=== PATIENT | female | born 1960 | race Caucasian/White ===

== ENCOUNTER 2019-03-15 01:52 | Emergency (ER) | payer MEDICAID, SELFPAY ==
[2019-03-15 01:53] VITALS: BP 179/105; PULSE 88; RESP 18; TEMP 36.6; O2SAT 98; BMI 31.9
--- NOTE | 2019-03-15 01:56 | RAD_ITS ---
HISTORY: CPChest PainRAD - Chest EXAM: XR Chest 1 View: COMPARISON: None FINDINGS: # of images incl. paperwork: 1 Lungs are clear. Heart is not enlarged. Bones are normal. Pulmonary vascularity is distinct. No effusions. RAD/Chest 1 View (Portable) IMPRESSION: Normal. at 0224 Reported and signed by: Dmitriy Alonso MD Electronically Signed: Dmitriy Alonso MD at 2:23 EDT Tel , Service support ,
--- NOTE | 2019-03-15 01:56 | EKG12_ITS ---
Test Reason : CP Blood Pressure : / mmHG Vent. Rate : 081 BPM Atrial Rate : 081 BPM P-R Int : 124 ms QRS Dur : 086 ms QT Int : 376 ms P-R-T Axes : 039 008 014 degrees QTc Int : 436 ms Normal sinus rhythm Normal ECG Confirmed by RANJAN CRUZ ([id number]), acquisition editor CHUCHO FRAZIER ([id number] on 03/17/2019 6:09:45 AM Referred By: SUNSHINE Confirmed By:RANJAN CRUZ
--- NOTE | 2019-03-15 01:58 | ED.DCSUM_ITS ---
- ER Visit Summary Date of Service: 03/15/19 Chief Complaint: Chest pain [] History of Present Illness: The patient is a 58 F presents to the emergency department with chest pain. The patient states that her symptoms began rather acutely tonight. She states she ate normally at about 10 PM. She states that about midnight, she is still hungry. States that she made some rice. She states that she took one bite, and had a midsternal burning. States that he felt short of breath and lightheaded. It lasted about 4 or 5 minutes. She does have a history of GERD, but states this felt different. She has no known history of coronary vascular disease. She does have a strong family history of multiple risk factors. States currently, she is feeling improved, was concerned because again his pain did seem different. She denies any shortness of breath. She denies any exertional symptoms. She states otherwise, she has been in her normal state of health. Physical Examination: Vital signs reviewed General: Well-nourished, well-developed Head: Normocephalic, atraumatic Eyes: Pupils equal and reactive, extraocular muscles intact Neck, supple, no lymphadenopathy Heart: Regular rate and rhythm Respiratory: No distress, clear bilaterally Abdomen: Soft, nontender, nondistended, no peritoneal signs Back: Nontender Extremities: Nontender, no edema, no cords Skin: Normal color no rash Neuro: Alert and oriented, no focal or lateralizing deficits Test Results: [] Emergency Department Course and Treatment: The patient's presentation does seem atypical for acute coronary syndrome. EKG was obtained on patient arrival. Sinus rhythm without acute ischemic change. It was unchanged from prior. Screening labs are obtained. Patient's cardiac enzymes are normal. She did have improvement after GI cocktail. Again, my suspicion for cardiac is very low, however the patient does have risk factors. I did have a long discussion with her. She does have a heart score of 3, receiving points for her age and medical comorbidities. My suspicion is that this is likely an esophageal spasm, but given her risks she did agree to repeat cardiac enzyme testing at the 3- hour lia. This is still negative. The patient also states that sometimes, she wakes up and feels short of breath. She also has difficulty sleeping. I did review if she has had a sleep study, she states she has not had one for years. I do feel that appropriate outpatient follow-up with both surgery and pulmonology would be appropriate for this patient to determine endoscopy and further outpatient work-up for her dyspnea. She is comfortable this plan of care. She will be discharged home. Treatment Plan: [] Disposition: Discharge Impression: 1. Chest pain 2. Esophageal spasm This note was generated with [employer] dictation software. It may contain incorrect words, spelling, and punctuation that were not noted in review of the chart prior to signing ED Disposition - Plan for ED Patient: Instructions: ED Chest Pain NonCardiac Referrals: Isaiah Gardner MD [STAFF PHYSICIAN] - Pavan Perez DO [STAFF PHYSICIAN] -
[2019-03-15 02:02] VITALS: O2SAT 99
[2019-03-15 02:07] LABS: Absolute Lymphocyte Count 4.27 X10^3/ul (0.83-4.51); Absolute Neutrophil Count 3.8 X10^3/uL (2.0-7.7); Basophil# 0.05 X10^3/uL; Basophil% 0.5 % (0-1); Eosinophil# 0.14 X10^3/uL; Eosinophils% 1.5 % (0-5); Hematocrit 40.6 % (37-47); Hemoglobin 13.3 g/dl (12.0-15.0); Lymphocyte # 4.27 X10^3/ul (4.0); Lymphocyte % 45.7 % (19-41); Mean Corp Hgb Conc 32.8 g/gl (32-36); Mean Corpuscular Hgb 29.8 pg (27.0-32.0); Mean Corpuscular Volume 90.8 fL (81-99); Mean Platelet Vol. 9.8 fl (6.2-12.0); Monocyte# 1.13 X10^3/uL; Monocyte% 12.1 % (0-10); Neutrophil # 3.75 X10^3/uL (2.7-7.7); Neutrophil % 40.1 % (47-70); POSITIVE COUNT NO; POSITIVE DIFFERENTIAL NO; POSITIVE MORPHOLOGY NO; Platelet Count 314 K/mm3 (150-450); RBC Distribution Width CV 13.2 % (11.6-14.6); RBC Distribution Width SD 43.3 fl (35.1-43.9); Red Blood Count 4.47 M/mm3 (4.2-5.4); White Blood Count 9.4 K/mm3 (4.4-11.0)
[2019-03-15] MEDS: 0.9% Normal Saline 1,000 ML 150 ML IV (02:07)
[2019-03-15] MEDS: Ondansetron 4 MG/2 ML Vial IV (02:09)
[2019-03-15] MEDS: Mag Hydrox/Al Hydrox/Simeth 30 ML UDC PO (02:10)
[2019-03-15] MEDS: Aspirin 81 MG TAB.CHEW 324 MG PO (02:11)
[2019-03-15 02:24] LABS: Anion Gap 7 (5-15); BUN 14 mg/dL (7-18); BUN/Creat Ratio 19.1 RATIO (10-20); Calcium,Total 9.1 mg/dL (8.5-10.1); Chloride 103 mmol/L (98-107); Creatinine, Serum 0.73 mg/dL (0.55-1.02); EST Glomerular Filtration Rate 87 mL/min (>60); Est Glom Filt Rate - Afr Amer 106 mL/min (>60); Estimated Creatinine Clearance 74.31 ml/min; Glucose 113 mg/dL (74-106); Lipase 284 U/L (73-393); Potassium 3.7 mmol/L (3.5-5.1); Sodium Level 139 mmol/L (136-145)
--- NOTE | 2019-03-15 02:33 | EKG12_ITS ---
Test Reason : REPEAT Blood Pressure : / mmHG Vent. Rate : 069 BPM Atrial Rate : 069 BPM P-R Int : 122 ms QRS Dur : 084 ms QT Int : 412 ms P-R-T Axes : 032 -05 -03 degrees QTc Int : 441 ms Normal sinus rhythm Moderate voltage criteria for LVH, may be normal variant Cannot rule out Septal infarct , age undetermined Abnormal ECG Confirmed by RANJAN CRUZ ([id number]), proposal editor CHUCHO FRAZIER ([id number] on 03/17/2019 6:09:57 AM Referred By: SUNSHINE Confirmed By:RANJAN CRUZ
[2019-03-15 03:16] VITALS: BP 144/88; PULSE 79; RESP 16; O2SAT 97
[2019-03-15 04:25] VITALS: BP 125/68; PULSE 70; RESP 14; O2SAT 98
[2019-03-15 05:20] VITALS: BP 125/68; PULSE 75; RESP 16; O2SAT 96
== END 2019-03-15 05:30 | disposition home or self-care (01) ==
PROVIDERS: Emergency Provider Emergency Medicine; Family Provider Family Medicine Sports Medicine; PCP Family Medicine Sports Medicine
DX: K22.4 Dyskinesia of esophagus (principal); R07.89 Other chest pain; R06.00 Dyspnea, unspecified; K21.9 Gastro-esophageal reflux disease without esophagitis; E11.9 Type 2 diabetes mellitus without complications; I10 Essential (primary) hypertension; E78.00 Pure hypercholesterolemia, unspecified; Z79.84 Long term (current) use of oral hypoglycemic drugs; Z79.899 Other long term (current) drug therapy; Z87.891 Personal history of nicotine dependence
CPT/HCPCS: 71045; 80048; 83690; 84484; 85025; 93005; 96361; 96374; 99285; J7030; A4216; J2405

== ENCOUNTER 2020-04-11 08:54 | Emergency (ER) | payer MEDICAID, SELFPAY ==
[2020-04-11 08:55] VITALS: BP 170/103; PULSE 69; RESP 18; TEMP 36.4; O2SAT 97; BMI 29.9
--- NOTE | 2020-04-11 09:11 | ED.VIS.GEN ---
History of Present Illness Chief Complaint: Headache Informant: Patient Narrative: 59-year-old female presents with migraine. Patient states that she gets frequent migraines. States that she is currently living in a [facility] and is unable to get access to her medications for her migraines. States that again yesterday evening. Attributes it to the chicken and milk that she had for dinner. Denies any head trauma. States this is exactly the same as her previous migraines. Denies any fever, chills, vision change, neck pain. Does admit to nausea without vomiting. Past Medical History - Allergies and Home Meds Allergies/Adverse Reactions: Allergies cefaclor [From Ceclor] Allergy (Verified 04/11/20 08:58) Unknown Cephalosporins Allergy (Verified 04/11/20 08:58) Unknown codeine Allergy (Verified 04/11/20 08:58) Rash erythromycin base Allergy (Verified 04/11/20 08:58) Unknown fentanyl Allergy (Verified 04/11/20 08:58) Rash mold Allergy (Verified 04/11/20 08:58) Unknown nitrofurantoin [From Macrobid] Allergy (Verified 04/11/20 08:58) Other Penicillins Allergy (Verified 04/11/20 08:58) Rash Sulfa (Sulfonamide Antibiotics) Allergy (Verified 04/11/20 08:58) Rash sulfamethoxazole [From Bactrim] Allergy (Verified 04/11/20 08:58) Unknown tramadol HCl [From Ultram] Allergy (Verified 04/11/20 08:58) Unknown trimethoprim [From Bactrim] Allergy (Verified 04/11/20 08:58) Unknown OPIATES Allergy (Uncoded 04/11/20 08:58) Unknown STEROIDS Allergy (Uncoded 04/11/20 08:58) Unknown Primary Care Physician: Katerine Oliva MD [Primary Care Provider] - Past Medical History: - - Hypertension Surgical History: no surgical history Lives: - - Retirement Smoking Status: Never smoker Alcohol: None Drugs: None Review of Systems General: Denies: Chills, Fever, Sweats Eyes: Denies: Visual changes - bilaterally, Diplopia ENT: Denies: Rhinorrhea, Sore throat Cardiovascular: Denies: Chest pain, Palpitations Respiratory: Denies: Dyspnea, Cough, Dyspnea on exertion Gastrointestinal: Reports: Nausea. Denies: Abdominal pain, Vomiting, Diarrhea, Melena, Hematochezia Genitourinary: Denies: Dysuria, Hematuria, Frequency Musculoskeletal: Denies: Back pain, Extremity Pain Skin: Denies: Rash, Wounds Neurological: Reports: Headache. Denies: Weakness, Numbness Physical Exam Vital Signs/Narrative: Vital Signs Temp Pulse Resp BP Pulse Ox 04/11/20 08:55 97.6 F L 69 18 170/103 H 97 General: Well nourished, Well developed, No Acute Distress Head: Normocephalic, Atraumatic Eyes: Perrl, EOMI ENT: Moist mucous membranes, No rhinorrhea Neck: Supple, Nontender Cardiovascular: Regular rate, Regular rhythm, No murmurs Respiratory: No distress, CTA bilaterally, Chest nontender Abdomen: Soft, Nontender, Nondistended, Normal bowel sounds Back: Nontender, Normal Inspection Extremities: Nontender, No edema Skin: Normal color, No rash Neurological: Alert, Oriented x3, Cranial nerves II-XII grossly intact, Normal Strength, Normal Sensation Psychological: Normal affect, Normal Mood Diagnostic/Tx/Re-eval - Medical Decision Making Appears well and nontoxic. Vital signs within normal limits. No signs of meningismus. No focal neurologic deficit. Patient states this is exactly the same as her previous migraines. She was treated with 1 L of normal saline, Reglan, Benadryl, and Toradol. Patient feeling much improved following treatment. We will follow-up with her primary care provider and asked to return for any new or worsening symptoms. Stable at time of discharge. ED Disposition - Plan for ED Patient: Disposition: Home or Assisted Living Diagnosis: Migraine Instructions: ED, Migraine (Classical) Referrals: Katerine Oliva MD [Primary Care Provider] -
[2020-04-11] MEDS: DiphenhydrAMINE 50 MG/ML Syringe 25 MG IV (10:38)
[2020-04-11] MEDS: 0.9% Normal Saline 1,000 ML 999 ML IV (10:38)
[2020-04-11] MEDS: Metoclopramide 10 MG/2 ML Vial 5 MG IV (10:40)
[2020-04-11] MEDS: Ketorolac 15 MG/ML Vial IM (10:40)
[2020-04-11 11:47] VITALS: BP 123/77; PULSE 62; RESP 15; O2SAT 98
== END 2020-04-11 11:48 | disposition home or self-care (01) ==
PROVIDERS: Emergency Provider Emergency Medicine; PCP Family Medicine Sports Medicine
DX: G43.909 Migraine, unspecified, not intractable, without status migrainosus (principal); I10 Essential (primary) hypertension; Z59.0 Homelessness; Z88.0 Allergy status to penicillin; Z88.1 Allergy status to other antibiotic agents; Z88.2 Allergy status to sulfonamides; Z88.5 Allergy status to narcotic agent
CPT/HCPCS: 96361; 96372; 96374; 96375; 99284; J7030; A4216

== ENCOUNTER 2021-10-10 16:21 | Emergency (ER) | payer MEDICAID, SELFPAY ==
[2021-10-10 16:22] VITALS: BP 163/81; PULSE 100; RESP 18; TEMP 36.6; O2SAT 97; BMI 30.7
--- NOTE | 2021-10-10 17:35 | EX.ED.DYSGE1 ---
HPI History of Present Illness Chief Complaint: Rash Informant: patient Narrative Narrative: Patient's had a couple days of erythema and a burning sensation around her upper lip face and nose. She is wondering if this with athlete's foot from her dad's feet. She has no fevers or chills. Nothing really makes it better or worse. She denies any new mask or chemicals put on there other than triple antibiotic ointment after it started. Patient denied any medical problems or medicines to me. Then I talked to her more after looking in her chart. She has quite a few medical problems including diabetes. However she states she feels fine other than the face. Patient also has multiple allergies but has taken and tolerated doxycycline well. She cannot take any cephalosporin amoxicillin or penicillin. She cannot take sulfa. PFSH PFSH Home Medications Clobetasol Propionate/Emoll [Clobetasol Emollient 0.05% Crm] 30 g TP DAILY PRN PRN 10/20/16 [History Last Taken Unknown] alcohol swabs [Alcohol Prep Swabs] 1 ea TP DAILY 10/20/16 [History Last Taken Unknown] amlodipine [Norvasc] 5 mg PO DAILY #30 tab 10/20/16 [Rx Last Taken Unknown] budesonide [Pulmicort] 0.5 mg IH BID 10/20/16 [History Last Taken Unknown] chlorhexidine gluconate 1 applic TP DAILY 10/20/16 [History Last Taken Unknown] cyproheptadine 4 mg PO BID PRN PRN 10/20/16 [History Last Taken Unknown] epinephrine [Epipen] 0.3 mg IJ X1 PRN 10/20/16 [History Last Taken Unknown] estradiol 1 mg PO TID 10/20/16 [History Last Taken Unknown] estradiol [Estrace] 2 mg PO DAILY 10/20/16 [History Last Taken Unknown] estropipate 1.5 mg PO DAILY 10/20/16 [History Last Taken Unknown] ipratropium bromide 1 spray NASAL DAILY 10/20/16 [History Last Taken Unknown] lactulose [Constulose] 10 g PO DAILY 10/20/16 [History Last Taken Unknown] levothyroxine 112 mcg PO DAILY 10/20/16 [History Last Taken Unknown] lisinopril 10 mg PO DAILY #30 tab 10/20/16 [Rx Last Taken Unknown] loratadine 10 mg PO DAILY 10/20/16 [History Last Taken Unknown] meloxicam [Mobic] 7.5 mg PO BID PRN PRN 10/20/16 [History Last Taken Unknown] metformin 500 mg PO 4X/DAY 10/20/16 [History Last Taken Unknown] metronidazole [Metrogel] 1 applic VG DAILY PRN 10/20/16 [History Last Taken Unknown] multivitamin [Daily Multiple Vitamin] 1 ea PO DAILY 10/20/16 [History Last Taken Unknown] naproxen 500 mg PO BID 10/20/16 [History Last Taken Unknown] nystatin 1 applic TOPICAL QODAY 10/20/16 [History Last Taken Unknown] omeprazole 20 mg PO DAILY 10/20/16 [History Last Taken Unknown] pregabalin [Lyrica] 150 mg PO BID 10/20/16 [History Last Taken Unknown] promethazine 25 mg PO Q8H PRN PRN 10/20/16 [History Last Taken Unknown] rizatriptan 10 mg PO X1 10/20/16 [History Last Taken Unknown] simvastatin 20 mg PO QHS 10/20/16 [History Last Taken Unknown] spironolactone [Aldactone] 100 mg PO DAILY 10/20/16 [History Last Taken Unknown] triamcinolone acetonide [Nasacort] 1 spray NS BID 10/20/16 [History Last Taken Unknown] amlodipine 5 mg PO DAILY #30 tablet 10/27/16 [Rx Last Taken Unknown] lisinopril [Prinivil] 10 mg PO DAILY #30 tab 10/27/16 [Rx Last Taken Unknown] tizanidine 0.5 tab PO BID #30 tab 10/27/16 [Rx Last Taken Unknown] doxycycline monohydrate 100 mg PO BID #20 cap 10/10/21 [Rx Last Taken Unknown] Allergy/AdvReac Type Severity Reaction Status Date / Time cefaclor [From Ceclor] Allergy Unknown Verified 10/10/21 16:25 Cephalosporins Allergy Unknown Verified 10/10/21 16:25 codeine Allergy Rash Verified 10/10/21 16:25 erythromycin base Allergy Unknown Verified 10/10/21 16:25 fentanyl Allergy Rash Verified 10/10/21 16:25 mold Allergy Unknown Verified 10/10/21 16:25 nitrofurantoin Allergy Other Verified 10/10/21 16:25 [From Macrobid] Penicillins Allergy Rash Verified 10/10/21 16:25 Sulfa (Sulfonamide Allergy Rash Verified 10/10/21 16:25 Antibiotics) sulfamethoxazole Allergy Unknown Verified 10/10/21 16:25 [From Bactrim] tramadol HCl [From Ultram] Allergy Unknown Verified 04/11/20 08:58 trimethoprim [From Bactrim] Allergy Unknown Verified 04/11/20 08:58 OPIATES Allergy Unknown Uncoded 04/11/20 08:58 STEROIDS Allergy Unknown Uncoded 04/11/20 08:58 Social History Smoking Status: Unknown if ever smoked ROS ROS ED Constitutional Constitutional ED: Denies chills or fever(s) Eyes Eyes: Denies blurry vision ENT ENT ED: Reports other Details: See history of present illness. Cardiovascular Cardiovascular: Denies chest pain Respiratory/Chest Respiratory/Chest: Denies dyspnea Gastrointestinal Gastrointestinal: Denies nausea or vomiting Integumentary Reports rash EXAM Physical Exam Const Vital Signs: 10/10/21 16:22 Temperature 97.9 F Temperature Source Temporal Pulse Rate 100 Respiratory Rate 18 Blood Pressure 163/81 H Blood Pressure Mean 108 Pulse Ox 97 Oxygen Delivery Method Room Air Positive well nourished and well developed General Appearance ED: well developed and NAD; Negative for cyanotic or diaphoretic HEENT HEENT Narrative: Patient has erythema around the upper lip nose and the cheek right next to the nose. There is no abscess that I see. This is warm red and slightly raised. No vesicles. No weeping. Eyes PERRL and EOMs intact bilaterally Neck no JVD Resp normal respiratory effort and clear to auscultation bilaterally Cardio regular rate Neuro oriented x3 Sensorium / Orientation: alert Psych mental status grossly normal Skin Skin Narrative: Erythema of face as above. MDM MDM MDM Narrative Medical decision making narrative: This looks more like facial cellulitis than on tinea. She can use a topical antifungal cream. But I will start her on doxycycline. If it spreads, develops pain, she gets nausea vomiting fevers chills or headache she should return. Discharge Plan Triage Chief Complaint: Rash ED Provider: Ronaldo Capps Dx/Rx/DC Orders Clinical Impression: Cellulitis of face Instructions: ED Cellulitis, Facial Prescriptions: New doxycycline monohydrate 100 MG capsule 100 mg PO BID Qty: 20 RF: 0 No Action multivitamin [Daily Multiple] 1 EACH tablet 1 ea PO DAILY RF: 0 nystatin 1 APPLIC ointment 1 applic topical QODAY RF: 0 meloxicam [Mobic] 7.5 MG tablet 7.5 mg PO BID PRN PRN (Reason: inflammation) RF: 0 promethazine 25 MG tablet 25 mg PO Q8H PRN PRN (Reason: Nausea) RF: 0 omeprazole 20 MG capsule 20 mg PO DAILY RF: 0 budesonide [Pulmicort] 0.5 MG/2 ML suspension for nebulization 0.5 mg IH BID RF: 0 estradiol [Estrace] 2 MG tablet 2 mg PO DAILY RF: 0 alcohol swabs [Alcohol Prep Swabs] 1 EACH pads, medicated 1 ea TP DAILY RF: 0 epinephrine [EpiPen] 0.3 MG/0.3 ML auto-injector 0.3 mg IJ X1 PRN (Reason: allergic reaction) RF: 0 ipratropium bromide 1 SPRAY spray,non-aerosol 1 spray NASAL DAILY RF: 0 naproxen 500 MG tablet 500 mg PO BID RF: 0 levothyroxine 112 MCG tablet 112 mcg PO DAILY RF: 0 pregabalin [Lyrica] 150 MG capsule 150 mg PO BID RF: 0 chlorhexidine gluconate 15 ML towelette 1 applic TP DAILY RF: 0 metformin 500 MG tablet 500 mg PO 4X/DAY RF: 0 metronidazole [Vandazole] 1 APPLIC gel 1 applic VG DAILY PRN (Reason: vaginal itch) RF: 0 spironolactone [Aldactone] 100 MG tablet 100 mg PO DAILY RF: 0 estropipate 1.5 MG tablet 1.5 mg PO DAILY RF: 0 cyproheptadine 4 MG tablet 4 mg PO BID PRN PRN (Reason: Itching) RF: 0 estradiol 1 MG tablet 1 mg PO TID RF: 0 rizatriptan 10 MG tablet,disintegrating 10 mg PO X1 RF: 0 simvastatin 20 MG tablet 20 mg PO QHS RF: 0 triamcinolone acetonide [Nasacort] 1 SPRAY aerosol,spray 1 spray NS BID RF: 0 loratadine 10 MG tablet 10 mg PO DAILY RF: 0 lactulose [Constulose] 10 GM/15 ML solution 10 g PO DAILY RF: 0 Clobetasol Propionate/Emoll [Clobetasol Emollient 0.05% Crm] 15 GM Cream..G. 30 g TP DAILY PRN PRN (Reason: Itching) RF: 0 amlodipine [Norvasc] 5 MG tablet 5 mg PO DAILY Qty: 30 RF: 0 lisinopril 10 MG tablet 10 mg PO DAILY Qty: 30 RF: 0 tizanidine 4 MG tablet 0.5 tab PO BID Qty: 30 RF: 1 amlodipine 5 MG tablet 5 mg PO DAILY Qty: 30 RF: 1 lisinopril [Prinivil] 10 MG tablet 10 mg PO DAILY Qty: 30 RF: 1 Primary Care Provider: Mario Eckert Referrals: Mario Eckert MD [Primary Care Provider] - 3-5 Days if not improving Disposition Disposition: Home, Self Care
[2021-10-10] MEDS: Doxycycline 100 MG CAPSULE PO (17:54)
== END 2021-10-10 17:58 | disposition home or self-care (01) ==
PROVIDERS: Emergency Provider Emergency Medicine; PCP Internal Medicine
DX: L03.211 Cellulitis of face (principal)
CPT/HCPCS: 99283

== ENCOUNTER 2023-11-11 19:02 | Emergency (ER) | payer MEDICAID, SELFPAY ==
[2023-11-11 19:10] VITALS: BP 151/91; PULSE 82; RESP 18; TEMP 36.5; O2SAT 96; BMI 27.1
--- NOTE | 2023-11-11 19:40 | EX.ED.DYSGE1 ---
HPI History of Present Illness Chief Complaint: Dizziness Informant: patient Narrative Narrative: Patient presents with 2-3 episodes today where she had a brief period of spinning. She states this was not dizziness this was the world spinning around. The first time she had mild nausea but no vomiting. No dysfunction or fall. No headaches. No neurologic symptoms. She is concerned that this is due to her thyroid medicine. Evidently she has always been on 125 replacement thyroid. For the last year they tried her at 112 but that was just way too low. They moved her back up to 125 at the end of September. She just had her thyroid function checked on Wednesday and she states that she was too high. But she is not sure if this was a TSH that was too high or her medicine was too high but they did not change her dose and they are going to recheck her in 3 months. Patient also has many allergies to many medicines. She is also thinking that PTSD from her prior could be causing this. She thought a cleaning chemical in her house could have caused this but then she states that she was not cleaning and there were no chemicals. She does not have chest pain or trouble breathing. PFSH PFSH Home Medications Clobetasol Propionate/Emoll [Clobetasol Emollient 0.05% Crm] 30 g TP DAILY PRN PRN Itching 10/20/16 [History Last Taken Unknown] alcohol swabs (Alcohol Prep Swabs) 1 ea TP DAILY 10/20/16 [History Last Taken Unknown] amlodipine 5 mg tablet (Norvasc) 5 mg PO DAILY #30 tabs 10/20/16 [Rx Last Taken Unknown] budesonide 0.5 mg/2 mL suspension for nebulization (Pulmicort) 0.5 mg IH BID 10/20/16 [History Last Taken Unknown] chlorhexidine gluconate 2 % towelette 1 applic TP DAILY 10/20/16 [History Last Taken Unknown] cyproheptadine 4 mg tablet 4 mg PO BID PRN PRN Itching 10/20/16 [History Last Taken Unknown] epinephrine 0.3 mg/0.3 mL injection, auto-injector (EpiPen) 0.3 mg X1 PRN allergic reaction 10/20/16 [History Last Taken Unknown] estradiol 1 mg tablet 1 mg PO TID 10/20/16 [History Last Taken Unknown] estradiol 2 mg tablet (Estrace) 2 mg PO DAILY 10/20/16 [History Last Taken Unknown] estropipate 1.5 mg tablet 1.5 mg PO DAILY 10/20/16 [History Last Taken Unknown] ipratropium bromide 42 mcg (0.06 %) nasal spray 1 spray DAILY 10/20/16 [History Last Taken Unknown] lactulose 10 gram/15 mL oral solution (Constulose) 10 g PO DAILY 10/20/16 [History Last Taken Unknown] levothyroxine 112 mcg tablet 112 mcg PO DAILY 10/20/16 [History Last Taken Unknown] lisinopril 10 mg tablet 10 mg PO DAILY #30 tabs 10/20/16 [Rx Last Taken Unknown] loratadine 10 mg tablet 10 mg PO DAILY 10/20/16 [History Last Taken Unknown] meloxicam 7.5 mg tablet (Mobic) 7.5 mg PO BID PRN PRN inflammation 10/20/16 [History Last Taken Unknown] metformin 500 mg tablet 500 mg PO 4X/DAY 10/20/16 [History Last Taken Unknown] metronidazole 0.75 % (37.5 mg/5 gram) vaginal gel (Vandazole) 1 applic VG DAILY PRN vaginal itch 10/20/16 [History Last Taken Unknown] multivitamin (Daily Multiple tablet) 1 ea PO DAILY 10/20/16 [History Last Taken Unknown] naproxen 500 mg tablet 500 mg PO BID 10/20/16 [History Last Taken Unknown] nystatin 100,000 unit/gram topical ointment 1 applic topical QODAY 10/20/16 [History Last Taken Unknown] omeprazole 20 mg capsule,delayed release 20 mg PO DAILY 10/20/16 [History Last Taken Unknown] pregabalin 150 mg capsule (Lyrica) 150 mg PO BID 10/20/16 [History Last Taken Unknown] promethazine 25 mg tablet 25 mg PO Q8H PRN PRN Nausea 10/20/16 [History Last Taken Unknown] rizatriptan 10 mg disintegrating tablet 10 mg PO X1 10/20/16 [History Last Taken Unknown] simvastatin 20 mg tablet 20 mg PO QHS 10/20/16 [History Last Taken Unknown] spironolactone 100 mg tablet (Aldactone) 100 mg PO DAILY 10/20/16 [History Last Taken Unknown] triamcinolone acetonide 55 mcg nasal spray aerosol (Nasacort) 1 spray NS BID 10/20/16 [History Last Taken Unknown] amlodipine 5 mg tablet 5 mg PO DAILY ##30 10/27/16 [Rx Last Taken Unknown] lisinopril 10 mg tablet (Prinivil) 10 mg PO DAILY #30 tabs 10/27/16 [Rx Last Taken Unknown] tizanidine 4 mg tablet 0.5 tab PO BID #30 tabs 10/27/16 [Rx Last Taken Unknown] doxycycline monohydrate 100 mg capsule 100 mg PO BID #20 caps 10/10/21 [Rx Last Taken Unknown] meclizine 25 mg tablet 25 mg PO 4X/DAY PRN PRN Dizziness #20 tabs 11/11/23 [Rx Last Taken Unknown] Allergy/AdvReac Type Severity Reaction Status Date / Time buprenorphine Allergy PT UNSURE Verified 11/11/23 19:10 OF REACTION cefaclor [From Ceclor] Allergy Unknown Verified 11/11/23 19:10 Cephalosporins Allergy Unknown Verified 11/11/23 19:10 codeine Allergy Rash Verified 11/11/23 19:10 Corticosteroids Allergy NEEDS Verified 11/11/23 19:10 (Glucocorticoids) FOLLOW-UP [steroids] erythromycin base Allergy Unknown Verified 11/11/23 19:10 fentanyl Allergy Rash Verified 11/11/23 19:10 isopropyl alcohol Allergy Rash Verified 11/11/23 19:10 latex Allergy PT UNSURE Verified 11/11/23 19:10 OF REACTION levothyroxine Allergy Other Verified 11/11/23 19:10 mold Allergy Unknown Verified 11/11/23 19:10 nitrofurantoin Allergy Other Verified 11/11/23 19:10 [From Macrobid] oats Allergy Abd Verified 11/11/23 19:10 cramps/diarrhea Opioids - Morphine Analogues Allergy NEEDS Verified 11/11/23 19:10 FOLLOW-UP oxycodone Allergy Vomiting Verified 11/11/23 19:10 Penicillins Allergy Rash Verified 11/11/23 19:10 Sulfa (Sulfonamide Allergy Rash Verified 11/11/23 19:10 Antibiotics) sulfamethoxazole Allergy Unknown Verified 11/11/23 19:10 [From Bactrim] tramadol HCl [From Ultram] Allergy Unknown Verified 11/11/23 19:10 trimethoprim [From Bactrim] Allergy Unknown Verified 11/11/23 19:10 wheat bran Allergy Abd Verified 11/11/23 19:10 [From Senokot Wheat Bran] cramps/diarrhea whey Allergy Abd Verified 11/11/23 19:10 cramps/diarrhea Social History Smoking Status: Unknown if ever smoked ROS ROS ED ROS Narrative A complete review of systems was performed and is negative except as documented in the history of present illness. Some specific details below. Constitutional: No recent fevers or chills. She does not feel systemically ill. In between these brief episodes she feels just fine. EYE: No visual complaints or pain. She has spinning but no actual change in her vision. ENT: No difficulty swallowing. No swelling. No pain. CV: No chest pain or palpitations. Not syncopal or presyncopal. Respiratory: No dyspnea. No hemoptysis. No difficulty taking breaths. GI: Mild nausea only with the first episode. None now. She never vomited. : No frequency dysuria or hematuria. Musculoskeletal: No recent trauma. No pains. Skin: No rash. Nondiaphoretic. Neuro: No weakness or numbness. See history of present illness. Endocrine: No polyuria or polydipsia. EXAM Physical Exam Narrative Exam Narrative: CONSTITUTIONAL: Patient is nontoxic in appearance. The patient looks comfortable. HEENT: No notable trauma. Mucous membranes moist. No sinus tenderness. No indication of pain with swallowing. Tympanic membranes are both normal. EYES: No conjunctival injection. No proptosis. CARDIOVASCULAR: Regular rate. Regular rhythm. No notable murmur. No JVD. RESPIRATORY: No respiratory distress. Breathing is unlabored. No wheezes. No rhonchi. No rales. No pain with a deep breath. GASTROINTESTINAL: Not distended. Bowel sounds are normal. No tenderness. GENITOURINARY: No tenderness over the bladder. No CVA tenderness. MUSCULOSKELETAL: Atraumatic. No peripheral edema. No tenderness. NEUROLOGICAL: Patient is alert and appropriate. No focal deficit noted. Patient is oriented x 3. There is no discoordination. She can turn her left right up and down and gets no symptoms and is not having symptoms now. SKIN: No noted rashes. No diaphoresis. PSYCHIATRIC: Patient is mildly anxious. Understandable considering her concerns. Const Vital Signs: 11/11/23 19:10 11/11/23 19:31 Temperature 97.7 F L Temperature Source Temporal Pulse Rate 82 Respiratory Rate 18 Respiratory Effort Normal Non-Labored Respiratory Pattern Normal Blood Pressure 151/91 H Blood Pressure Mean 111 Pulse Ox 96 Oxygen Delivery Method Room Air MDM MDM MDM Narrative Medical decision making narrative: Patient's CBC is overall normal. Patient's electrolytes are not showing any marked abnormalities. Mild elevation of the chloride and glucose but this is not causing her symptoms. Patient's TSH is quite high at 15.6. However, this is not unexpected as she has just been restarted back on thyroid meds after being off for quite some time. She will need to stay on her thyroid meds. This is going to be checked as an outpatient per her primary doctor. She is not having vertigo now. I will write for some meclizine that she can take on a PRN basis if she has symptoms. Lab Data Attestation: I reviewed the patient's lab results. Labs: Laboratory Results - last 24 hr 11/11/23 19:50 WBC 6.9 RBC 4.06 L Hgb 12.3 Hct 37.1 MCV 91.4 MCH 30.3 MCHC 33.2 RDW Std Deviation 44.8 H RDW Coeff of Samy 13.2 Plt Count 296 MPV 9.8 Immature Gran % (Auto) 0.300 Neut % (Auto) 57.0 Lymph % (Auto) 28.4 [place] % (Auto) 13.0 H Eos % (Auto) 0.9 Baso % (Auto) 0.4 Absolute Neuts (auto) 4.0 Absolute Lymphs (auto) 1.97 Nucleated RBC % 0 Sodium 141 Potassium 3.7 Chloride 110 H Carbon Dioxide 27.0 Anion Gap 4 L BUN 13 Creatinine 0.78 Estim Creat Clear Calc 73.63 Est GFR (MDRD) Af Amer 96 Est GFR (MDRD) Non-Af 80 BUN/Creatinine Ratio 16.6 Glucose 115 H Calcium 8.9 TSH 15.60 H Discharge Plan Triage Chief Complaint: Dizziness ED Provider: Ronaldo Capps Dx/Rx/DC Orders Clinical Impression: Hypothyroidism, Vertigo Instructions: ED BPV Vertigo, ED Hypothyroidism Prescriptions: New meclizine 25 mg tablet 25 mg PO 4X/DAY PRN PRN (Reason: Dizziness) Qty: 20 0RF No Action multivitamin [Daily Multiple] 1 EACH tablet 1 ea PO DAILY nystatin 1 APPLIC ointment 1 applic topical QODAY meloxicam [Mobic] 7.5 MG tablet 7.5 mg PO BID PRN PRN (Reason: inflammation) promethazine 25 MG tablet 25 mg PO Q8H PRN PRN (Reason: Nausea) omeprazole 20 MG capsule 20 mg PO DAILY budesonide [Pulmicort] 0.5 MG/2 ML suspension for nebulization 0.5 mg IH BID estradiol [Estrace] 2 MG tablet 2 mg PO DAILY alcohol swabs [Alcohol Prep Swabs] 1 EACH pads, medicated 1 ea TP DAILY epinephrine [EpiPen] 0.3 MG/0.3 ML auto-injector 0.3 mg IJ X1 PRN (Reason: allergic reaction) ipratropium bromide 1 SPRAY spray,non-aerosol 1 spray NASAL DAILY naproxen 500 MG tablet 500 mg PO BID levothyroxine 112 MCG tablet 112 mcg PO DAILY pregabalin [Lyrica] 150 MG capsule 150 mg PO BID chlorhexidine gluconate 15 ML towelette 1 applic TP DAILY metformin 500 MG tablet 500 mg PO 4X/DAY metronidazole [Vandazole] 1 APPLIC gel 1 applic VG DAILY PRN (Reason: vaginal itch) spironolactone [Aldactone] 100 MG tablet 100 mg PO DAILY estropipate 1.5 MG tablet 1.5 mg PO DAILY cyproheptadine 4 MG tablet 4 mg PO BID PRN PRN (Reason: Itching) estradiol 1 MG tablet 1 mg PO TID rizatriptan 10 MG tablet,disintegrating 10 mg PO X1 simvastatin 20 MG tablet 20 mg PO QHS triamcinolone acetonide [Nasacort] 1 SPRAY aerosol,spray 1 spray NS BID loratadine 10 MG tablet 10 mg PO DAILY lactulose [Constulose] 10 GM/15 ML solution 10 g PO DAILY Clobetasol Propionate/Emoll [Clobetasol Emollient 0.05% Crm] 15 GM Cream..G. 30 g TP DAILY PRN PRN (Reason: Itching) amlodipine [Norvasc] 5 MG tablet 5 mg PO DAILY Qty: 30 0RF lisinopril 10 MG tablet 10 mg PO DAILY Qty: 30 0RF tizanidine 4 MG tablet 0.5 tab PO BID Qty: 30 1RF amlodipine 5 MG tablet 5 mg PO DAILY Qty: 30 1RF lisinopril [Prinivil] 10 MG tablet 10 mg PO DAILY Qty: 30 1RF doxycycline monohydrate 100 MG capsule 100 mg PO BID Qty: 20 0RF Primary Care Provider: Mario Eckert Referrals: Mario Eckert MD [Primary Care Provider] - 3-5 Days if not improving Disposition Disposition: Home, Self Care
[2023-11-11 20:00] LABS: Absolute Lymphocyte Count 1.97 X10^3/uL (0.83-4.51); Basophil# 0.03 X10^3/uL; Basophil% 0.4 % (0-1); Eosinophil# 0.06 X10^3/uL; Eosinophils% 0.9 % (0-5); Hematocrit 37.1 % (37-47); Hemoglobin 12.3 g/dL (12.0-15.0); Lymphocyte # 1.97 X10^3/ul (0.83-4.51); Lymphocyte % 28.4 % (19-41); Mean Corp Hgb Conc 33.2 g/dL (32-36); Mean Corpuscular Hgb 30.3 pg (27.0-32.0); Mean Corpuscular Volume 91.4 fL (81-99); Mean Platelet Vol. 9.8 fl (6.2-12.0); NRBC Flagged by Analyzer 0 % (0-5); Neutrophil # 3.96 X10^3/uL (2.7-7.7); Platelet Count 296 K/mm3 (150-450); RBC Distribution Width CV 13.2 % (11.6-14.6); RBC Distribution Width SD 44.8 fl (35.1-43.9); Red Blood Count 4.06 M/mm3 (4.2-5.4); White Blood Count 6.9 K/mm3 (4.4-11.0)
--- OUTSIDE RECORDS SUMMARY | 2023-11-11 20:00 | XMS RPT_ITS | CCD ---
Author Name Unknown Address [address] [place] [address] Organization [facility] Care Team Providers Care Environmental Lead Name Role Phone Tnoi Johnson DO Jennifer Unavailable [place] ORDNANCE TECHNICIAN.Nyasia MCNULTY Unavailable [phone] Shannan Raymond Unavailable Mario John MD Primary Care Provider ALVARO, MARIO A Primary Care Unavailable SHALOM GARZA Attending Unavailable ALVARO, MARIO A Primary Care Unavailable MARILIA WAGNER Attending Unavailable ALVARO, MARIO A Primary Care Unavailable ALVARO, MARIO A Referring Unavailable ALVARO, MARIO A Primary Care Unavailable RONNA FENG Attending Unavailable ALVARO, MARIO A Primary Care Unavailable TRENTON BRANCH Attending Unavailable CHULA VO Referring Unavailab le ALVARO, MARIO A Primary Care Unavailable ALVARO, MARIO A Primary Care Unavailable ALVARO, MARIO A Primary Care Unavailable ALVARO, MARIO A Primary Care Unavailable AVLARO, MARIO A Attending Unavailable ALVARO, MARIO A Primary Care Unavailable BERRY GREENFIELD Attending Unavailable ALVARO, MARIO A Primary Care Unavailable ANNE RAMIREZ Attending Unavailable ALVARO, MARIO A Primary Care Unavailable KYUNG CONROY Attending Unavailable SHALOM GARZA Referring Unavailable ALVARO, MARIO A Primary Care Unavailable REBECCA RICCI Attending Unavailable ALVARO, MARIO A Primary Care Unavailable TRENTON BRANCH Referring Unavailable ALVARO, MARIO A Primary Care Unavailable JOSE CARLOSTRENTON VALDES Attending Unavailable ALVARO, MARIO A Primary Care Unavailable ALVARO, MARIO A Referring Unavailable CHULA VO Attending Unavailab le ALVARO, MARIO A Primary Care Unavailable KAHN, EUGENIE M Referring Unavailable ALVARO, MARIO A Primary Care Unavailable KAHN, EUGENIE M Referring Unavailable KAHN, EUGENIE M Attending Unavailable ALVARO, MARIO A Primary Care Unavailable ALVARO, MARIO A Attending Unavailable ALVARO, MARIO A Primary Care Unavailable JENARO COLMENARES Attending Unavailable ALVARO, MARIO A Primary Care Unavailable IRISH RAMOS Attending Unavailable ALVARO, MARIO A Primary Care Unavailable ALVARO, MARIO A Referring Unavailable ALVARO, MARIO A Attending Unavailable ALVARO, MARIO A Primary Care Unavailable RONNA FENG Attending Unavailable ALVARO, MARIO A Primary Care Unavailable MARILIA WAGNER Attending Unavailable ALVARO, MARIO A Primary Care Unavailable MARILIA WAGNER Referring Unavailable ALVARO, MARIO A Primary Care Unavailable MARILIA WAGNER Referring Unavailable Allergies Allergy Classification Reported Allergen(s) Allergy Type Date of Onset Reaction(s) Facility (20 sources) Buprenorphine; Translations: [BUPRENORPHINE HCL] Drug Allergy 04-28-20 07 Unknown [facility] (20 sources) Cefaclor; Translations: [CEFACLOR] Drug Allergy 06-22-20 07 Unknown [facility] (17 sources) Cephalosporins (Antibiotic); Translations: [CEPHALOSPORINS] Drug Allergy 01-31-20 03 [facility] (20 sources) Codeine; Translations: [CODEINE] Drug Allergy 07-11-20 03 GI Upset [facility] (20 sources) Erythromycin; Translations: [ERYTHROMYCIN BASE] Drug Allergy 01-31-20 03 [facility] (20 sources) Ethanol; Translations: [ALCOHOL] Drug Allergy 07-11-20 03 Rash [facility] Work Phone: (20 sources) fentaNYL; Translations: [FENTANYL] Drug Allergy 07-11-20 03 GI Upset, Vomiting [facility] (17 sources) Glucocorticoid; Translations: [CORTICOSTEROIDS (GLUCOCORTICOIDS)] Drug Allergy 10-27-19 17 Anaphylaxis [facility] Work Phone: (20 sources) Latex; Translations: [LATEX] Propensity to adverse reactions to drug 04-28-20 07 Unknown [facility] (20 sources) Mold Extract; Translations: [MOLD] Drug Allergy 03-15-20 19 Other: See Comments [facility] (20 sources) NITROFURANTOIN, MACROCRYSTALS / Nitrofurantoin, Monohydrate; Translations: [NITROFURANTOIN MONOHYD/M-CRYST] Drug Allergy 01-15-20 16 [facility] Work Phone: (20 sources) Oats preparation; Translations: [OATS] Drug Allergy 05-25-20 08 GI Upset [facility] (20 sources) oxyCODONE; Translations: [OXYCODONE] Drug Allergy 07-11-20 03 GI Upset, Vomiting [facility] (17 sources) Penicillins; Translations: [PENICILLINS] Drug Allergy 01-31-20 03 Rash, [facility] (20 sources) Sulfamethoxazole / Trimethoprim; Translations: [SULFAMETHOXAZOLE-T RIMETHOPRIM] Drug Allergy 06-01-20 16 [facility] (20 sources) Sulfonamides (Antibiotic); Translations: [SULFA (SULFONAMIDE ANTIBIOTICS)] Drug Allergy 01-31-20 03 [facility] (20 sources) Wheat bran; Translations: [WHEAT BRAN] Drug Allergy 05-25-20 08 GI Upset [facility] (20 sources) Med To Dry Up Milk After Childbirth [Other] Propensity to adverse reactions 07-11-20 03 Anaphylaxis [facility] (20 sources) Molds [Other] Propensity to adverse reactions 07-11-20 03 Shortness of Breath [facility] (20 sources) Steroids [Other] Propensity to adverse reactions 07-11-20 03 Unknown [facility] (20 sources) Weydex; Translations: [WEYDEX] Propensity to adverse reactions to drug 09-20-20 12 Unknown [facility] (20 sources) Cephalosporins (Antibiotic) Drug Allergy 01-31-20 03 [facility] (20 sources) Glucocorticoid preparation Drug Allergy 10-27-19 17 Anaphylaxis [facility] Work Phone: (20 sources) Penicillins Drug Allergy 01-31-20 03 Rash, [facility] (20 sources) Trimethoprim; Translations: [TRIMETHOPRIM] Drug Allergy 04-11-20 Unknown [facility] (3 sources) levothyroxine; Translations: [LEVOTHYROXINE] Drug Allergy 09-22-20 Other: See Comments [facility] Work Phone: (1 source) OTHER; Translations: [OTHER] Propensity to adverse reactions (disorder) 07-11-20 [facility] [place] [facility] Medications Current Medications Medication Drug Class(es) Dates Sig (Normalized) Sig (Original) clindamycin 150 mg oral capsule (1 source) Lincosamide Antibacterial Start: 01-01-2023 End: 01-06-2023 take 3 capsules by mouth three times daily clindamycin (CLEOCIN) 150 mg capsule Take 3 capsules by mouth three times daily for 5 days. 45 capsule 0 01/01/2023 01/06/2023 Active Completed/Discontinued Medications Medication Drug Class(es) Dates Sig (Normalized) Sig (Original) [id number] 200 actuat albuterol 0.09 mg/actuat metered dose inhaler (20 sources) beta2-Adrenergic Agonist Start: 06-18-2023 End: 08-30-2023 take 2 puff(s) by inhalation every four hours for wheezing albuterol HFA (PROVENTIL HFA, VENTOLIN HFA) 90 mcg/actuation inhaler INHALE 2 PUFFS DIRECTED EVERY 4 HOURS IF NEEDED FOR WHEEZING SHORTNESS OF BREATH 8.5 g 1 08/30/2023 Active Problems Active Problems Problem Classification Problem Date Documented Da te Episodic/Chronic Acquired foot deformities (1 source) Hammer toe; Translations: [Other hammer toe(s) (acquired), right foot] Chronic Allergic reactions (5 sources) Eczema; Translations: [Dermatitis, unspecified] Episodic Anxiety disorders (2 sources) Acute stress disorder; Translations: [Acute stress reaction] Chronic Complications of surgical procedures or medical care (20 sources) Postoperative hypothyroidism; Translations: [Postprocedural hypothyroidism] Onset: 06-21-2019 06-21-2019 Chronic Diabetes mellitus with complications (20 sources) Neuropathy due to diabetes mellitus; Translations: [Type 2 diabetes mellitus with diabetic neuropathy, unspecified] Onset: 11-09-2016 11-09-2016 Chronic Diabetes mellitus without complication (20 sources) Type 2 diabetes mellitus; Translations: [Type 2 diabetes mellitus without complications] 11-09-2016 Chronic Diseases of white blood cells (20 sources) Leukocytosis; Translations: [Elevated white blood cell count, unspecified] Onset: 12-03-2021 12-03-2021 Chronic Disorders of lipid metabolism (20 sources) Pure hypercholesterolemia ; Translations: [Pure hypercholesterolemia , unspecified] Onset: 09-30-2016 09-30-2016 Chronic Disorders of teeth and jaw (2 sources) Toothache; Translations: [Other specified disorders of teeth and supporting structures] Episodic Endometriosis (20 sources) Endometriosis (clinical); Translations: [Endometriosis, unspecified] Onset: 12-08-2022 Chronic Essential hypertension (20 sources) Essential hypertension; Translations: [Essential (primary) hypertension] Onset: 08-01-2017 08-01-2017 Chronic Genitourinary symptoms and ill-defined conditions (3 sources) Mixed urinary incontinence; Translations: [Mixed incontinence] Onset: 04-16-2023 Chronic Headache; including migraine (20 sources) Migraine with aura; Translations: [Migraine with aura, not intractable, without status migrainosus] Onset: 05-09-2003 04-02-2018 Chronic Menopausal disorders (20 sources) Menopausal symptom; Translations: [Menopausal and female climacteric states] Onset: 12-08-2022 Chronic Nutritional deficiencies (20 sources) Vitamin D deficiency; Translations: [Vitamin D deficiency, unspecified] 11-09-2016 Chronic Osteoarthritis (6 sources) Arthritis; Translations: [Unspecified osteoarthritis, unspecified site] Onset: 01-08-2023 Chronic Other aftercare (5 sources) Patient encounter status; Translations: [Other fci (current) drug therapy] Episodic Other aftercare (1 source) Drug therapy finding; Translations: [Other fci (current) drug therapy] Episodic Other connective tissue disease (20 sources) Plantar fasciitis; Translations: [Plantar fascial fibromatosis] 11-09-2016 Episodic Other connective tissue disease (1 source) Cyst ; Translations: [Ganglion, multiple sites] Episodic Other connective tissue disease (2 sources) Pain of toe of right foot; Translations: [Pain in right toe(s)] Episodic Other connective tissue disease (2 sources) Pain of toe of left foot; Translations: [Pain in left toe(s)] Episodic Other connective tissue disease (2 sources) Muscle pain; Translations: [Myalgia, unspecified site] Episodic Other connective tissue disease (1 source) Bilateral plantar fasciitis; Translations: [Plantar fascial fibromatosis] Episodic Other diseases of bladder and urethra (3 sources) Bladder dysfunction; Translations: [Neuromuscular dysfunction of bladder, unspecified] Chronic Other diseases of bladder and urethra (1 source) Neuromuscular dysfunction of bladder, unspecified; Translations: [Bladder dysfunction] Onset: 04-16-2023 Chronic Other diseases of veins and lymphatics (2 sources) Vascular insufficiency; Translations: [Venous insufficiency (chronic) (peripheral)] Episodic Other endocrine disorders (20 sources) Polycystic ovary; Translations: [Polycystic ovarian syndrome] Onset: 11-14-2003 02-04-2004 Chronic Other gastrointestinal disorders (20 sources) Celiac disease; Translations: [Celiac disease] Onset: 11-14-2003 02-04-2004 Chronic Other gastrointestinal disorders (2 sources) Dysphagia; Translations: [Dysphagia, unspecified] Episodic Other inflammatory condition of skin (3 sources) Rosacea; Translations: [Rosacea, unspecified] Chronic Other inflammatory condition of skin (1 source) Seborrheic dermatitis; Translations: [Seborrheic dermatitis, unspecified] Episodic Other injuries and conditions due to external causes (1 source) Unspecified injury of left hip, initial encounter; Translations: [Hip injury, left, initial encounter] Onset: 11-08-2023 Episodic Other lower respiratory disease (1 source) Cough; Translations: [Other cough] Episodic Other lower respiratory disease (1 source) Dyspnea; Translations: [Shortness of breath] Episodic Other nervous system disorders (20 sources) Chronic pain syndrome; Translations: [Chronic pain syndrome] Onset: 04-27-2012 04-27-2012 Chronic Other nervous system disorders (3 sources) Impairment of balance; Translations: [Other abnormalities of gait and mobility] Episodic Other non-traumatic joint disorders (20 sources) Arthropathy of joint of hand; Translations: [Polyarthritis, unspecified] Onset: 12-18-2015 12-18-2015 Chronic Other non-traumatic joint disorders (1 source) Pain in left hip; Translations: [Left hip pain] Onset: 11-08-2023 Episodic Other nutritional; endocrine; and metabolic disorders (20 sources) Obese class I; Translations: [Obesity, unspecified] Onset: 01-20-2019 01-20-2019 Chronic Other screening for suspected conditions (not mental disorders or infectious disease) (1 source) Mammography abnormal; Translations: [Other abnormal and inconclusive findings on diagnostic imaging of breast] Episodic Other skin disorders (20 sources) Disorder of skin of vulva; Translations: [Disorder of the skin and subcutaneous tissue, unspecified] 06-13-2020 Episodic Other skin disorders (1 source) Hypertrophic scar; Translations: [Hypertrophic scar] Episodic Other skin disorders (2 sources) Ingrowing nail; Translations: [Ingrowing nail] Episodic Other skin disorders (2 sources) Excessive hair growth; Translations: [Hypertrichosis, unspecified] Episodic Other upper respiratory disease (10 sources) Seasonal allergy; Translations: [Other seasonal allergic rhinitis] Chronic Other upper respiratory disease (1 source) Pain of nose; Translations: [Other specified disorders of nose and nasal sinuses] Episodic Other upper respiratory disease (1 source) Atrophic rhinitis; Translations: [Other specified disorders of nose and nasal sinuses] Episodic Other upper respiratory disease (1 source) Crusting on nose; Translations: [Other specified disorders of nose and nasal sinuses] Episodic Other upper respiratory disease (2 sources) Change in voice; Translations: [Unspecified voice and resonance disorder] Episodic Other upper respiratory infections (1 source) Acute maxillary sinusitis; Translations: [Acute maxillary sinusitis, unspecified] Episodic Peripheral and visceral atherosclerosis (2 sources) Peripheral vascular disease; Translations: [Peripheral vascular disease, unspecified] Chronic Residual codes; unclassified (1 source) Flushing; Translations: [Flushing] Episodic Spondylosis; intervertebral disc disorders; other back problems (20 sources) Prolapsed cervical intervertebral disc without myelopathy; Translations: [Other cervical disc displacement, unspecified cervical region] Onset: 12-25-2003 02-04-2004 Chronic Unclassified (1 source) OPENED IN ERROR 06-17-2023 Viral infection (5 sources) Verruca vulgaris; Translations: [Other viral warts] Episodic Past or Other Problems Problem Classification Problem Date Documented Da te Episodic/Chronic Other aftercare (1 source) Other buttermaker helper (current) drug therapy; Translations: [Encounter for long-term (current) use of medications] Onset: 01-08-2023 Episodic Other connective tissue disease (20 sources) Fibromyalgia; Translations: [Fibromyalgia] Onset: 04-27-2012 04-27-2012 Episodic Other connective tissue disease (20 sources) Ganglion cyst; Translations: [Ganglion, unspecified site] Onset: 12-03-2021 12-03-2021 Episodic Other connective tissue disease (1 source) Fibromyalgia; Translations: [Fibromyalgia] Onset: 04-27-2012 Episodic Other gastrointestinal disorders (20 sources) Constipation; Translations: [Constipation, unspecified] Onset: 12-03-2021 12-03-2021 Episodic Other nervous system disorders (1 source) Other abnormalities of gait and mobility; Translations: [Balance disorder] Onset: 04-16-2023 Episodic Other non-traumatic joint disorders (20 sources) Multiple joint pain; Translations: [Pain in unspecified joint] Onset: 10-13-2017 10-13-2017 Episodic Other non-traumatic joint disorders (20 sources) Ankle stiff; Translations: [Stiffness of unspecified ankle, not elsewhere classified] Onset: 03-03-2018 03-03-2018 Episodic Other skin disorders (20 sources) Hirsutism; Translations: [Hirsutism] Onset: 12-08-2022 Episodic Other skin disorders (1 source) Hypertrichosis, unspecified; Translations: [Excessive hair growth] Onset: 12-22-2022 Episodic Other skin disorders (1 source) Hirsutism; Translations: [Hirsutism] Onset: 12-08-2022 Episodic Spondylosis; intervertebral disc disorders; other back problems (20 sources) Neck pain; Translations: [Cervicalgia] Onset: 12-25-2003 02-04-2004 Episodic Results Test Name Value Interpretation Reference Range Facil ity Vital Signs Date Time Vital Sign Value Performing Clinician Faci lity 08-16-2023 19:11-0500 Body height 162.6 cm Mario John MD Work Phone: [facility] 08-16-2023 19:11-0500 Body temperature 97.2 [degF] Mario John MD Work Phone: [facility] 08-16-2023 19:11-0500 Body weight 74.84 kg Mario John MD Work Phone: [facility] 08-16-2023 19:11-0500 Diastolic blood pressure 81 mm[Hg] Mairo John MD Work Phone: [facility] 08-16-2023 19:11-0500 Heart rate 74 /min Mario John MD Work Phone: [facility] 08-16-2023 19:11-0500 Respiratory rate 16 /min Mario John MD Work Phone: [facility] 08-16-2023 19:11-0500 SaO2% (BldA) [Mass fraction] 99 % Mario John MD Work Phone: [facility] 08-16-2023 19:11-0500 Systolic blood pressure 121 mm[Hg] Mario John MD Work Phone: [facility] 04-21-2023 14:17-0400 Body height 162.6 cm Trenton Branch DO Work Phone: [facility] 04-21-2023 14:17-0400 Body weight 77.56 kg Trenton Smileyry DO Work Phone: [facility] 04-21-2023 14:17-0400 Respiratory rate 12 /min Trenton Smileyry DO Work Phone: [facility] 03-24-2023 14:43-0400 Body height 162.6 cm Anne Ramirez ORDNANCE TECHNICIAN.WATER TREATMENT PLANT SUPERVISOR Work Phone: [facility] 03-24-2023 14:43-0400 Body weight 77.56 kg Anne Ramirez ORDNANCE TECHNICIAN.WATER TREATMENT PLANT SUPERVISOR Work Phone: [facility] 03-24-2023 14:43-0400 Diastolic blood pressure 82 mm[Hg] Anne Ramirez ORDNANCE TECHNICIAN.WATER TREATMENT PLANT SUPERVISOR Work Phone: [facility] 03-24-2023 14:43-0400 Heart rate 85 /min Anne Ramirez ORDNANCE TECHNICIAN.WATER TREATMENT PLANT SUPERVISOR Work Phone: [facility] 03-24-2023 14:43-0400 Systolic blood pressure 140 mm[Hg] Anne Ramirez ORDNANCE TECHNICIAN.WATER TREATMENT PLANT SUPERVISOR Work Phone: [facility] 03-12-2023 15:05-0400 Body height 162.6 cm Trenton Branch DO Work Phone: [facility] 03-12-2023 15:05-0400 Body weight 79.38 kg Trenton Branch DO Work Phone: [facility] 03-01-2023 19:19-0400 Body height 162.6 cm Mario John MD Work Phone: [facility] 03-01-2023 19:19-0400 Body temperature 98.1 [degF] Mario John MD Work Phone: [facility] 03-01-2023 19:19-0400 Body weight 79.38 kg Mario John MD Work Phone: [facility] 03-01-2023 19:19-0400 Diastolic blood pressure 87 mm[Hg] Mario John MD Work Phone: [facility] 03-01-2023 19:19-0400 Heart rate 85 /min Mario John MD Work Phone: [facility] 03-01-2023 19:19-0400 Respiratory rate 16 /min Mario John MD Work Phone: [facility] 03-01-2023 19:19-0400 SaO2% (BldA) [Mass fraction] 99 % Mario John MD Work Phone: [facility] 03-01-2023 19:19-0400 Systolic blood pressure 128 mm[Hg] Mario John MD Work Phone: [facility] 01-27-2023 15:20-0400 Body height 162.6 cm Marilia Wagner ORDNANCE TECHNICIAN.WATER TREATMENT PLANT SUPERVISOR Work Phone: [facility] 01-27-2023 15:20-0400 Body temperature 98.29 [degF] Marilia Wagner ORDNANCE TECHNICIAN.WATER TREATMENT PLANT SUPERVISOR Work Phone: [facility] 01-27-2023 15:20-0400 Body weight 76.02 kg Marilia Rygaby ORDNANCE TECHNICIAN.WATER TREATMENT PLANT SUPERVISOR Work Phone: [facility] 01-27-2023 15:20-0400 Diastolic blood pressure 77 mm[Hg] Marilia Adriennel ORDNANCE TECHNICIAN.WATER TREATMENT PLANT SUPERVISOR Work Phone: [facility] 01-27-2023 15:20-0400 Heart rate 95 /min Marilia Deleonl ORDNANCE TECHNICIAN.WATER TREATMENT PLANT SUPERVISOR Work Phone: [facility] 01-27-2023 15:20-0400 Respiratory rate 18 /min Marilia Kristy ORDNANCE TECHNICIAN.WATER TREATMENT PLANT SUPERVISOR Work Phone: [facility] 01-27-2023 15:20-0400 SaO2% (BldA) [Mass fraction] 97 % Marilia Wagner ORDNANCE TECHNICIAN.WATER TREATMENT PLANT SUPERVISOR Work Phone: [facility] 01-27-2023 15:20-0400 Systolic blood pressure 130 mm[Hg] Marilia Kristy ORDNANCE TECHNICIAN.WATER TREATMENT PLANT SUPERVISOR Work Phone: [facility] 01-01-2023 18:31-0400 Body temperature 98.8 [degF] Dipika Mccabe ORDNANCE TECHNICIAN.WATER TREATMENT PLANT SUPERVISOR Work Phone: [facility] 01-01-2023 18:31-0400 Body weight 77.29 kg Dipika Mccabe ORDNANCE TECHNICIAN.WATER TREATMENT PLANT SUPERVISOR Work Phone: [facility] 01-01-2023 18:31-0400 Diastolic blood pressure 74 mm[Hg] Dipika Mccabe ORDNANCE TECHNICIAN.WATER TREATMENT PLANT SUPERVISOR Work Phone: [facility] 01-01-2023 18:31-0400 Heart rate 92 /min Dipika Mccabe ORDNANCE TECHNICIAN.WATER TREATMENT PLANT SUPERVISOR Work Phone: [facility] 01-01-2023 18:31-0400 Respiratory rate 20 /min Dipika Mccabe ORDNANCE TECHNICIAN.WATER TREATMENT PLANT SUPERVISOR Work Phone: [facility] 01-01-2023 18:31-0400 SaO2% (BldA) [Mass fraction] 97 % Dipika Mccabe ORDNANCE TECHNICIAN.WATER TREATMENT PLANT SUPERVISOR Work Phone: [facility] 01-01-2023 18:31-0400 Systolic blood pressure 136 mm[Hg] Dipika Mccabe ORDNANCE TECHNICIAN.WATER TREATMENT PLANT SUPERVISOR Work Phone: [facility] 12-22-2022 10:52-0400 Body weight 79.02 kg Chula Vo MD Work Phone: [facility] 12-22-2022 10:52-0400 Diastolic blood pressure 64 mm[Hg] Chula Vo MD Work Phone: [facility] 12-22-2022 10:52-0400 Heart rate 92 /min Chula Vo MD Work Phone: [facility] 12-22-2022 10:52-0400 Systolic blood pressure 142 mm[Hg] Chula Vo MD Work Phone: [facility] 12-08-2022 13:22-0500 Body weight 78.02 kg Rebecca Ricci MD Work Phone: [facility] 12-08-2022 13:22-0500 Diastolic blood pressure 78 mm[Hg] Rebecca Ricci MD Work Phone: [facility] 12-08-2022 13:22-0500 Systolic blood pressure 142 mm[Hg] Rebecca Ricci MD Work Phone: [facility] 11-23-2022 12:45-0500 Body height 167.6 cm Kyung Conroy PA-C Work Phone: [facility] 11-23-2022 12:45-0500 Body weight 80.74 kg Kyung Conroy PA-C Work Phone: [facility] 11-23-2022 12:45-0500 Respiratory rate 12 /min Kyung Conroy PA-C Work Phone: [facility] 11-03-2022 13:11-0500 Diastolic blood pressure 73 mm[Hg] Shalom Garza ORDNANCE TECHNICIAN.WATER TREATMENT PLANT SUPERVISOR Work Phone: [facility] 11-03-2022 13:11-0500 Heart rate 83 /min Shalom Garza ORDNANCE TECHNICIAN.WATER TREATMENT PLANT SUPERVISOR Work Phone: [facility] 11-03-2022 13:11-0500 Systolic blood pressure 141 mm[Hg] Shalom Garza ORDNANCE TECHNICIAN.WATER TREATMENT PLANT SUPERVISOR Work Phone: [facility] 11-02-2022 18:13-0500 Body height 167.6 cm Mario John MD Work Phone: [facility] 11-02-2022 18:13-0500 Body temperature 98.2 [degF] Mario John MD Work Phone: [facility] 11-02-2022 18:13-0500 Body weight 78.02 kg Mario John MD Work Phone: [facility] 11-02-2022 18:13-0500 Diastolic blood pressure 85 mm[Hg] Mario John MD Work Phone: [facility] 11-02-2022 18:13-0500 Heart rate 92 /min Mario John MD Work Phone: [facility] 11-02-2022 18:13-0500 Respiratory rate 16 /min Mario Jhon MD Work Phone: [facility] 11-02-2022 18:13-0500 SaO2% (BldA) [Mass fraction] 97 % Mario John MD Work Phone: [facility] 11-02-2022 18:13-0500 Systolic blood pressure 121 mm[Hg] Mario John MD Work Phone: [facility] 10-21-2022 14:49-0500 Diastolic blood pressure 80 mm[Hg] Anne Ramirez ORDNANCE TECHNICIAN.WATER TREATMENT PLANT SUPERVISOR Work Phone: [facility] 10-21-2022 14:49-0500 Systolic blood pressure 140 mm[Hg] Anne Ramirez ORDNANCE TECHNICIAN.WATER TREATMENT PLANT SUPERVISOR Work Phone: [facility] 10-21-2022 14:21-0500 Body height 167.6 cm Anne Rodolfo ORDNANCE TECHNICIAN.WATER TREATMENT PLANT SUPERVISOR Work Phone: [facility] 10-21-2022 14:21-0500 Body weight 78.47 kg Anne Bradyirma ORDNANCE TECHNICIAN.WATER TREATMENT PLANT SUPERVISOR Work Phone: [facility] 10-21-2022 14:21-0500 Heart rate 86 /min Anne Rodolfo ORDNANCE TECHNICIAN.WATER TREATMENT PLANT SUPERVISOR Work Phone: [facility] 09-15-2022 14:38-0500 Body weight 80.6 kg Sanam Frankfort ORDNANCE TECHNICIAN.WATER TREATMENT PLANT SUPERVISOR Work Phone: [facility] 09-15-2022 14:38-0500 Diastolic blood pressure 69 mm[Hg] Sanam Frankfort ORDNANCE TECHNICIAN.WATER TREATMENT PLANT SUPERVISOR Work Phone: [facility] 09-15-2022 14:38-0500 Heart rate 89 /min Sanam Frankfort ORDNANCE TECHNICIAN.WATER TREATMENT PLANT SUPERVISOR Work Phone: [facility] 09-15-2022 14:38-0500 Systolic blood pressure 156 mm[Hg] Sanam Frankfort ORDNANCE TECHNICIAN.WATER TREATMENT PLANT SUPERVISOR Work Phone: [facility] 09-02-2022 13:54-0500 Body height 162.6 cm Ritika Decker MD Work Phone: [facility] 09-02-2022 13:54-0500 Heart rate 76 /min Ritika Decker MD Work Phone: [facility] 09-02-2022 13:54-0500 SaO2% (BldA) [Mass fraction] 99 % Ritika Decker MD Work Phone: [facility] 07-27-2022 18:03-0400 Body height 162.6 cm Mario John MD Work Phone: [facility] 07-27-2022 18:03-0400 Body temperature 97.81 [degF] Mario John MD Work Phone: [facility] 07-27-2022 18:03-0400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 patient preferences/comfort of risks. She wishes to continue estrogen alone for now. She may be open to the idea of patch. If the estrogen levels are quite high, may want to consider switching over to see if she does well with transdermal formulation instead. Discussed continuing to increase to highest levels of estrogen would not be appropriate to offset her concerns about hirsutism, and other treatments are available. She will follow-up on this with both endocrinology and dermatology. Office Visit on 01/07/22 ESTRADIOL BY TMS Rebecca Ricci MD Call if any discussed symptoms not better or worse. Note dictated using voice recognition software. documented in this encounter [facility] 01-07-2022 Instructions Rebecca Ricci MD - 01/07/2022 4:20 PM EDT Images from the original note were not included. Rebecca Ricci MD, [facility] Optimization Consultant of automotive service assistant & Reproductive Biology Forestry Conservation Worker & Women's Health [place] Dept of Subspecialty Women's Health Primary office numbers (at [facility], for general questions, all paperwork requests, etc): General questions ; scheduling appointments (please avoid faxing items to [place] office) Alternative contact numbers: Greg Forestry Conservation Worker: The general scheduling line for all [employer] departments (after hours times available): [phone] I see patients in the following locations: Tuesdays, [facility] Wednesdays & , [facility] Mondays and Fridays: Add-on virtual visits only Getting an appointment when you need it: Calling the office offers the most options for appointments with me which can be virtual (video visit) or in person on a Wednesday, Wednesday, or . If needing an earlier appointment from what is offered, I can add you to my schedule if you send me a [employer] message. Since MyChart messages go to our nursing teams first, it's helpful if you write something like Per our conversation, you mentioned you can add me in for a virtual visit, here are some dates/times in the next few weeks that work for me . It is important to include in your message multiple date/time windows that works for you in the upcoming several weeks, given flexibility in my schedule will vary. Using this phrasing will help prevent delays in getting the message to me. Times I can add patients into the schedule include: Mondays, (virtual only) Tuesdays 3 or 3:30 PM, (virtual or [place] office) Wednesdays 3:30 (virtual or Main [place] A10) before 11:30 or between 2:30-3:30, afternoon preferred ([facility] or [facility] A81) Fridays, (virtual only) For more routine gynecologic concerns (bleeding, vaginal infections, etc), we work with an amazing group of doctors and nurse practitioners who help each other out, not to mention the [facility] Express Care visits that are available online or at walk-in clinics throughout [facility]. This usually works out great, but just in case you don't get a timely response from me, please don't hesitate to be persistent! Occasionally we may have nurses and schedulers helping out temporarily in our office, causing some delays in getting the message to me. Hearing back about test results : I do not believe in the practice of no news is good news. You should always expect to receive results from our office no later than 2 weeks from when all of the tests have resulted. If you are having your testing done at an outside lab, please ensure that they have my correct fax number to send the results to: . Thank you for allowing me to participate in your care! - Weight loss resources 2 [employer] books: Always hungry? By Jalen Alonso M.D., PhD And Obesity code; unlocking the secrets of weight loss. By Dilan Umana MD Few [employer] podcasts: The weight loss ones are relevant to many issues such as reliance on food/alcohol/drugs, etc. since the concepts they teach are interchangeable. If you don't have a smartphone or ipod, you can listen directly on the internet. One of my favorites is called weight loss for busy physicians by Eryn Aviles. Start listening to the podcast for free starting from episode #1 for it to make sense. I also like primal potential . It goes into all aspects of nutrition and maintaining ideal weight, both physical and emotional. Start with the earlier episodes, but later episodes have a lot of sponsored products. The child life assistant school by Grace Duenas, who is the head athletic trainer/strength coach that helps train many of the child life assistant across the . Her podcast are excellent, but they go into a variety of topics including managing stress, weight loss, finances, getting where you want with your job, etc. Phit-N-Phat (also called losing 100 pounds with Mirella). No nonsense, straight shooting, plenty of curse words-great content. Different approach: Brain over binge Specialists that run weight management visits: Natalya Marin MD, ([facility], ) Viktoria Argueta MD (focused more on women with polycystic ovaries, PCOS) Bear Abdi MD- [facility], Adwoa Dunaway MD, [place], Dr. Maya Lomeli, [facility] Building, Helpful website with free joanna (not sure when will be fully available for free): [email or web address] documented in this encounter [facility] 10-14-2021 Miscellaneous Notes Spoke to pt. Relayed message. She states she is most likely going to go to an express care. I don't see any sooner appts. She could see if she can get in to see someone at a different office or go to express care. Thanks, Mario John MD Spoke with patient. Patient wants an appointment with Dr. Alvaro LOREDO for painful redness on face. Scheduled patient for 10/22/2021. Patient was wondering if she could be seen sooner? Please advise. Thank you. Charmaine Mcgowan documented in this encounter [facility] documented as of this encounter (statuses as of 01/08/2022) [facility] History of Past illness Narrative* Problem Noted Date Resolved Date Foot arch pain 03/03/2018 04/02/2018 Type 2 diabetes mellitus wit hout complication, without long-term current use of insulin 09/22/2016 04/02/2018 Chronic sinusitis 09/18/2015 04/02/2018 Contusion of unspecified part of upper limb 08/1304/02/2018 Rhinitis 12/26/2010 04/02/2018 Acute sinusitis, unspecified 11/21/2010 Atypical facial pain 12/20/2009 12/21/2012 Unspecified hypothyroidism 08/14/200304/02 Type II or unspecified type diabetes mellitus without mention of complication, not stated as uncontrolled 08/14/2003 documented as of this encounter (statuses as of 02/03/2022) [facility] History of Past illness Narrative* Problem Noted Date Resolved Date Foot arch pain 03/03/2018 04/02/2018 Type 2 diabetes mellitus wit hout complication, without long-term current use of insulin 09/22/2016 04/02/2018 Chronic sinusitis 09/18/2015 04/02/2018 Contusion of unspecified part of upper limb 08/1304/02/2018 Rhinitis 12/26/2010 04/02/2018 Acute sinusitis, unspecified 11/21/2010 Atypical facial pain 12/20/2009 12/21/2012 Unspecified hypothyroidism 08/14/200304/02 Type II or unspecified type diabetes mellitus without mention of complication, not stated as uncontrolled 08/14/2003 documented as of this encounter (statuses as of 02/05/2022) [facility] History of Past illness Narrative* Problem Noted Date Resolved Date Foot arch pain 03/03/2018 04/02/2018 Type 2 diabetes mellitus wit hout complication, without long-term current use of insulin 09/22/2016 04/02/2018 Chronic sinusitis 09/18/2015 04/02/2018 Contusion of unspecified part of upper limb 08/1304/02/2018 Rhinitis 12/26/2010 04/02/2018 Acute sinusitis, unspecified 11/21/2010 Atypical facial pain 12/20/2009 12/21/2012 Unspecified hypothyroidism 08/14/200304/02 Type II or unspecified type diabetes mellitus without mention of complication, not stated as uncontrolled 08/14/2003 documented as of this encounter (statuses as of 02/06/2022) [facility] History of Past illness Narrative* Problem Noted Date Resolved Date Foot arch pain 03/03/2018 04/02/2018 Type 2 diabetes mellitus wit hout complication, without long-term current use of insulin 09/22/2016 04/02/2018 Chronic sinusitis 09/18/2015 04/02/2018 Contusion of unspecified part of upper limb 08/1304/02/2018 Rhinitis 12/26/2010 04/02/2018 Acute sinusitis, unspecified 11/21/2010 Atypical facial pain 12/20/2009 12/21/2012 Unspecified hypothyroidism 08/14/200304/02 Type II or unspecified type diabetes mellitus without mention of complication, not stated as uncontrolled 08/14/2003 documented as of this encounter (statuses as of 02/17/2022) [facility] History of Past illness Narrative* Problem Noted Date Resolved Date Foot arch pain 03/03/2018 04/02/2018 Type 2 diabetes mellitus wit hout complication, without long-term current use of insulin 09/22/2016 04/02/2018 Chronic sinusitis 09/18/2015 04/02/2018 Contusion of unspecified part of upper limb 08/1304/02/2018 Rhinitis 12/26/2010 04/02/2018 Acute sinusitis, unspecified 11/21/2010 Atypical facial pain 12/20/2009 12/21/2012 Unspecified hypothyroidism 08/14/200304/02 Type II or unspecified type diabetes mellitus without mention of complication, not stated as uncontrolled 08/14/2003 documented as of this encounter (statuses as of 02/25/2022) [facility] History of Past illness Narrative* Problem Noted Date Resolved Date Foot arch pain 03/03/2018 04/02/2018 Type 2 diabetes mellitus wit hout complication, without long-term current use of insulin 09/22/2016 04/02/2018 Chronic sinusitis 09/18/2015 04/02/2018 Contusion of unspecified part of upper limb 08/1304/02/2018 Rhinitis 12/26/2010 04/02/2018 Acute sinusitis, unspecified 11/21/2010 Atypical facial pain 12/20/2009 12/21/2012 Unspecified hypothyroidism 08/14/200304/02 Type II or unspecified type diabetes mellitus without mention of complication, not stated as uncontrolled 08/14/2003 documented as of this encounter (statuses as of 02/25/2022) [facility] History of Past illness Narrative* Problem Noted Date Resolved Date Foot arch pain 03/03/2018 04/02/2018 Type 2 diabetes mellitus wit hout complication, without long-term current use of insulin 09/22/2016 04/02/2018 Chronic sinusitis 09/18/2015 04/02/2018 Contusion of unspecified part of upper limb 08/1304/02/2018 Rhinitis 12/26/2010 04/02/2018 Acute sinusitis, unspecified 11/21/2010 Atypical facial pain 12/20/2009 12/21/2012 Unspecified hypothyroidism 08/14/200304/02 Type II or unspecified type diabetes mellitus without mention of complication, not stated as uncontrolled 08/14/2003 documented as of this encounter (statuses as of 02/26/2022) [facility] History of Past illness Narrative* Problem Noted Date Resolved Date Foot arch pain 03/03/2018 04/02/2018 Type 2 diabetes mellitus wit hout complication, without long-term current use of insulin 09/22/2016 04/02/2018 Chronic sinusitis 09/18/2015 04/02/2018 Contusion of unspecified part of upper limb 08/1304/02/2018 Rhinitis 12/26/2010 04/02/2018 Acute sinusitis, unspecified 11/21/2010 Atypical facial pain 12/20/2009 12/21/2012 Unspecified hypothyroidism 08/14/200304/02 Type II or unspecified type diabetes mellitus without mention of complication, not stated as uncontrolled 08/14/2003 documented as of this encounter (statuses as of 03/01/2022) [facility] History of Past illness Narrative* Problem Noted Date Resolved Date Foot arch pain 03/03/2018 04/02/2018 Type 2 diabetes mellitus wit hout complication, without long-term current use of insulin 09/22/2016 04/02/2018 Chronic sinusitis 09/18/2015 04/02/2018 Contusion of unspecified part of upper limb 08/1304/02/2018 Rhinitis 12/26/2010 04/02/2018 Acute sinusitis, unspecified 11/21/2010 Atypical facial pain 12/20/2009 12/21/2012 Unspecified hypothyroidism 08/14/200304/02 Type II or unspecified type diabetes mellitus without mention of complication, not stated as uncontrolled 08/14/2003 documented as of this encounter (statuses as of 03/04/2022) [facility] History of Past illness Narrative* Problem Noted Date Resolved Date Foot arch pain 03/03/2018 04/02/2018 Type 2 diabetes mellitus wit hout complication, without long-term current use of insulin 09/22/2016 04/02/2018 Chronic sinusitis 09/18/2015 04/02/2018 Contusion of unspecified part of upper limb 08/1304/02/2018 Rhinitis 12/26/2010 04/02/2018 Acute sinusitis, unspecified 11/21/2010 Atypical facial pain 12/20/2009 12/21/2012 Unspecified hypothyroidism 08/14/200304/02 Type II or unspecified type diabetes mellitus without mention of complication, not stated as uncontrolled 08/14/2003 documented as of this encounter (statuses as of 03/04/2022) [facility] History of Past illness Narrative* Problem Noted Date Resolved Date Foot arch pain 03/03/2018 04/02/2018 Type 2 diabetes mellitus wit hout complication, without long-term current use of insulin 09/22/2016 04/02/2018 Chronic sinusitis 09/18/2015 04/02/2018 Contusion of unspecified part of upper limb 08/1304/02/2018 Rhinitis 12/26/2010 04/02/2018 Acute sinusitis, unspecified 11/21/2010 Atypical facial pain 12/20/2009 12/21/2012 Unspecified hypothyroidism 08/14/200304/02 Type II or unspecified type diabetes mellitus without mention of complication, not stated as uncontrolled 08/14/2003 documented as of this encounter (statuses as of 03/10/2022) [facility] of Past illness Narrative* Problem Noted Date Resolved Date Foot arch pain 03/03/2018 04/02/2018 Type 2 diabetes mellitus wit hout complication, without long-term current use of insulin 09/22/2016 04/02/2018 Chronic sinusitis 09/18/2015 04/02/2018 Contusion of unspecified part of upper limb 08/1304/02/2018 Rhinitis 12/26/2010 04/02/2018 Acute sinusitis, unspecified 11/21/2010 Atypical facial pain 12/20/2009 12/21/2012 Unspecified hypothyroidism 08/14/200304/02 Type II or unspecified type diabetes mellitus without mention of complication, not stated as uncontrolled 08/14/2003 documented as of this encounter (statuses as of 03/12/2022) [facility]2018 History of Past illness Narrative* Problem Noted Date Resolved Date Foot arch pain 03/03/2018 04/02/2018 Type 2 diabetes mellitus wit hout complication, without long-term current use of insulin 09/22/2016 04/02/2018 Chronic sinusitis 09/18/2015 04/02/2018 Contusion of unspecified part of upper limb 08/1304/02/2018 Rhinitis 12/26/2010 04/02/2018 Acute sinusitis, unspecified 11/21/2010 Atypical facial pain 12/20/2009 12/21/2012 Unspecified hypothyroidism 08/14/200304/02 Type II or unspecified type diabetes mellitus without mention of complication, not stated as uncontrolled 08/14/2003 documented as of this encounter (statuses as of 03/16/2022) [facility]2018 History of Past illness Narrative* Problem Noted Date Resolved Date Foot arch pain 03/03/2018 04/02/2018 Type 2 diabetes mellitus wit hout complication, without long-term current use of insulin 09/22/2016 04/02/2018 Chronic sinusitis 09/18/2015 04/02/2018 Contusion of unspecified part of upper limb 08/1304/02/2018 Rhinitis 12/26/2010 04/02/2018 Acute sinusitis, unspecified 11/21/2010 Atypical facial pain 12/20/2009 12/21/2012 Unspecified hypothyroidism 08/14/200304/02 Type II or unspecified type diabetes mellitus without mention of complication, not stated as uncontrolled 08/14/2003 documented as of this encounter (statuses as of 03/24/2022) [facility]2018 History of Past illness Narrative* Problem Noted Date Resolved Date Foot arch pain 03/03/2018 04/02/2018 Type 2 diabetes mellitus wit hout complication, without long-term current use of insulin 09/22/2016 04/02/2018 Chronic sinusitis 09/18/2015 04/02/2018 Contusion of unspecified part of upper limb 08/1304/02/2018 Rhinitis 12/26/2010 04/02/2018 Acute sinusitis, unspecified 11/21/2010 Atypical facial pain 12/20/2009 12/21/2012 Unspecified hypothyroidism 08/14/200304/02 Type II or unspecified type diabetes mellitus without mention of complication, not stated as uncontrolled 08/14/2003 documented as of this encounter (statuses as of 04/07/2022) [facility]2018 History of Past illness Narrative* Problem Noted Date Resolved Date Foot arch pain 03/03/2018 04/02/2018 Type 2 diabetes mellitus wit hout complication, without long-term current use of insulin 09/22/2016 04/02/2018 Chronic sinusitis 09/18/2015 04/02/2018 Contusion of unspecified part of upper limb 08/1304/02/2018 Rhinitis 12/26/2010 04/02/2018 Acute sinusitis, unspecified 11/21/2010 Atypical facial pain 12/20/2009 12/21/2012 Unspecified hypothyroidism 08/14/200304/02 Type II or unspecified type diabetes mellitus without mention of complication, not stated as uncontrolled 08/14/2003 documented as of this encounter (statuses as of 04/17/2022) [address]24-2018 History of Past illness Narrative* Problem Noted Date Resolved Date Foot arch pain 03/03/2018 04/02/2018 Type 2 diabetes mellitus wit hout complication, without long-term current use of insulin 09/22/2016 04/02/2018 Chronic sinusitis 09/18/2015 04/02/2018 Contusion of unspecified part of upper limb 08/1304/02/2018 Rhinitis 12/26/2010 04/02/2018 Acute sinusitis, unspecified 11/21/2010 Atypical facial pain 12/20/2009 12/21/2012 Unspecified hypothyroidism 08/14/200304/02 Type II or unspecified type diabetes mellitus without mention of complication, not stated as uncontrolled 08/14/2003 documented as of this encounter (statuses as of 04/20/2022) [facility]2018 History of Past illness Narrative* Problem Noted Date Resolved Date Foot arch pain 03/03/2018 04/02/2018 Type 2 diabetes mellitus wit hout complication, without long-term current use of insulin 09/22/2016 04/02/2018 Chronic sinusitis 09/18/2015 04/02/2018 Contusion of unspecified part of upper limb 08/1304/02/2018 Rhinitis 12/26/2010 04/02/2018 Acute sinusitis, unspecified 11/21/2010 Atypical facial pain 12/20/2009 12/21/2012 Unspecified hypothyroidism 08/14/200304/02 Type II or unspecified type diabetes mellitus without mention of complication, not stated as uncontrolled 08/14/2003 documented as of this encounter (statuses as of 04/28/2022) [facility]2018 History of Past illness Narrative* Problem Noted Date Resolved Date Foot arch pain 03/03/2018 04/02/2018 Type 2 diabetes mellitus wit hout complication, without long-term current use of insulin 09/22/2016 04/02/2018 Chronic sinusitis 09/18/2015 04/02/2018 Contusion of unspecified part of upper limb 08/1304/02/2018 Rhinitis 12/26/2010 04/02/2018 Acute sinusitis, unspecified 11/21/2010 Atypical facial pain 12/20/2009 12/21/2012 Unspecified hypothyroidism 08/14/200304/02 Type II or unspecified type diabetes mellitus without mention of complication, not stated as uncontrolled 08/14/2003 documented as of this encounter (statuses as of 04/28/2022) [facility]2018 History of Past illness Narrative* Problem Noted Date Resolved Date Foot arch pain 03/03/2018 04/02/2018 Type 2 diabetes mellitus wit hout complication, without long-term current use of insulin 09/22/2016 04/02/2018 Chronic sinusitis 09/18/2015 04/02/2018 Contusion of unspecified part of upper limb 08/1304/02/2018 Rhinitis 12/26/2010 04/02/2018 Acute sinusitis, unspecified 11/21/2010 Atypical facial pain 12/20/2009 12/21/2012 Unspecified hypothyroidism 08/14/200304/02 Type II or unspecified type diabetes mellitus without mention of complication, not stated as uncontrolled 08/14/2003 documented as of this encounter (statuses as of 05/01/2022) [address]24-2018 History of Past illness Narrative* Problem Noted Date Resolved Date Foot arch pain 03/03/2018 04/02/2018 Type 2 diabetes mellitus wit hout complication, without long-term current use of insulin 09/22/2016 04/02/2018 Chronic sinusitis 09/18/2015 04/02/2018 Contusion of unspecified part of upper limb 08/1304/02/2018 Rhinitis 12/26/2010 04/02/2018 Acute sinusitis, unspecified 11/21/2010 Atypical facial pain 12/20/2009 12/21/2012 Unspecified hypothyroidism 08/14/200304/02 Type II or unspecified type diabetes mellitus without mention of complication, not stated as uncontrolled 08/14/2003 documented as of this encounter (statuses as of 05/01/2022) [facility]2018 History of Past illness Narrative* Problem Noted Date Resolved Date Foot arch pain 03/03/2018 04/02/2018 Type 2 diabetes mellitus wit hout complication, without long-term current use of insulin 09/22/2016 04/02/2018 Chronic sinusitis 09/18/2015 04/02/2018 Contusion of unspecified part of upper limb 08/1304/02/2018 Rhinitis 12/26/2010 04/02/2018 Acute sinusitis, unspecified 11/21/2010 Atypical facial pain 12/20/2009 12/21/2012 Unspecified hypothyroidism 08/14/200304/02 Type II or unspecified type diabetes mellitus without mention of complication, not stated as uncontrolled 08/14/2003 documented as of this encounter (statuses as of 05/01/2022) [facility]2018 History of Past illness Narrative* Problem Noted Date Resolved Date Foot arch pain 03/03/2018 04/02/2018 Type 2 diabetes mellitus wit hout complication, without long-term current use of insulin 09/22/2016 04/02/2018 Chronic sinusitis 09/18/2015 04/02/2018 Contusion of unspecified part of upper limb 08/1304/02/2018 Rhinitis 12/26/2010 04/02/2018 Acute sinusitis, unspecified 11/21/2010 Atypical facial pain 12/20/2009 12/21/2012 Unspecified hypothyroidism 08/14/200304/02 Type II or unspecified type diabetes mellitus without mention of complication, not stated as uncontrolled 08/14/2003 documented as of this encounter (statuses as of 05/01/2022) [facility]2018 History of Past illness Narrative* Problem Noted Date Resolved Date Foot arch pain 03/03/2018 04/02/2018 Type 2 diabetes mellitus wit hout complication, without long-term current use of insulin 09/22/2016 04/02/2018 Chronic sinusitis 09/18/2015 04/02/2018 Contusion of unspecified part of upper limb 08/1304/02/2018 Rhinitis 12/26/2010 04/02/2018 Acute sinusitis, unspecified 11/21/2010 Atypical facial pain 12/20/2009 12/21/2012 Unspecified hypothyroidism 08/14/200304/02 Type II or unspecified type diabetes mellitus without mention of complication, not stated as uncontrolled 08/14/2003 documented as of this encounter (statuses as of 05/19/2022) [facility]2018 History of Past illness Narrative* Problem Noted Date Resolved Date Foot arch pain 03/03/2018 04/02/2018 Type 2 diabetes mellitus wit hout complication, without long-term current use of insulin 09/22/2016 04/02/2018 Chronic sinusitis 09/18/2015 04/02/2018 Contusion of unspecified part of upper limb 08/1304/02/2018 Rhinitis 12/26/2010 04/02/2018 Acute sinusitis, unspecified 11/21/2010 Atypical facial pain 12/20/2009 12/21/2012 Unspecified hypothyroidism 08/14/200304/02 Type II or unspecified type diabetes mellitus without mention of complication, not stated as uncontrolled 08/14/2003 documented as of this encounter (statuses as of 05/20/2022) [facility]2018 History of Past illness Narrative* Problem Noted Date Resolved Date Foot arch pain 03/03/2018 04/02/2018 Type 2 diabetes mellitus wit hout complication, without long-term current use of insulin 09/22/2016 04/02/2018 Chronic sinusitis 09/18/2015 04/02/2018 Contusion of unspecified part of upper limb 08/1304/02/2018 Rhinitis 12/26/2010 04/02/2018 Acute sinusitis, unspecified 11/21/2010 Atypical facial pain 12/20/2009 12/21/2012 Unspecified hypothyroidism 08/14/200304/02 Type II or unspecified type diabetes mellitus without mention of complication, not stated as uncontrolled 08/14/2003 documented as of this encounter (statuses as of 05/26/2022) [place] [id number] History of Past illness Narrative* Problem Noted Date Resolved Date Foot arch pain 03/03/2018 04/02/2018 Type 2 diabetes mellitus wit hout complication, without long-term current use of insulin 09/22/2016 04/02/2018 Chronic sinusitis 09/18/2015 04/02/2018 Contusion of unspecified part of upper limb 08/1304/02/2018 Rhinitis 12/26/2010 04/02/2018 Acute sinusitis, unspecified 11/21/2010 Atypical facial pain 12/20/2009 12/21/2012 Unspecified hypothyroidism 08/14/200304/02 Type II or unspecified type diabetes mellitus without mention of complication, not stated as uncontrolled 08/14/2003 documented as of this encounter (statuses as of 05/29/2022) [address]24-2018 History of Past illness Narrative* Problem Noted Date Resolved Date Foot arch pain 03/03/2018 04/02/2018 Type 2 diabetes mellitus wit hout complication, without long-term current use of insulin 09/22/2016 04/02/2018 Chronic sinusitis 09/18/2015 04/02/2018 Contusion of unspecified part of upper limb 08/1304/02/2018 Rhinitis 12/26/2010 04/02/2018 Acute sinusitis, unspecified 11/21/2010 Atypical facial pain 12/20/2009 12/21/2012 Unspecified hypothyroidism 08/14/200304/02 Type II or unspecified type diabetes mellitus without mention of complication, not stated as uncontrolled 08/14/2003 documented as of this encounter (statuses as of 06/11/2022) [facility]2018 History of Past illness Narrative* Problem Noted Date Resolved Date Foot arch pain 03/03/2018 04/02/2018 Type 2 diabetes mellitus wit hout complication, without long-term current use of insulin 09/22/2016 04/02/2018 Chronic sinusitis 09/18/2015 04/02/2018 Contusion of unspecified part of upper limb 08/1304/02/2018 Rhinitis 12/26/2010 04/02/2018 Acute sinusitis, unspecified 11/21/2010 Atypical facial pain 12/20/2009 12/21/2012 Unspecified hypothyroidism 08/14/200304/02 Type II or unspecified type diabetes mellitus without mention of complication, not stated as uncontrolled 08/14/2003 documented as of this encounter (statuses as of 06/23/2022) [facility]2018 History of Past illness Narrative* Problem Noted Date Resolved Date Foot arch pain 03/03/2018 04/02/2018 Type 2 diabetes mellitus wit hout complication, without long-term current use of insulin 09/22/2016 04/02/2018 Chronic sinusitis 09/18/2015 04/02/2018 Contusion of unspecified part of upper limb 08/1304/02/2018 Rhinitis 12/26/2010 04/02/2018 Acute sinusitis, unspecified 11/21/2010 Atypical facial pain 12/20/2009 12/21/2012 Unspecified hypothyroidism 08/14/200304/02 Type II or unspecified type diabetes mellitus without mention of complication, not stated as uncontrolled 08/14/2003 documented as of this encounter (statuses as of 06/23/2022) [facility]2018 History of Past illness Narrative* Problem Noted Date Resolved Date Foot arch pain 03/03/2018 04/02/2018 Type 2 diabetes mellitus wit hout complication, without long-term current use of insulin 09/22/2016 04/02/2018 Chronic sinusitis 09/18/2015 04/02/2018 Contusion of unspecified part of upper limb 08/1304/02/2018 Rhinitis 12/26/2010 04/02/2018 Acute sinusitis, unspecified 11/21/2010 Atypical facial pain 12/20/2009 12/21/2012 Unspecified hypothyroidism 08/14/200304/02 Type II or unspecified type diabetes mellitus without mention of complication, not stated as uncontrolled 08/14/2003 documented as of this encounter (statuses as of 06/30/2022) [facility]2018 History of Past illness Narrative* Problem Noted Date Resolved Date Foot arch pain 03/03/2018 04/02/2018 Type 2 diabetes mellitus wit hout complication, without long-term current use of insulin 09/22/2016 04/02/2018 Chronic sinusitis 09/18/2015 04/02/2018 Contusion of unspecified part of upper limb 08/1304/02/2018 Rhinitis 12/26/2010 04/02/2018 Acute sinusitis, unspecified 11/21/2010 Atypical facial pain 12/20/2009 12/21/2012 Unspecified hypothyroidism 08/14/200304/02 Type II or unspecified type diabetes mellitus without mention of complication, not stated as uncontrolled 08/14/2003 documented as of this encounter (statuses as of 07/21/2022) [facility]2018 History of Past illness Narrative* Problem Noted Date Resolved Date Foot arch pain 03/03/2018 04/02/2018 Type 2 diabetes mellitus wit hout complication, without long-term current use of insulin 09/22/2016 04/02/2018 Chronic sinusitis 09/18/2015 04/02/2018 Contusion of unspecified part of upper limb 08/1304/02/2018 Rhinitis 12/26/2010 04/02/2018 Acute sinusitis, unspecified 11/21/2010 Atypical facial pain 12/20/2009 12/21/2012 Unspecified hypothyroidism 08/14/200304/02 Type II or unspecified type diabetes mellitus without mention of complication, not stated as uncontrolled 08/14/2003 documented as of this encounter (statuses as of 07/30/2022) [facility]2018 History of Past illness Narrative* Problem Noted Date Resolved Date Foot arch pain 03/03/2018 04/02/2018 Type 2 diabetes mellitus wit hout complication, without long-term current use of insulin 09/22/2016 04/02/2018 Chronic sinusitis 09/18/2015 04/02/2018 Contusion of unspecified part of upper limb 08/1304/02/2018 Rhinitis 12/26/2010 04/02/2018 Acute sinusitis, unspecified 11/21/2010 Atypical facial pain 12/20/2009 12/21/2012 Unspecified hypothyroidism 08/14/200304/02 Type II or unspecified type diabetes mellitus without mention of complication, not stated as uncontrolled 08/14/2003 documented as of this encounter (statuses as of 07/28/2022) [facility]2018 History of Past illness Narrative* Problem Noted Date Resolved Date Foot arch pain 03/03/2018 04/02/2018 Type 2 diabetes mellitus wit hout complication, without long-term current use of insulin 09/22/2016 04/02/2018 Chronic sinusitis 09/18/2015 04/02/2018 Contusion of unspecified part of upper limb 08/1304/02/2018 Rhinitis 12/26/2010 04/02/2018 Acute sinusitis, unspecified 11/21/2010 Atypical facial pain 12/20/2009 12/21/2012 Unspecified hypothyroidism 08/14/200304/02 Type II or unspecified type diabetes mellitus without mention of complication, not stated as uncontrolled 08/14/2003 documented as of this encounter (statuses as of 08/07/2022) [facility]2018 History of Past illness Narrative* Problem Noted Date Resolved Date Foot arch pain 03/03/2018 04/02/2018 Type 2 diabetes mellitus wit hout complication, without long-term current use of insulin 09/22/2016 04/02/2018 Chronic sinusitis 09/18/2015 04/02/2018 Contusion of unspecified part of upper limb 08/1304/02/2018 Rhinitis 12/26/2010 04/02/2018 Acute sinusitis, unspecified 11/21/2010 Atypical facial pain 12/20/2009 12/21/2012 Unspecified hypothyroidism 08/14/200304/02 Type II or unspecified type diabetes mellitus without mention of complication, not stated as uncontrolled 08/14/2003 documented as of this encounter (statuses as of 08/26/2022) [facility]2018 History of Past illness Narrative* Problem Noted Date Resolved Date Foot arch pain 03/03/2018 04/02/2018 Type 2 diabetes mellitus wit hout complication, without long-term current use of insulin 09/22/2016 04/02/2018 Chronic sinusitis 09/18/2015 04/02/2018 Contusion of unspecified part of upper limb 08/1304/02/2018 Rhinitis 12/26/2010 04/02/2018 Acute sinusitis, unspecified 11/21/2010 Atypical facial pain 12/20/2009 12/21/2012 Unspecified hypothyroidism 08/14/200304/02 Type II or unspecified type diabetes mellitus without mention of complication, not stated as uncontrolled 08/14/2003 documented as of this encounter (statuses as of 08/28/2022) [facility] History of Past illness Narrative* Problem Noted Date Resolved Date Foot arch pain 03/03/2018 04/02/2018 Type 2 diabetes mellitus wit hout complication, without long-term current use of insulin 09/22/2016 04/02/2018 Chronic sinusitis 09/18/2015 04/02/2018 Contusion of unspecified part of upper limb 08/1304/02/2018 Rhinitis 12/26/2010 04/02/2018 Acute sinusitis, unspecified 11/21/2010 Atypical facial pain 12/20/2009 12/21/2012 Unspecified hypothyroidism 08/14/200304/02 Type II or unspecified type diabetes mellitus without mention of complication, not stated as uncontrolled 08/14/2003 documented as of this encounter (statuses as of 09/02/2022) [facility] History of Past illness Narrative* Problem Noted Date Resolved Date Foot arch pain 03/03/2018 04/02/2018 Type 2 diabetes mellitus wit hout complication, without long-term current use of insulin 09/22/2016 04/02/2018 Chronic sinusitis 09/18/2015 04/02/2018 Contusion of unspecified part of upper limb 08/1304/02/2018 Rhinitis 12/26/2010 04/02/2018 Acute sinusitis, unspecified 11/21/2010 Atypical facial pain 12/20/2009 12/21/2012 Unspecified hypothyroidism 08/14/200304/02 Type II or unspecified type diabetes mellitus without mention of complication, not stated as uncontrolled 08/14/2003 documented as of this encounter (statuses as of 09/10/2022) [facility] History of Past illness Narrative* Problem Noted Date Resolved Date Foot arch pain 03/03/2018 04/02/2018 Type 2 diabetes mellitus wit hout complication, without long-term current use of insulin 09/22/2016 04/02/2018 Chronic sinusitis 09/18/2015 04/02/2018 Contusion of unspecified part of upper limb 08/1304/02/2018 Rhinitis 12/26/2010 04/02/2018 Acute sinusitis, unspecified 11/21/2010 Atypical facial pain 12/20/2009 12/21/2012 Unspecified hypothyroidism 08/14/200304/02 Type II or unspecified type diabetes mellitus without mention of complication, not stated as uncontrolled 08/14/2003 documented as of this encounter (statuses as of 09/15/2022) [facility]2018 History of Past illness Narrative* Problem Noted Date Resolved Date Foot arch pain 03/03/2018 04/02/2018 Type 2 diabetes mellitus wit hout complication, without long-term current use of insulin 09/22/2016 04/02/2018 Chronic sinusitis 09/18/2015 04/02/2018 Contusion of unspecified part of upper limb 08/1304/02/2018 Rhinitis 12/26/2010 04/02/2018 Acute sinusitis, unspecified 11/21/2010 Atypical facial pain 12/20/2009 12/21/2012 Unspecified hypothyroidism 08/14/200304/02 Type II or unspecified type diabetes mellitus without mention of complication, not stated as uncontrolled 08/14/2003 documented as of this encounter (statuses as of 09/16/2022) [facility] History of Past illness Narrative* Problem Noted Date Resolved Date Foot arch pain 03/03/2018 04/02/2018 Type 2 diabetes mellitus wit hout complication, without long-term current use of insulin 09/22/2016 04/02/2018 Chronic sinusitis 09/18/2015 04/02/2018 Contusion of unspecified part of upper limb 08/1304/02/2018 Rhinitis 12/26/2010 04/02/2018 Acute sinusitis, unspecified 11/21/2010 Atypical facial pain 12/20/2009 12/21/2012 Unspecified hypothyroidism 08/14/200304/02 Type II or unspecified type diabetes mellitus without mention of complication, not stated as uncontrolled 08/14/2003 documented as of this encounter (statuses as of 09/16/2022) [facility]2018 History of Past illness Narrative* Problem Noted Date Resolved Date Foot arch pain 03/03/2018 04/02/2018 Type 2 diabetes mellitus wit hout complication, without long-term current use of insulin 09/22/2016 04/02/2018 Chronic sinusitis 09/18/2015 04/02/2018 Contusion of unspecified part of upper limb 08/1304/02/2018 Rhinitis 12/26/2010 04/02/2018 Acute sinusitis, unspecified 11/21/2010 Atypical facial pain 12/20/2009 12/21/2012 Unspecified hypothyroidism 08/14/200304/02 Type II or unspecified type diabetes mellitus without mention of complication, not stated as uncontrolled 08/14/2003 documented as of this encounter (statuses as of 09/18/2022) [facility]2018 History of Past illness Narrative* Problem Noted Date Resolved Date Foot arch pain 03/03/2018 04/02/2018 Type 2 diabetes mellitus wit hout complication, without long-term current use of insulin 09/22/2016 04/02/2018 Chronic sinusitis 09/18/2015 04/02/2018 Contusion of unspecified part of upper limb 08/1304/02/2018 Rhinitis 12/26/2010 04/02/2018 Acute sinusitis, unspecified 11/21/2010 Atypical facial pain 12/20/2009 12/21/2012 Unspecified hypothyroidism 08/14/200304/02 Type II or unspecified type diabetes mellitus without mention of complication, not stated as uncontrolled 08/14/2003 documented as of this encounter (statuses as of 09/28/2022) [facility]2018 History of Past illness Narrative* Problem Noted Date Resolved Date Foot arch pain 03/03/2018 04/02/2018 Type 2 diabetes mellitus wit hout complication, without long-term current use of insulin 09/22/2016 04/02/2018 Chronic sinusitis 09/18/2015 04/02/2018 Contusion of unspecified part of upper limb 08/1304/02/2018 Rhinitis 12/26/2010 04/02/2018 Acute sinusitis, unspecified 11/21/2010 Atypical facial pain 12/20/2009 12/21/2012 Unspecified hypothyroidism 08/14/200304/02 Type II or unspecified type diabetes mellitus without mention of complication, not stated as uncontrolled 08/14/2003 documented as of this encounter (statuses as of 09/29/2022) [facility]2018 History of Past illness Narrative* Problem Noted Date Resolved Date Foot arch pain 03/03/2018 04/02/2018 Type 2 diabetes mellitus wit hout complication, without long-term current use of insulin 09/22/2016 04/02/2018 Chronic sinusitis 09/18/2015 04/02/2018 Contusion of unspecified part of upper limb 08/1304/02/2018 Rhinitis 12/26/2010 04/02/2018 Acute sinusitis, unspecified 11/21/2010 Atypical facial pain 12/20/2009 12/21/2012 Unspecified hypothyroidism 08/14/200304/02 Type II or unspecified type diabetes mellitus without mention of complication, not stated as uncontrolled 08/14/2003 documented as of this encounter (statuses as of 09/29/2022) [facility]24-2018 History of Past illness Narrative* Problem Noted Date Resolved Date Foot arch pain 03/03/2018 04/02/2018 Type 2 diabetes mellitus wit hout complication, without long-term current use of insulin 09/22/2016 04/02/2018 Chronic sinusitis 09/18/2015 04/02/2018 Contusion of unspecified part of upper limb 08/1304/02/2018 Rhinitis 12/26/2010 04/02/2018 Acute sinusitis, unspecified 11/21/2010 Atypical facial pain 12/20/2009 12/21/2012 Unspecified hypothyroidism 08/14/200304/02 Type II or unspecified type diabetes mellitus without mention of complication, not stated as uncontrolled 08/14/2003 documented as of this encounter (statuses as of 09/30/2022) [facility]2018 History of Past illness Narrative* Problem Noted Date Resolved Date Foot arch pain 03/03/2018 04/02/2018 Type 2 diabetes mellitus wit hout complication, without long-term current use of insulin 09/22/2016 04/02/2018 Chronic sinusitis 09/18/2015 04/02/2018 Contusion of unspecified part of upper limb 08/1304/02/2018 Rhinitis 12/26/2010 04/02/2018 Acute sinusitis, unspecified 11/21/2010 Atypical facial pain 12/20/2009 12/21/2012 Unspecified hypothyroidism 08/14/200304/02 Type II or unspecified type diabetes mellitus without mention of complication, not stated as uncontrolled 08/14/2003 documented as of this encounter (statuses as of 10/11/2022) [facility]2018 History of Past illness Narrative* Problem Noted Date Resolved Date Foot arch pain 03/03/2018 04/02/2018 Type 2 diabetes mellitus wit hout complication, without long-term current use of insulin 09/22/2016 04/02/2018 Chronic sinusitis 09/18/2015 04/02/2018 Contusion of unspecified part of upper limb 08/1304/02/2018 Rhinitis 12/26/2010 04/02/2018 Acute sinusitis, unspecified 11/21/2010 Atypical facial pain 12/20/2009 12/21/2012 Unspecified hypothyroidism 08/14/200304/02 Type II or unspecified type diabetes mellitus without mention of complication, not stated as uncontrolled 08/14/2003 documented as of this encounter (statuses as of 10/12/2022) [facility] History of Past illness Narrative* Problem Noted Date Resolved Date Foot arch pain 03/03/2018 04/02/2018 Type 2 diabetes mellitus wit hout complication, without long-term current use of insulin 09/22/2016 04/02/2018 Chronic sinusitis 09/18/2015 04/02/2018 Contusion of unspecified part of upper limb 08/1304/02/2018 Rhinitis 12/26/2010 04/02/2018 Acute sinusitis, unspecified 11/21/2010 Atypical facial pain 12/20/2009 12/21/2012 Unspecified hypothyroidism 08/14/200304/02 Type II or unspecified type diabetes mellitus without mention of complication, not stated as uncontrolled 08/14/2003 documented as of this encounter (statuses as of 10/12/2022) [facility] History of Past illness Narrative* Problem Noted Date Resolved Date Foot arch pain 03/03/2018 04/02/2018 Type 2 diabetes mellitus wit hout complication, without long-term current use of insulin 09/22/2016 04/02/2018 Chronic sinusitis 09/18/2015 04/02/2018 Contusion of unspecified part of upper limb 08/1304/02/2018 Rhinitis 12/26/2010 04/02/2018 Acute sinusitis, unspecified 11/21/2010 Atypical facial pain 12/20/2009 12/21/2012 Unspecified hypothyroidism 08/14/200304/02 Type II or unspecified type diabetes mellitus without mention of complication, not stated as uncontrolled 08/14/2003 documented as of this encounter (statuses as of 10/13/2022) [facility] History of Past illness Narrative* Problem Noted Date Resolved Date Foot arch pain 03/03/2018 04/02/2018 Type 2 diabetes mellitus wit hout complication, without long-term current use of insulin 09/22/2016 04/02/2018 Chronic sinusitis 09/18/2015 04/02/2018 Contusion of unspecified part of upper limb 08/1304/02/2018 Rhinitis 12/26/2010 04/02/2018 Acute sinusitis, unspecified 11/21/2010 Atypical facial pain 12/20/2009 12/21/2012 Unspecified hypothyroidism 08/14/200304/02 Type II or unspecified type diabetes mellitus without mention of complication, not stated as uncontrolled 08/14/2003 documented as of this encounter (statuses as of 10/14/2022) [facility] History of Past illness Narrative* Problem Noted Date Resolved Date Foot arch pain 03/03/2018 04/02/2018 Type 2 diabetes mellitus wit hout complication, without long-term current use of insulin 09/22/2016 04/02/2018 Chronic sinusitis 09/18/2015 04/02/2018 Contusion of unspecified part of upper limb 08/1304/02/2018 Rhinitis 12/26/2010 04/02/2018 Acute sinusitis, unspecified 11/21/2010 Atypical facial pain 12/20/2009 12/21/2012 Unspecified hypothyroidism 08/14/200304/02 Type II or unspecified type diabetes mellitus without mention of complication, not stated as uncontrolled 08/14/2003 documented as of this encounter (statuses as of 10/21/2022) [facility] History of Past illness Narrative* Problem Noted Date Resolved Date Foot arch pain 03/03/2018 04/02/2018 Type 2 diabetes mellitus wit hout complication, without long-term current use of insulin 09/22/2016 04/02/2018 Chronic sinusitis 09/18/2015 04/02/2018 Contusion of unspecified part of upper limb 08/1304/02/2018 Rhinitis 12/26/2010 04/02/2018 Acute sinusitis, unspecified 11/21/2010 Atypical facial pain 12/20/2009 12/21/2012 Unspecified hypothyroidism 08/14/200304/02 Type II or unspecified type diabetes mellitus without mention of complication, not stated as uncontrolled 08/14/2003 documented as of this encounter (statuses as of 10/30/2022) [facility] History of Past illness Narrative* Problem Noted Date Resolved Date Foot arch pain 03/03/2018 04/02/2018 Type 2 diabetes mellitus wit hout complication, without long-term current use of insulin 09/22/2016 04/02/2018 Chronic sinusitis 09/18/2015 04/02/2018 Contusion of unspecified part of upper limb 08/1304/02/2018 Rhinitis 12/26/2010 04/02/2018 Acute sinusitis, unspecified 11/21/2010 Atypical facial pain 12/20/2009 12/21/2012 Unspecified hypothyroidism 08/14/200304/02 Type II or unspecified type diabetes mellitus without mention of complication, not stated as uncontrolled 08/14/2003 documented as of this encounter (statuses as of 11/03/2022) [facility] History of Past illness Narrative* Problem Noted Date Resolved Date Foot arch pain 03/03/2018 04/02/2018 Type 2 diabetes mellitus wit hout complication, without long-term current use of insulin 09/22/2016 04/02/2018 Chronic sinusitis 09/18/2015 04/02/2018 Contusion of unspecified part of upper limb 08/1304/02/2018 Rhinitis 12/26/2010 04/02/2018 Acute sinusitis, unspecified 11/21/2010 Atypical facial pain 12/20/2009 12/21/2012 Unspecified hypothyroidism 08/14/200304/02 Type II or unspecified type diabetes mellitus without mention of complication, not stated as uncontrolled 08/14/2003 documented as of this encounter (statuses as of 11/03/2022) [facility] History of Past illness Narrative* Problem Noted Date Resolved Date Foot arch pain 03/03/2018 04/02/2018 Type 2 diabetes mellitus wit hout complication, without long-term current use of insulin 09/22/2016 04/02/2018 Chronic sinusitis 09/18/2015 04/02/2018 Contusion of unspecified part of upper limb 08/1304/02/2018 Rhinitis 12/26/2010 04/02/2018 Acute sinusitis, unspecified 11/21/2010 Atypical facial pain 12/20/2009 12/21/2012 Unspecified hypothyroidism 08/14/200304/02 Type II or unspecified type diabetes mellitus without mention of complication, not stated as uncontrolled 08/14/2003 documented as of this encounter (statuses as of 11/13/2022) [facility] History of Past illness Narrative* Problem Noted Date Resolved Date Foot arch pain 03/03/2018 04/02/2018 Type 2 diabetes mellitus wit hout complication, without long-term current use of insulin 09/22/2016 04/02/2018 Chronic sinusitis 09/18/2015 04/02/2018 Contusion of unspecified part of upper limb 08/1304/02/2018 Rhinitis 12/26/2010 04/02/2018 Acute sinusitis, unspecified 11/21/2010 Atypical facial pain 12/20/2009 12/21/2012 Unspecified hypothyroidism 08/14/200304/02 Type II or unspecified type diabetes mellitus without mention of complication, not stated as uncontrolled 08/14/2003 documented as of this encounter (statuses as of 11/23/2022) [address]24-2018 History of Past illness Narrative* Problem Noted Date Resolved Date Foot arch pain 03/03/2018 04/02/2018 Type 2 diabetes mellitus wit hout complication, without long-term current use of insulin 09/22/2016 04/02/2018 Chronic sinusitis 09/18/2015 04/02/2018 Contusion of unspecified part of upper limb 08/1304/02/2018 Rhinitis 12/26/2010 04/02/2018 Acute sinusitis, unspecified 11/21/2010 Atypical facial pain 12/20/2009 12/21/2012 Unspecified hypothyroidism 08/14/200304/02 Type II or unspecified type diabetes mellitus without mention of complication, not stated as uncontrolled 08/14/2003 documented as of this encounter (statuses as of 12/07/2022) [place] [id number] History of Past illness Narrative* Problem Noted Date Resolved Date Foot arch pain 03/03/2018 04/02/2018 Type 2 diabetes mellitus wit hout complication, without long-term current use of insulin 09/22/2016 04/02/2018 Chronic sinusitis 09/18/2015 04/02/2018 Contusion of unspecified part of upper limb 08/1304/02/2018 Rhinitis 12/26/2010 04/02/2018 Acute sinusitis, unspecified 11/21/2010 Atypical facial pain 12/20/2009 12/21/2012 Unspecified hypothyroidism 08/14/200304/02 Type II or unspecified type diabetes mellitus without mention of complication, not stated as uncontrolled 08/14/2003 documented as of this encounter (statuses as of 12/09/2022) [facility] History of Past illness Narrative* Problem Noted Date Resolved Date Foot arch pain 03/03/2018 04/02/2018 Type 2 diabetes mellitus wit hout complication, without long-term current use of insulin 09/22/2016 04/02/2018 Chronic sinusitis 09/18/2015 04/02/2018 Contusion of unspecified part of upper limb 08/1304/02/2018 Rhinitis 12/26/2010 04/02/2018 Acute sinusitis, unspecified 11/21/2010 Atypical facial pain 12/20/2009 12/21/2012 Unspecified hypothyroidism 08/14/200304/02 Type II or unspecified type diabetes mellitus without mention of complication, not stated as uncontrolled 08/14/2003 documented as of this encounter (statuses as of 12/10/2022) [address]24-2018 History of Past illness Narrative* Problem Noted Date Resolved Date Foot arch pain 03/03/2018 04/02/2018 Type 2 diabetes mellitus wit hout complication, without long-term current use of insulin 09/22/2016 04/02/2018 Chronic sinusitis 09/18/2015 04/02/2018 Contusion of unspecified part of upper limb 08/1304/02/2018 Rhinitis 12/26/2010 04/02/2018 Acute sinusitis, unspecified 11/21/2010 Atypical facial pain 12/20/2009 12/21/2012 Unspecified hypothyroidism 08/14/200304/02 Type II or unspecified type diabetes mellitus without mention of complication, not stated as uncontrolled 08/14/2003 documented as of this encounter (statuses as of 12/15/2022) [place] [id number] History of Past illness Narrative* Problem Noted Date Resolved Date Foot arch pain 03/03/2018 04/02/2018 Type 2 diabetes mellitus wit hout complication, without long-term current use of insulin 09/22/2016 04/02/2018 Chronic sinusitis 09/18/2015 04/02/2018 Contusion of unspecified part of upper limb 08/1304/02/2018 Rhinitis 12/26/2010 04/02/2018 Acute sinusitis, unspecified 11/21/2010 Atypical facial pain 12/20/2009 12/21/2012 Unspecified hypothyroidism 08/14/200304/02 Type II or unspecified type diabetes mellitus without mention of complication, not stated as uncontrolled 08/14/2003 documented as of this encounter (statuses as of 12/22/2022) [address]24-2018 History of Past illness Narrative* Problem Noted Date Resolved Date Foot arch pain 03/03/2018 04/02/2018 Type 2 diabetes mellitus wit hout complication, without long-term current use of insulin 09/22/2016 04/02/2018 Chronic sinusitis 09/18/2015 04/02/2018 Contusion of unspecified part of upper limb 08/1304/02/2018 Rhinitis 12/26/2010 04/02/2018 Acute sinusitis, unspecified 11/21/2010 Atypical facial pain 12/20/2009 12/21/2012 Unspecified hypothyroidism 08/14/200304/02 Type II or unspecified type diabetes mellitus without mention of complication, not stated as uncontrolled 08/14/2003 documented as of this encounter (statuses as of 12/29/2022) [address]24-2018 History of Past illness Narrative* Problem Noted Date Resolved Date Foot arch pain 03/03/2018 04/02/2018 Type 2 diabetes mellitus wit hout complication, without long-term current use of insulin 09/22/2016 04/02/2018 Chronic sinusitis 09/18/2015 04/02/2018 Contusion of unspecified part of upper limb 08/1304/02/2018 Rhinitis 12/26/2010 04/02/2018 Acute sinusitis, unspecified 11/21/2010 Atypical facial pain 12/20/2009 12/21/2012 Unspecified hypothyroidism 08/14/200304/02 Type II or unspecified type diabetes mellitus without mention of complication, not stated as uncontrolled 08/14/2003 documented as of this encounter (statuses as of 01/02/2023) [facility]2018 History of Past illness Narrative* Problem Noted Date Resolved Date Foot arch pain 03/03/2018 04/02/2018 Type 2 diabetes mellitus wit hout complication, without long-term current use of insulin 09/22/2016 04/02/2018 Chronic sinusitis 09/18/2015 04/02/2018 Contusion of unspecified part of upper limb 08/1304/02/2018 Rhinitis 12/26/2010 04/02/2018 Acute sinusitis, unspecified 11/21/2010 Atypical facial pain 12/20/2009 12/21/2012 Unspecified hypothyroidism 08/14/200304/02 Type II or unspecified type diabetes mellitus without mention of complication, not stated as uncontrolled 08/14/2003 documented as of this encounter (statuses as of 01/12/2023) [facility]2018 History of Past illness Narrative* Problem Noted Date Resolved Date Foot arch pain 03/03/2018 04/02/2018 Type 2 diabetes mellitus wit hout complication, without long-term current use of insulin 09/22/2016 04/02/2018 Chronic sinusitis 09/18/2015 04/02/2018 Contusion of unspecified part of upper limb 08/1304/02/2018 Rhinitis 12/26/2010 04/02/2018 Acute sinusitis, unspecified 11/21/2010 Atypical facial pain 12/20/2009 12/21/2012 Unspecified hypothyroidism 08/14/200304/02 Type II or unspecified type diabetes mellitus without mention of complication, not stated as uncontrolled 08/14/2003 documented as of this encounter (statuses as of 01/15/2023) [facility] History of Past illness Narrative* Problem Noted Date Resolved Date Foot arch pain 03/03/2018 04/02/2018 Type 2 diabetes mellitus wit hout complication, without long-term current use of insulin 09/22/2016 04/02/2018 Chronic sinusitis 09/18/2015 04/02/2018 Contusion of unspecified part of upper limb 08/1304/02/2018 Rhinitis 12/26/2010 04/02/2018 Acute sinusitis, unspecified 11/21/2010 Atypical facial pain 12/20/2009 12/21/2012 Unspecified hypothyroidism 08/14/200304/02 Type II or unspecified type diabetes mellitus without mention of complication, not stated as uncontrolled 08/14/2003 documented as of this encounter (statuses as of 01/26/2023) [facility] History of Past illness Narrative* Problem Noted Date Resolved Date Foot arch pain 03/03/2018 04/02/2018 Type 2 diabetes mellitus wit hout complication, without long-term current use of insulin 09/22/2016 04/02/2018 Chronic sinusitis 09/18/2015 04/02/2018 Contusion of unspecified part of upper limb 08/1304/02/2018 Rhinitis 12/26/2010 04/02/2018 Acute sinusitis, unspecified 11/21/2010 Atypical facial pain 12/20/2009 12/21/2012 Unspecified hypothyroidism 08/14/200304/02 Type II or unspecified type diabetes mellitus without mention of complication, not stated as uncontrolled 08/14/2003 documented as of this encounter (statuses as of 01/29/2023) [facility]2018 History of Past illness Narrative* Problem Noted Date Resolved Date Foot arch pain 03/03/2018 04/02/2018 Type 2 diabetes mellitus wit hout complication, without long-term current use of insulin 09/22/2016 04/02/2018 Chronic sinusitis 09/18/2015 04/02/2018 Contusion of unspecified part of upper limb 08/1304/02/2018 Rhinitis 12/26/2010 04/02/2018 Acute sinusitis, unspecified 11/21/2010 Atypical facial pain 12/20/2009 12/21/2012 Unspecified hypothyroidism 08/14/200304/02 Type II or unspecified type diabetes mellitus without mention of complication, not stated as uncontrolled 08/14/2003 documented as of this encounter (statuses as of 02/05/2023) [facility]2018 History of Past illness Narrative* Problem Noted Date Resolved Date Foot arch pain 03/03/2018 04/02/2018 Type 2 diabetes mellitus wit hout complication, without long-term current use of insulin 09/22/2016 04/02/2018 Chronic sinusitis 09/18/2015 04/02/2018 Contusion of unspecified part of upper limb 08/1304/02/2018 Rhinitis 12/26/2010 04/02/2018 Acute sinusitis, unspecified 11/21/2010 Atypical facial pain 12/20/2009 12/21/2012 Unspecified hypothyroidism 08/14/200304/02 Type II or unspecified type diabetes mellitus without mention of complication, not stated as uncontrolled 08/14/2003 documented as of this encounter (statuses as of 02/17/2023) [address]24-2018 History of Past illness Narrative* Problem Noted Date Resolved Date Foot arch pain 03/03/2018 04/02/2018 Type 2 diabetes mellitus wit hout complication, without long-term current use of insulin 09/22/2016 04/02/2018 Chronic sinusitis 09/18/2015 04/02/2018 Contusion of unspecified part of upper limb 08/1304/02/2018 Rhinitis 12/26/2010 04/02/2018 Acute sinusitis, unspecified 11/21/2010 Atypical facial pain 12/20/2009 12/21/2012 Unspecified hypothyroidism 08/14/200304/02 Type II or unspecified type diabetes mellitus without mention of complication, not stated as uncontrolled 08/14/2003 documented as of this encounter (statuses as of 03/09/2023) [address]24-2018 History of Past illness Narrative* Problem Noted Date Resolved Date Foot arch pain 03/03/2018 04/02/2018 Type 2 diabetes mellitus wit hout complication, without long-term current use of insulin 09/22/2016 04/02/2018 Chronic sinusitis 09/18/2015 04/02/2018 Contusion of unspecified part of upper limb 08/1304/02/2018 Rhinitis 12/26/2010 04/02/2018 Acute sinusitis, unspecified 11/21/2010 Atypical facial pain 12/20/2009 12/21/2012 Unspecified hypothyroidism 08/14/200304/02 Type II or unspecified type diabetes mellitus without mention of complication, not stated as uncontrolled 08/14/2003 documented as of this encounter (statuses as of 03/13/2023) [facility]2018 History of Past illness Narrative* Problem Noted Date Resolved Date Foot arch pain 03/03/2018 04/02/2018 Type 2 diabetes mellitus wit hout complication, without long-term current use of insulin 09/22/2016 04/02/2018 Chronic sinusitis 09/18/2015 04/02/2018 Contusion of unspecified part of upper limb 08/1304/02/2018 Rhinitis 12/26/2010 04/02/2018 Acute sinusitis, unspecified 11/21/2010 Atypical facial pain 12/20/2009 12/21/2012 Unspecified hypothyroidism 08/14/200304/02 Type II or unspecified type diabetes mellitus without mention of complication, not stated as uncontrolled 08/14/2003 documented as of this encounter (statuses as of 03/18/2023) [facility]2018 History of Past illness Narrative* Problem Noted Date Resolved Date Foot arch pain 03/03/2018 04/02/2018 Type 2 diabetes mellitus wit hout complication, without long-term current use of insulin 09/22/2016 04/02/2018 Chronic sinusitis 09/18/2015 04/02/2018 Contusion of unspecified part of upper limb 08/1304/02/2018 Rhinitis 12/26/2010 04/02/2018 Acute sinusitis, unspecified 11/21/2010 Atypical facial pain 12/20/2009 12/21/2012 Unspecified hypothyroidism 08/14/200304/02 Type II or unspecified type diabetes mellitus without mention of complication, not stated as uncontrolled 08/14/2003 documented as of this encounter (statuses as of 03/25/2023) [facility]2018 History of Past illness Narrative* Problem Noted Date Resolved Date Foot arch pain 03/03/2018 04/02/2018 Type 2 diabetes mellitus wit hout complication, without long-term current use of insulin 09/22/2016 04/02/2018 Chronic sinusitis 09/18/2015 04/02/2018 Contusion of unspecified part of upper limb 08/1304/02/2018 Rhinitis 12/26/2010 04/02/2018 Acute sinusitis, unspecified 11/21/2010 Atypical facial pain 12/20/2009 12/21/2012 Unspecified hypothyroidism 08/14/200304/02 Type II or unspecified type diabetes mellitus without mention of complication, not stated as uncontrolled 08/14/2003 documented as of this encounter (statuses as of 03/26/2023) [facility] History of Past illness Narrative* Problem Noted Date Resolved Date Foot arch pain 03/03/2018 04/02/2018 Type 2 diabetes mellitus wit hout complication, without long-term current use of insulin 09/22/2016 04/02/2018 Chronic sinusitis 09/18/2015 04/02/2018 Contusion of unspecified part of upper limb 08/1304/02/2018 Rhinitis 12/26/2010 04/02/2018 Acute sinusitis, unspecified 11/21/2010 Atypical facial pain 12/20/2009 12/21/2012 Unspecified hypothyroidism 08/14/200304/02 Type II or unspecified type diabetes mellitus without mention of complication, not stated as uncontrolled 08/14/2003 documented as of this encounter (statuses as of 04/06/2023) [facility] History of Past illness Narrative* Problem Noted Date Diagnosed Date Resolved Date Foot arch pain 03/03/2018 04/02/2018 Type 2 diabetes mellitus wit hout complication, without long-term current use of insulin 09/22/2016 04/02/2018 Chronic sinusitis 09/18/2015 04/02/2018 Contusion of unspecified part of upper limb 09/09/2011 04/02/2018 Rhinitis 12/26/2010 04/02/2018 Acute sinusitis, unspecified 11/21/2010 04/02/2018 Atypical facial pain 12/20/2009 013 Unspecified hypothyroidism 08/14/2003 0 04/02/2018 Type II or unspecified type diabetes mellitus without mention of complication, not stated as uncontrolled 08/14/2003 08/15/2003 documented as of this encounter (statuses as of 04/19/2023) [facility]2018 History of Past illness Narrative* Problem Noted Date Diagnosed Date Resolved Date Foot arch pain 03/03/2018 04/02/2018 Type 2 diabetes mellitus wit hout complication, without long-term current use of insulin 09/22/2016 04/02/2018 Chronic sinusitis 09/18/2015 04/02/2018 Contusion of unspecified part of upper limb 09/09/2011 04/02/2018 Rhinitis 12/26/2010 04/02/2018 Acute sinusitis, unspecified 11/21/2010 04/02/2018 Atypical facial pain 12/20/2009 013 Unspecified hypothyroidism 08/14/2003 0 04/02/2018 Type II or unspecified type diabetes mellitus without mention of complication, not stated as uncontrolled 08/14/2003 08/15/2003 documented as of this encounter (statuses as of 04/22/2023) [facility]2018 History of Past illness Narrative* Problem Noted Date Diagnosed Date Resolved Date Foot arch pain 03/03/2018 04/02/2018 Type 2 diabetes mellitus wit hout complication, without long-term current use of insulin 09/22/2016 04/02/2018 Chronic sinusitis 09/18/2015 04/02/2018 Contusion of unspecified part of upper limb 09/09/2011 04/02/2018 Rhinitis 12/26/2010 04/02/2018 Acute sinusitis, unspecified 11/21/2010 04/02/2018 Atypical facial pain 12/20/2009 013 Unspecified hypothyroidism 08/14/2003 0 04/02/2018 Type II or unspecified type diabetes mellitus without mention of complication, not stated as uncontrolled 08/14/2003 08/15/2003 documented as of this encounter (statuses as of 04/22/2023) [facility] History of Past illness Narrative* Problem Noted Date Diagnosed Date Resolved Date Foot arch pain 03/03/2018 04/02/2018 Type 2 diabetes mellitus wit hout complication, without long-term current use of insulin 09/22/2016 04/02/2018 Chronic sinusitis 09/18/2015 04/02/2018 Contusion of unspecified part of upper limb 09/09/2011 04/02/2018 Rhinitis 12/26/2010 04/02/2018 Acute sinusitis, unspecified 11/21/2010 04/02/2018 Atypical facial pain 12/20/20092 013 Unspecified hypothyroidism 08/14/2003 0 04/02/2018 Type II or unspecified type diabetes mellitus without mention of complication, not stated as uncontrolled 08/14/2003 08/15/2003 documented as of this encounter (statuses as of 04/26/2023) [facility]2018 History of Past illness Narrative* Problem Noted Date Diagnosed Date Resolved Date Foot arch pain 03/03/2018 04/02/2018 Type 2 diabetes mellitus wit hout complication, without long-term current use of insulin 09/22/2016 04/02/2018 Chronic sinusitis 09/18/2015 04/02/2018 Contusion of unspecified part of upper limb 09/09/2011 04/02/2018 Rhinitis 12/26/2010 04/02/2018 Acute sinusitis, unspecified 11/21/2010 04/02/2018 Atypical facial pain 12/20/2009 013 Unspecified hypothyroidism 08/14/2003 0 04/02/2018 Type II or unspecified type diabetes mellitus without mention of complication, not stated as uncontrolled 08/14/2003 08/15/2003 documented as of this encounter (statuses as of 05/17/2023) [facility] History of Past illness Narrative* Problem Noted Date Diagnosed Date Resolved Date Foot arch pain 03/03/2018 04/02/2018 Type 2 diabetes mellitus wit hout complication, without long-term current use of insulin 09/22/2016 04/02/2018 Chronic sinusitis 09/18/2015 04/02/2018 Contusion of unspecified part of upper limb 09/09/2011 04/02/2018 Rhinitis 12/26/2010 04/02/2018 Acute sinusitis, unspecified 11/21/2010 04/02/2018 Atypical facial pain 12/20/20092 013 Unspecified hypothyroidism 08/14/2003 0 04/02/2018 Type II or unspecified type diabetes mellitus without mention of complication, not stated as uncontrolled 08/14/2003 08/15/2003 documented as of this encounter (statuses as of 05/21/2023) [facility] History of Past illness Narrative* Problem Noted Date Diagnosed Date Resolved Date Foot arch pain 03/03/2018 04/02/2018 Type 2 diabetes mellitus wit hout complication, without long-term current use of insulin 09/22/2016 04/02/2018 Chronic sinusitis 09/18/2015 04/02/2018 Contusion of unspecified part of upper limb 09/09/2011 04/02/2018 Rhinitis 12/26/2010 04/02/2018 Acute sinusitis, unspecified 11/21/2010 04/02/2018 Atypical facial pain 12/20/2009 013 Unspecified hypothyroidism 08/14/2003 0 04/02/2018 Type II or unspecified type diabetes mellitus without mention of complication, not stated as uncontrolled 08/14/2003 08/15/2003 documented as of this encounter (statuses as of 06/17/2023) [facility] History of Past illness Narrative* Problem Noted Date Diagnosed Date Resolved Date Foot arch pain 03/03/2018 04/02/2018 Type 2 diabetes mellitus wit hout complication, without long-term current use of insulin 09/22/2016 04/02/2018 Chronic sinusitis 09/18/2015 04/02/2018 Contusion of unspecified part of upper limb 09/09/2011 04/02/2018 Rhinitis 12/26/2010 04/02/2018 Acute sinusitis, unspecified 11/21/2010 04/02/2018 Atypical facial pain 12/20/2009 013 Unspecified hypothyroidism 08/14/2003 0 04/02/2018 Type II or unspecified type diabetes mellitus without mention of complication, not stated as uncontrolled 08/14/2003 08/15/2003 documented as of this encounter (statuses as of 06/18/2023) [facility] History of Past illness Narrative* Problem Noted Date Diagnosed Date Resolved Date Foot arch pain 03/03/2018 04/02/2018 Type 2 diabetes mellitus wit hout complication, without long-term current use of insulin 09/22/2016 04/02/2018 Chronic sinusitis 09/18/2015 04/02/2018 Contusion of unspecified part of upper limb 09/09/2011 04/02/2018 Rhinitis 12/26/2010 04/02/2018 Acute sinusitis, unspecified 11/21/2010 04/02/2018 Atypical facial pain 12/20/2009 013 Unspecified hypothyroidism 08/14/2003 0 04/02/2018 Type II or unspecified type diabetes mellitus without mention of complication, not stated as uncontrolled 08/14/2003 08/15/2003 documented as of this encounter (statuses as of 06/22/2023) [place] [id number] History of Past illness Narrative* Problem Noted Date Diagnosed Date Resolved Date Foot arch pain 03/03/2018 04/02/2018 Type 2 diabetes mellitus wit hout complication, without long-term current use of insulin 09/22/2016 04/02/2018 Chronic sinusitis 09/18/2015 04/02/2018 Contusion of unspecified part of upper limb 09/09/2011 04/02/2018 Rhinitis 12/26/2010 04/02/2018 Acute sinusitis, unspecified 11/21/2010 04/02/2018 Atypical facial pain 12/20/2009 013 Unspecified hypothyroidism 08/14/2003 0 04/02/2018 Type II or unspecified type diabetes mellitus without mention of complication, not stated as uncontrolled 08/14/2003 08/15/2003 documented as of this encounter (statuses as of 06/23/2023) [facility] History of Past illness Narrative* Problem Noted Date Diagnosed Date Resolved Date Foot arch pain 03/03/2018 04/02/2018 Type 2 diabetes mellitus wit hout complication, without long-term current use of insulin 09/22/2016 04/02/2018 Chronic sinusitis 09/18/2015 04/02/2018 Contusion of unspecified part of upper limb 09/09/2011 04/02/2018 Rhinitis 12/26/2010 04/02/2018 Acute sinusitis, unspecified 11/21/2010 04/02/2018 Atypical facial pain 12/20/2009 013 Unspecified hypothyroidism 08/14/2003 0 04/02/2018 Type II or unspecified type diabetes mellitus without mention of complication, not stated as uncontrolled 08/14/2003 08/15/2003 documented as of this encounter (statuses as of 06/23/2023) [facility] History of Past illness Narrative* Problem Noted Date Diagnosed Date Resolved Date Foot arch pain 03/03/2018 04/02/2018 Type 2 diabetes mellitus wit hout complication, without long-term current use of insulin 09/22/2016 04/02/2018 Chronic sinusitis 09/18/2015 04/02/2018 Contusion of unspecified part of upper limb 09/09/2011 04/02/2018 Rhinitis 12/26/2010 04/02/2018 Acute sinusitis, unspecified 11/21/2010 04/02/2018 Atypical facial pain 12/20/2009 013 Unspecified hypothyroidism 08/14/2003 0 04/02/2018 Type II or unspecified type diabetes mellitus without mention of complication, not stated as uncontrolled 08/14/2003 08/15/2003 documented as of this encounter (statuses as of 06/30/2023) [facility] History of Past illness Narrative* Problem Noted Date Diagnosed Date Resolved Date Foot arch pain 03/03/2018 04/02/2018 Type 2 diabetes mellitus wit hout complication, without long-term current use of insulin 09/22/2016 04/02/2018 Chronic sinusitis 09/18/2015 04/02/2018 Contusion of unspecified part of upper limb 09/09/2011 04/02/2018 Rhinitis 12/26/2010 04/02/2018 Acute sinusitis, unspecified 11/21/2010 04/02/2018 Atypical facial pain 12/20/2009 013 Unspecified hypothyroidism 08/14/2003 0 04/02/2018 Type II or unspecified type diabetes mellitus without mention of complication, not stated as uncontrolled 08/14/2003 08/15/2003 documented as of this encounter (statuses as of 07/22/2023) [address]24-2018 History of Past illness Narrative* Problem Noted Date Diagnosed Date Resolved Date Foot arch pain 03/03/2018 04/02/2018 Type 2 diabetes mellitus wit hout complication, without long-term current use of insulin 09/22/2016 04/02/2018 Chronic sinusitis 09/18/2015 04/02/2018 Contusion of unspecified part of upper limb 09/09/2011 04/02/2018 Rhinitis 12/26/2010 04/02/2018 Acute sinusitis, unspecified 11/21/2010 04/02/2018 Atypical facial pain 12/20/2009 013 Unspecified hypothyroidism 08/14/2003 0 04/02/2018 Type II or unspecified type diabetes mellitus without mention of complication, not stated as uncontrolled 08/14/2003 08/15/2003 documented as of this encounter (statuses as of 08/05/2023) [facility] History of Past illness Narrative* Problem Noted Date Diagnosed Date Resolved Date Foot arch pain 03/03/2018 04/02/2018 Type 2 diabetes mellitus wit hout complication, without long-term current use of insulin 09/22/2016 04/02/2018 Chronic sinusitis 09/18/2015 04/02/2018 Contusion of unspecified part of upper limb 09/09/2011 04/02/2018 Rhinitis 12/26/2010 04/02/2018 Acute sinusitis, unspecified 11/21/2010 04/02/2018 Atypical facial pain 12/20/2009 013 Unspecified hypothyroidism 08/14/2003 0 04/02/2018 Type II or unspecified type diabetes mellitus without mention of complication, not stated as uncontrolled 08/14/2003 08/15/2003 documented as of this encounter (statuses as of 08/08/2023) [facility] History of Past illness Narrative* Problem Noted Date Diagnosed Date Resolved Date Foot arch pain 03/03/2018 04/02/2018 Type 2 diabetes mellitus wit hout complication, without long-term current use of insulin 09/22/2016 04/02/2018 Chronic sinusitis 09/18/2015 04/02/2018 Contusion of unspecified part of upper limb 09/09/2011 04/02/2018 Rhinitis 12/26/2010 04/02/2018 Acute sinusitis, unspecified 11/21/2010 04/02/2018 Atypical facial pain 12/20/2009 013 Unspecified hypothyroidism 08/14/2003 0 04/02/2018 Type II or unspecified type diabetes mellitus without mention of complication, not stated as uncontrolled 08/14/2003 08/15/2003 documented as of this encounter (statuses as of 08/13/2023) [facility] History of Past illness Narrative* Problem Noted Date Diagnosed Date Resolved Date Foot arch pain 03/03/2018 04/02/2018 Type 2 diabetes mellitus wit hout complication, without long-term current use of insulin 09/22/2016 04/02/2018 Chronic sinusitis 09/18/2015 04/02/2018 Contusion of unspecified part of upper limb 09/09/2011 04/02/2018 Rhinitis 12/26/2010 04/02/2018 Acute sinusitis, unspecified 11/21/2010 04/02/2018 Atypical facial pain 12/20/20092 013 Unspecified hypothyroidism 08/14/2003 0 04/02/2018 Type II or unspecified type diabetes mellitus without mention of complication, not stated as uncontrolled 08/14/2003 08/15/2003 documented as of this encounter (statuses as of 08/13/2023) [facility] History of Past illness Narrative* Problem Noted Date Diagnosed Date Resolved Date Foot arch pain 03/03/2018 04/02/2018 Type 2 diabetes mellitus wit hout complication, without long-term current use of insulin 09/22/2016 04/02/2018 Chronic sinusitis 09/18/2015 04/02/2018 Contusion of unspecified part of upper limb 09/09/2011 04/02/2018 Rhinitis 12/26/2010 04/02/2018 Acute sinusitis, unspecified 11/21/2010 04/02/2018 Atypical facial pain 12/20/2009 013 Unspecified hypothyroidism 08/14/2003 0 04/02/2018 Type II or unspecified type diabetes mellitus without mention of complication, not stated as uncontrolled 08/14/2003 08/15/2003 documented as of this encounter (statuses as of 08/18/2023) [facility] History of Past illness Narrative* Problem Noted Date Diagnosed Date Resolved Date Foot arch pain 03/03/2018 04/02/2018 Type 2 diabetes mellitus wit hout complication, without long-term current use of insulin 09/22/2016 04/02/2018 Chronic sinusitis 09/18/2015 04/02/2018 Contusion of unspecified part of upper limb 09/09/2011 04/02/2018 Rhinitis 12/26/2010 04/02/2018 Acute sinusitis, unspecified 11/21/2010 04/02/2018 Atypical facial pain 12/20/2009 013 Unspecified hypothyroidism 08/14/2003 0 04/02/2018 Type II or unspecified type diabetes mellitus without mention of complication, not stated as uncontrolled 08/14/2003 08/15/2003 documented as of this encounter (statuses as of 08/24/2023) [facility] History of Past illness Narrative* Problem Noted Date Diagnosed Date Resolved Date Foot arch pain 03/03/2018 04/02/2018 Type 2 diabetes mellitus wit hout complication, without long-term current use of insulin 09/22/2016 04/02/2018 Chronic sinusitis 09/18/2015 04/02/2018 Contusion of unspecified part of upper limb 09/09/2011 04/02/2018 Rhinitis 12/26/2010 04/02/2018 Acute sinusitis, unspecified 11/21/2010 04/02/2018 Atypical facial pain 12/20/2009 013 Unspecified hypothyroidism 08/14/2003 0 04/02/2018 Type II or unspecified type diabetes mellitus without mention of complication, not stated as uncontrolled 08/14/2003 08/15/2003 documented as of this encounter (statuses as of 08/31/2023) [facility] History of Past illness Narrative* Problem Noted Date Diagnosed Date Resolved Date Foot arch pain 03/03/2018 04/02/2018 Type 2 diabetes mellitus wit hout complication, without long-term current use of insulin 09/22/2016 04/02/2018 Chronic sinusitis 09/18/2015 04/02/2018 Contusion of unspecified part of upper limb 09/09/2011 04/02/2018 Rhinitis 12/26/2010 04/02/2018 Acute sinusitis, unspecified 11/21/2010 04/02/2018 Atypical facial pain 12/20/2009 013 Unspecified hypothyroidism 08/14/2003 0 04/02/2018 Type II or unspecified type diabetes mellitus without mention of complication, not stated as uncontrolled 08/14/2003 08/15/2003 documented as of this encounter (statuses as of 09/01/2023) [facility] History of Past illness Narrative* Problem Noted Date Diagnosed Date Resolved Date Foot arch pain 03/03/2018 04/02/2018 Type 2 diabetes mellitus wit hout complication, without long-term current use of insulin 09/22/2016 04/02/2018 Chronic sinusitis 09/18/2015 04/02/2018 Contusion of unspecified part of upper limb 09/09/2011 04/02/2018 Rhinitis 12/26/2010 04/02/2018 Acute sinusitis, unspecified 11/21/2010 04/02/2018 Atypical facial pain 12/20/2009 013 Unspecified hypothyroidism 08/14/2003 0 04/02/2018 Type II or unspecified type diabetes mellitus without mention of complication, not stated as uncontrolled 08/14/2003 08/15/2003 documented as of this encounter (statuses as of 09/07/2023) [facility] History of Past illness Narrative* Problem Noted Date Diagnosed Date Resolved Date Foot arch pain 03/03/2018 04/02/2018 Type 2 diabetes mellitus wit hout complication, without long-term current use of insulin 09/22/2016 04/02/2018 Chronic sinusitis 09/18/2015 04/02/2018 Contusion of unspecified part of upper limb 09/09/2011 04/02/2018 Rhinitis 12/26/2010 04/02/2018 Acute sinusitis, unspecified 11/21/2010 04/02/2018 Atypical facial pain 12/20/2009 013 Unspecified hypothyroidism 08/14/2003 0 04/02/2018 Type II or unspecified type diabetes mellitus without mention of complication, not stated as uncontrolled 08/14/2003 08/15/2003 documented as of this encounter (statuses as of 09/10/2023) [facility] History of Past illness Narrative* Problem Noted Date Diagnosed Date Resolved Date Foot arch pain 03/03/2018 04/02/2018 Type 2 diabetes mellitus wit hout complication, without long-term current use of insulin 09/22/2016 04/02/2018 Chronic sinusitis 09/18/2015 04/02/2018 Contusion of unspecified part of upper limb 09/09/2011 04/02/2018 Rhinitis 12/26/2010 04/02/2018 Acute sinusitis, unspecified 11/21/2010 04/02/2018 Atypical facial pain 12/20/2009 013 Unspecified hypothyroidism 08/14/2003 0 04/02/2018 Type II or unspecified type diabetes mellitus without mention of complication, not stated as uncontrolled 08/14/2003 08/15/2003 documented as of this encounter (statuses as of 09/15/2023) [facility] History of Past illness Narrative* Problem Noted Date Diagnosed Date Resolved Date Foot arch pain 03/03/2018 04/02/2018 Type 2 diabetes mellitus wit hout complication, without long-term current use of insulin 09/22/2016 04/02/2018 Chronic sinusitis 09/18/2015 04/02/2018 Contusion of unspecified part of upper limb 09/09/2011 04/02/2018 Rhinitis 12/26/2010 04/02/2018 Acute sinusitis, unspecified 11/21/2010 04/02/2018 Atypical facial pain 12/20/2009 013 Unspecified hypothyroidism 08/14/2003 0 04/02/2018 Type II or unspecified type diabetes mellitus without mention of complication, not stated as uncontrolled 08/14/2003 08/15/2003 documented as of this encounter (statuses as of 09/22/2023) [facility] note* Diagnosis Symptomatic menopausal or female climacteric states- Primary [place] Hirsutism [facility] Diagnosis Encounter for long-term (current) use of medications- Primary Encounter for long-term (current) use of other medications [facility] Diagnosis Ganglion and cyst of synovium, tendon, and bursa- Primary Other ganglion and cyst of synovium, tendon, and bursa documented [facility] Diagnosis Encounter for screening mammogram for breast cancer [facility] Diagnosis Abnormal mammogram- Primary Abnormal mammogram, unspecified [facility] Diagnosis Eczema, unspecified type [facility] Diagnosis Hypertrophic scar- Primary Keloid scar Other viral warts Facial dermatitis Contact dermatitis and other eczema, due to unspecified cause [facility] Diagnosis PVD (peripheral vascular disease) ([facility])- Primary Peripheral vascular disease, unspecified Venous insufficiency Unspecified venous (peripheral) insufficiency Well controlled type 2 diabetes mellitus with neurological manifestations ([facility]) Type II or unspecified type diabetes mellitus with neurological manifestations, not stated as uncontrolled Onychocryptosis Ingrowing nail Pain in toe of right foot Pain in limb Pain in toe of left foot Pain in limb [facility] Diagnosis Migraine without aura and without status migrainosus, not intractable- Primary Migraine without aura, without mention of intractable migraine without mention of status migrainosus [facility]* Diagnosis Seasonal allergies Allergic rhinitis, cause unspecified [facility] Diagnosis Verruca vulgaris- Primary Viral warts, unspecified Seborrheic dermatitis Seborrheic dermatitis, unspecified Rosacea [facility] Diagnosis Inflammatory arthritis- Primary Unspecified inflammatory polyarthropathy Long-term use of Plaquenil Encounter for long-term (current) use of other medications Fibromyalgia Mylagia and myositis, unspecified Pain in joint, multiple sites [facility] Seasonal allergies Allergic rhinitis, cause unspecified [facility]* Diagnosis Eczema, unspecified type [facility] Diagnosis Other viral warts- Primary Rosacea Facial eczema Contact dermatitis and other eczema, due to unspecified cause [facility]* Diagnosis Acute non-recurrent maxillary sinusitis- Primary [facility]* Diagnosis Excessive hair growth- Primary Hirsutism Fibromyalgia Mylagia and myositis, unspecified Chronic pain syndrome Displacement of cervical intervertebral disc without myelopathy Pain in joint, multiple sites Myalgia Mylagia and myositis, unspecified Pain of nose Other diseases of nasal cavity and sinuses [facility]* Diagnosis Other viral warts- Primary Rosacea [facility]* Diagnosis Empty nose syndrome- Primary Other diseases of nasal cavity and sinuses Nasal crusting Other diseases of nasal cavity and sinuses [facility]* Diagnosis Postsurgical hypothyroidism- Primary [facility]* Diagnosis Postsurgical hypothyroidism- Primary Other cough Dysphagia, unspecified type Change in voice Other voice and resonance disorders [facility] Diagnosis Venous insufficiency- Primary Unspecified venous (peripheral) insufficiency PVD (peripheral vascular disease) (HCC) Peripheral vascular disease, unspecified Well controlled type 2 diabetes mellitus with neurological manifestations (HCC) Type II or unspecified type diabetes mellitus with neurological manifestations, not stated as uncontrolled Plantar fasciitis, bilateral Plantar fascial fibromatosis Hammer toes of both feet Comprehensive diabetic foot examination, type 2 DM, encounter for (HCC) Type II or unspecified type diabetes mellitus without mention of complication, not stated as uncontrolled Type 2 diabetes mellitus with diabetic neuropathy, without long-term current use of insulin (HCC) Onychocryptosis Ingrowing nail Pain in toe of right foot Pain in limb Pain in toe of left foot Pain in limb [facility] Diagnosis SOB (shortness of breath)- Primary Shortness of breath [facility] Diagnosis Seasonal allergies Allergic rhinitis, cause unspecified [facility] Diagnosis Migraine without aura and without status migrainosus, not intractable- Primary Migraine without aura, without mention of intractable migraine without mention of status migrainosus [facility] Diagnosis Pure hypercholesterolemia Essential hypertension Unspecified essential hypertension [facility]* Diagnosis Type 2 diabetes mellitus with diabetic polyneuropathy, without long-term current use of insulin (HCC)- Primary Diabetic polyneuropathy associated with type 2 diabetes mellitus (HCC) Essential hypertension Unspecified essential hypertension Pure hypercholesterolemia Postsurgical hypothyroidism Celiac disease Eczema, unspecified type Inflammatory arthritis- Primary Unspecified inflammatory polyarthropathy Fibromyalgia Mylagia and myositis, unspecified Encounter for long-term (current) use of medications Encounter for long-term (current) use of other medications [facility] Diagnosis Inflammatory arthritis- Primary Unspecified inflammatory polyarthropathy Fibromyalgia Mylagia and myositis, unspecified Encounter for long-term (current) use of medications Encounter for long-term (current) use of other medications Neck pain Cervicalgia [facility] Diagnosis Seasonal allergies Allergic rhinitis, cause unspecified [facility] Diagnosis Spinal stenosis of cervical region- Primary Spinal stenosis in cervical region Neck pain Cervicalgia [facility] Diagnosis Hirsutism- Primary Symptomatic menopausal or female climacteric states Genitourinary syndrome of menopause Diabetic polyneuropathy associated with type 2 diabetes mellitus (HCC) Migraine with aura and without status migrainosus, not intractable Migraine with aura, without mention of intractable migraine without mention of status migrainosus Endometriosis Endometriosis, site unspecified [facility] Diagnosis Postsurgical hypothyroidism- Primary Excessive hair growth Hirsutism Hirsutism documented in this [facility] Diagnosis Pain, dental- Primary Unspecified disorder of the teeth and supporting structures Jaw pain [facility] Diagnosis Stress reaction- Primary Unspecified acute reaction to stress [facility] Diagnosis Essential hypertension- Primary Unspecified essential hypertension Encounter for screening mammogram for breast cancer Type 2 diabetes mellitus with diabetic polyneuropathy, without long-term current use of insulin (HCC) Diabetic polyneuropathy associated with type 2 diabetes mellitus (HCC) Postsurgical hypothyroidism [facility] Diagnosis Spinal stenosis in cervical region- Primary Bladder dysfunction Other functional disorder of bladder Balance disorder Other symptoms involving nervous and musculoskeletal systems Mixed stress and urge urinary incontinence Mixed incontinence urge and stress (male)(female) Spinal stenosis of cervical region Spinal stenosis in cervical region [facility] Diagnosis Migraine without aura and without status migrainosus, not intractable- Primary Migraine without aura, without mention of intractable migraine without mention of status migrainosus [facility] Diagnosis Seasonal allergies Allergic rhinitis, cause unspecified [facility] Diagnosis Spinal stenosis in cervical region- Primary Bladder dysfunction Other functional disorder of bladder Balance disorder Other symptoms involving nervous and musculoskeletal systems Degenerative disc disease, cervical Degeneration of cervical intervertebral disc [facility] Diagnosis Inflammatory arthritis- Primary Unspecified inflammatory polyarthropathy [facility] Diagnosis Inflammatory arthritis Unspecified inflammatory polyarthropathy [facility] Diagnosis Pure hypercholesterolemia [facility] Diagnosis OPENED IN ERROR- Primary To allow closing an encounter opened in error (used in SmartSet) [facility] Diagnosis Inflammatory arthritis Unspecified inflammatory polyarthropathy [facility] Diagnosis Verruca vulgaris Viral warts, unspecified [facility]* Diagnosis Fibromyalgia Mylagia and myositis, unspecified [facility] Diagnosis Chronic pain syndrome- Primary Fibromyalgia Mylagia and myositis, unspecified Myalgia Mylagia and myositis, unspecified Pain in joint, multiple sites Displacement of cervical intervertebral disc without myelopathy DDD (degenerative disc disease), cervical Degeneration of cervical intervertebral disc [facility] Diagnosis Postsurgical hypothyroidism Dysphagia, unspecified type Change in voice Other voice and resonance disorders [facility] Diagnosis Spinal stenosis in cervical region Bladder dysfunction Other functional disorder of bladder Balance disorder Other symptoms involving nervous and musculoskeletal systems Mixed stress and urge urinary incontinence Mixed incontinence urge and stress (male)(female) Spinal stenosis of cervical region Spinal stenosis in cervical region [facility] Diagnosis Type 2 diabetes mellitus with diabetic polyneuropathy, without long-term current use of insulin (HCC)- Primary Postsurgical hypothyroidism Anxiety Anxiety state, unspecified [facility] Diagnosis Encounter for long-term (current) use of high-risk medication- Primary Encounter for long-term (current) use of other medications Type 2 diabetes mellitus without retinopathy (HCC) Type II or unspecified type diabetes mellitus without mention of complication, not stated as uncontrolled [facility] Diagnosis Seasonal allergies Allergic rhinitis, cause unspecified documented in this encounter [facility] for referral (narrative)* Diagnostic Procedure Only (Routine) - Closed Specialty Diagnoses / Procedures Referred By Contac t Referred To Contact [facility] IM[facility] Diagnoses Encounter for screening mammogram for breast cancer Procedures MARCO A SCREENING SCREENING MAMMOGRAPHY BI 2-VIEW BREAST INC CAD Mario John MD [address] [place] [address] [facility] [address] [place] [address] Referral ID Status Reason Start Date Expiration Date V isits Requested Visits Authorized [id number] Closed Auto-Generate d Referral 12/22/2021 01/21/2023 1 1 [facility] for referral (narrative)* Diagnostic Procedure Only (Routine) - Authorized Specialty Diagnoses / Procedures Referred By Contac t Referred To Contact BR IMAGING Diagnoses Abnormal mammogram Procedures US BREAST LTD LT US BREAST UNI REAL TIME WITH IMAGE LIMITED Marilia Wagner APRN.[employer] [address] [place] [address] [facility] [address] [address] Referral ID Status Reason Start Date Expiration Date Visits Requested Visits Authorized [id number] Authorized Auto-Generat ed Referral 02/24/2022 03/26/2023 1 1 * Diagnostic Procedure Only (Routine) - Authorized Specialty Diagnoses / Procedures Referred By Contac t Referred To Contact [facility] Diagnoses Abnormal mammogram Procedures US BREAST LTD RT US BREAST UNI REAL TIME WITH IMAGE LIMITED Marilia Wagner APRN.[employer] SUPER[employer]OR [address] [place] [address] [facility] [address] [place] [address] Referral ID Status Reason Start Date Expiration Date Visits Requested Visits Authorized [id number] Authorized Auto-Generat ed Referral 02/24/2022 03/26/2023 1 1 * Diagnostic Procedure Only (Routine) - Authorized Specialty Diagnoses / Procedures Referred By Contac t Referred To Contact BR IMAGING Diagnoses Abnormal mammogram Procedures MARCO A DIAGNOSTIC BILAT DIAGNOSTIC MAMMOGRAPHY COMPUTER-AIDED DETCJ BI Marilia Wagner APRN.[employer] SUPER[employer] [address] [place] [address] [facility] [address] [place] [address] Referral ID Status Reason Start Date Expiration Date Visits Requested Visits Authorized [id number] Authorized Auto-Generat ed Referral 02/24/2022 03/26/2023 1 1 [facility] for referral (narrative)* Diagnostic Procedure Only (Routine) - Pending Review Specialty Diagnoses / Procedures Referred By Contac t Referred To Contact [facility] IMAGING Diagnoses Encounter for screening mammogram for breast cancer Procedures MARCO A SCREENING W DEBBY SCREENING DIGITAL BREAST TOMOSYNTHESIS BI SCREENING MAMMOGRAPHY BI 2-VIEW BREAST INC Mario Pang MD [address] [place] [address] [facility] [address] [place] [address] Referral ID Status Reason Start Date Expiration Date Visits Requested Visits Authorized [id number] Pending Review Auto-Generat ed Referral 03/01/2023 03/30/2024 1 1 [facility] for referral (narrative)* - Authorized Specialty Diagnoses / Procedures Referred By Contac t Referred To Contact Diagnoses Spinal stenosis in cervical region Balance disorder Degenerative disc disease, cervical Procedures CONSULT TO SPINE SURGERY [place], [address] [place] [id number] Referral ID Status Reason Start Date Expiration Date V isits Requested Visits Authorized [id number] Authorized 04/22/2023 07/21/2023 1 1 [facility] for referral (narrative)* Diagnostic Procedure Only (Routine) - Closed Specialty Diagnoses / Procedures Referred By Contac t Referred To Contact US IMAGING Diagnoses Postsurgical hypothyroidism Dysphagia, unspecified type Change in voice Procedures US THYROID/PARATHYROID US SOFT TISSUE HEAD & NECK REAL TIME IMGE Sanam Marie APRN.[employer]OR [address] [place] [address] [place] [address] Referral ID Status Reason Start Date Expiration Date V isits Requested Visits Authorized [id number] Closed Auto-Generate d Referral 09/15/2022 10/15/2023 1 1 [facility] for visit Narrative* Diagnostic Procedure Only (Routine) - Closed Specialty Diagnoses / Procedures Referred By Contac t Referred To Contact US IMAGING Diagnoses Postsurgical hypothyroidism Dysphagia, unspecified type Change in voice Procedures US THYROID/PARATHYROID US SOFT TISSUE HEAD & NECK REAL TIME IMGE Sanam Marie APRN.[employer] SUPER[employer] [address] [place] [address] [place] [address] Referral ID Status Reason Start Date Expiration Date V isits Requested Visits Authorized [id number] Closed Auto-Generate d Referral 09/15/2022 10/15/2023 1 1 [facility] Summary Purpose Family History No Family History Records FoundNo Family History Records FoundNo Family History Records FoundNo Family History Records FoundNo Family History Records Found Advance Directives No Advanced Directives Records FoundDocuments on File Type Date Recorded Patient Intelligence Director Expl anation Advance Directive(s) Advance Directive(s) 12/05/2021 9:51 AM Advance Directive(s) 09/05/2021 6:01 AM Advance Directive(s) 08/28/2021 12:40 PM Advance Directive(s) 04/07/2021 7:40 AM Advance Directive(s) 07/08/2020 5:15 PM Advance Directive(s) 05/18/2018 8:10 AM Advance Directive(s) 12/18/2017 12:04 PM Documents on File Type Date Recorded Patient Intelligence Director Expl anation Advance Directive(s) Advance Directive(s) 12/05/2021 9:51 AM Advance Directive(s) 09/05/2021 6:01 AM Advance Directive(s) 08/28/2021 12:40 PM Advance Directive(s) 04/07/2021 7:40 AM Advance Directive(s) 07/08/2020 5:15 PM Advance Directive(s) 05/18/2018 8:10 AM Advance Directive(s) 12/18/2017 12:04 PM Reason for Referral Specialty Diagnoses / Procedures Referred By Jack t Referred To Contact Ophthalmology Diagnoses Encounter for long-term (current) use of medications Procedures CONSULT TO OPHTHALMOLOGY OFFICE/OUTPATIENT [facility] 60-74 MINUTES Shalom Garza APRN.HAMLET [address] [place] [address] Referral ID Status Reason Start Date Expiration Date Visits Requested Visits Authorized [id number] Authorized PCP Requested Referral 02/03/2022 02/03/2023 1 1 Specialty Diagnoses / Procedures Referred By Contmarkie t Referred To Contact Diagnoses [place] [address] [place] [address] Referral ID Status Reason Start Date Expiration Date Visits Re quested Visits Authorized [id number] Closed 1 1 Specialty Diagnoses / Procedures Referred By Contac t Referred To Contact Ent - Otolaryngology Diagnoses Pain of nose Procedures CONSULT TO ENT OFFICE/OUTPATIENT [facility] 60-74 MINUTES Eugenie Kahn, ORDNANCE TECHNICIAN.[employer] SUPERVISOR [address] [place] [address] Referral ID Status Reason Start Date Expiration Date Visits Requested Visits Authorized [id number] Authorized PCP Requested Referral 2 08/06/2023 1 1 Specialty Diagnoses / Procedures Referred By Contac t Referred To Contact Endocrinology Diagnoses Excessive hair growth Procedures CONSULT TO ENDOCRINOLOGY OFFICE/OUTPATIENT [facility] 60-74 MINUTES Eugenie Kahn, ORDNANCE TECHNICIAN.[employer] SUPERVISOR [address] [place] [address] Referral ID Status Reason Start Date Expiration Date Visits Requested Visits Authorized [id number] Authorized PCP Requested Referral 2 08/06/2023 1 1 Specialty Diagnoses / Procedures Referred By Contac t Referred To Contact Ent - Otolaryngology Diagnoses Other cough Dysphagia, unspecified type Change in voice Procedures CONSULT TO ENT OFFICE/OUTPATIENT [facility] 60-74 MINUTES Sanam Bon[place], ORDNANCE TECHNICIAN.[employer] SUPERVISOR [address] [id number] Referral ID Status Reason Start Date Expiration Date Visits Requested Visits Authorized [id number] Authorized PCP Requested Referral 09/15/2022 09/15/2023 1 1 Specialty Diagnoses / Procedures Referred By Contac t Referred To Contact US IMAGING Diagnoses Postsurgical hypothyroidism Dysphagia, unspecified type Change in voice Procedures US THYROID/PARATHYROID US SOFT TISSUE HEAD & NECK REAL TIME IMGE DOCM Sanam Bonner, POPEYE.[employer] SUPERVISOR [address] [place] [place] [id number] [facility] Referral ID Status Reason Start Date Expiration Date Visits Requested Visits Authorized [id number] Authorized Auto-Generat ed Referral 09/15/2022 10/15/2023 1 1 Specialty Diagnoses / Procedures Referred By Contac t Referred To Contact Marilia Wagner APRN.[employer] SUPERVISOR [address] [place] [address] Referral ID Status Reason Start Date Expiration Date Visits Re quested Visits Authorized [id number] Closed 1 1 Specialty Diagnoses / Procedures Referred By Contac t Referred To Contact Mario John MD [address] [place] [address] Referral ID Status Reason Start Date Expiration Date V isits Requested Visits Authorized [id number] Pending Review 1 1 Specialty Diagnoses / Procedures Referred By Contac t Referred To Contact Spine [place] Diagnoses Neck pain Procedures CONSULT TO [facility] OFFICE/OUTPATIENT [facility] 60-74 MINUTES Shalom Garza, ORDNANCE TECHNICIAN.W[employer] SUPERVISOR [address] [place] [address] Referral ID Status Reason Start Date Expiration Date Visits Requested Visits Authorized [id number] Authorized PCP Requested Referral 11/03/2022 11/03/2023 1 1 Specialty Diagnoses / Procedures Referred By Contac t Referred To Contact MR IMAGING Diagnoses Spinal stenosis of cervical region Procedures MRI CERVICAL SPINE WO IVCON MRI SPINAL CANAL CERVICAL W/O CONTRAST Kyung Cameron PA-C [address] [address] [place] [id number] [facility] Referral ID Status Reason Start Date Expiration Date Visits Requested Visits Authorized [id number] Pending Review Auto-Generat ed Referral 11/23/2022 12/23/2023 1 1 Specialty Diagnoses / Procedures Referred By Contac t Referred To Contact MR IMAGING Diagnoses Spinal stenosis in cervical region Bladder dysfunction Balance disorder Mixed stress and urge urinary incontinence Spinal stenosis of cervical region Procedures MRI CERVICAL SPINE WO IVCON MRI SPINAL CANAL CERVICAL [place] [address] [place] [address] Mr Imaging Referral ID Status Reason Start Date Expiration Date Visits Requested Visits Authorized [id number] Pending Review Auto-Generat ed Referral 03/12/2023 04/10/2024 1 1 Specialty Diagnoses / Procedures Referred By Contac t Referred To Contact MR IMAGING Diagnoses Spinal stenosis in cervical region Bladder dysfunction Balance disorder Mixed stress and urge urinary incontinence Spinal stenosis of cervical region Procedures MRI CERVICAL SPINE WO IVCON MRI SPINAL CANAL CERVICAL W/[place] [address] [place] [address] [place] [address] Referral ID Status Reason Start Date Expiration Date V isits Requested Visits Authorized [id number] Closed Auto-Generat ed Referral Patient Cleared - Admin/Chairm an/Director advise to proceed or did not respond 04/07/2023 06/06/2023 1 1 Medications Administered Section Active Administered Medications - up to 3 most recent administrations Medication Order MAR Action Action Date Dose Rate Site tropicamide 1 % 1 Drop (MYDRIACYL) 1 Drop, BOTH EYES, DIRECTED, Starting on Wed09/07/23 at 1100, Until Wed09/07/23 at 2259, Administer for dilation Given 09/07/2023 10:36 AM EST 1 Drop Additional Source Comments INFORMATION SOURCE (unrecogn ized section and content) DATE CREATED AUTHOR AUTHOR'S ORGANIZ ATION 07/21/2019 [facility] DATE CREATED AUTHOR AUTHOR'S ORGANIZ ATION 10/01/2022 [facility] DATE CREATED AUTHOR AUTHOR'S ORGANIZ ATION 11/08/2023 [facility] DATE CREATED AUTHOR AUTHOR'S ORGANIZ ATION 11/09/2023 [facility] Source Comments (unrecognize d section and content) In the event this informatio n is protected by the Federal Confidentiality of Alcohol and Drug Abuse Patient Records regulations: The Federal rules restrict any use of the information to criminally investigate or prosecute any alcohol or drug abuse patient.[facility] event this information is protected by the Federal Confidentiality of Alcohol and Drug Abuse Patient Records regulations: The Federal rules restrict any use of the information to criminally investigate or prosecute any alcohol or drug abuse patient.[facility] the event this information is protected by the Federal Confidentiality of Alcohol and Drug Abuse Patient Records regulations: The Federal rules restrict any use of the information to criminally investigate or prosecute any alcohol or drug abuse patient.[facility] the event this information is protected by the Federal Confidentiality of Alcohol and Drug Abuse Patient Records regulations: The Federal rules restrict any use of the information to criminally investigate or prosecute any alcohol or drug abuse patient.[facility] the event this information is protected by the Federal Confidentiality of Alcohol and Drug Abuse Patient Records regulations: The Federal rules restrict any use of the information to criminally investigate or prosecute any alcohol or drug abuse patient.[facility] the event this information is protected by the Federal Confidentiality of Alcohol and Drug Abuse Patient Records regulations: The Federal rules restrict any use of the information to criminally investigate or prosecute any alcohol or drug abuse patient.[facility] the event this information is protected by the Federal Confidentiality of Alcohol and Drug Abuse Patient Records regulations: The Federal rules restrict any use of the information to criminally investigate or prosecute any alcohol or drug abuse patient.[facility] the event this information is protected by the Federal Confidentiality of Alcohol and Drug Abuse Patient Records regulations: The Federal rules restrict any use of the information to criminally investigate or prosecute any alcohol or drug abuse patient.[facility] the event this information is protected by the Federal Confidentiality of Alcohol and Drug Abuse Patient Records regulations: The Federal rules restrict any use of the information to criminally investigate or prosecute any alcohol or drug abuse patient.[facility] the event this information is protected by the Federal Confidentiality of Alcohol and Drug Abuse Patient Records regulations: The Federal rules restrict any use of the information to criminally investigate or prosecute any alcohol or drug abuse patient.[facility] the event this information is protected by the Federal Confidentiality of Alcohol and Drug Abuse Patient Records regulations: The Federal rules restrict any use of the information to criminally investigate or prosecute any alcohol or drug abuse patient.[facility] the event this information is protected by the Federal Confidentiality of Alcohol and Drug Abuse Patient Records regulations: The Federal rules restrict any use of the information to criminally investigate or prosecute any alcohol or drug abuse patient.[facility] the event this information is protected by the Federal Confidentiality of Alcohol and Drug Abuse Patient Records regulations: The Federal rules restrict any use of the information to criminally investigate or prosecute any alcohol or drug abuse patient.[facility] the event this information is protected by the Federal Confidentiality of Alcohol and Drug Abuse Patient Records regulations: The Federal rules restrict any use of the information to criminally investigate or prosecute any alcohol or drug abuse patient.[facility] the event this information is protected by the Federal Confidentiality of Alcohol and Drug Abuse Patient Records regulations: The Federal rules restrict any use of the information to criminally investigate or prosecute any alcohol or drug abuse patient.[facility] the event this information is protected by the Federal Confidentiality of Alcohol and Drug Abuse Patient Records regulations: The Federal rules restrict any use of the information to criminally investigate or prosecute any alcohol or drug abuse patient.[facility] the event this information is protected by the Federal Confidentiality of Alcohol and Drug Abuse Patient Records regulations: The Federal rules restrict any use of the information to criminally investigate or prosecute any alcohol or drug abuse patient.[facility] the event this information is protected by the Federal Confidentiality of Alcohol and Drug Abuse Patient Records regulations: The Federal rules restrict any use of the information to criminally investigate or prosecute any alcohol or drug abuse patient.[facility] the event this information is protected by the Federal Confidentiality of Alcohol and Drug Abuse Patient Records regulations: The Federal rules restrict any use of the information to criminally investigate or prosecute any alcohol or drug abuse patient.[facility] the event this information is protected by the Federal Confidentiality of Alcohol and Drug Abuse Patient Records regulations: The Federal rules restrict any use of the information to criminally investigate or prosecute any alcohol or drug abuse patient.[facility] the event this information is protected by the Federal Confidentiality of Alcohol and Drug Abuse Patient Records regulations: The Federal rules restrict any use of the information to criminally investigate or prosecute any alcohol or drug abuse patient.[facility] the event this information is protected by the Federal Confidentiality of Alcohol and Drug Abuse Patient Records regulations: The Federal rules restrict any use of the information to criminally investigate or prosecute any alcohol or drug abuse patient.[facility] the event this information is protected by the Federal Confidentiality of Alcohol and Drug Abuse Patient Records regulations: The Federal rules restrict any use of the information to criminally investigate or prosecute any alcohol or drug abuse patient.[facility] the event this information is protected by the Federal Confidentiality of Alcohol and Drug Abuse Patient Records regulations: The Federal rules restrict any use of the information to criminally investigate or prosecute any alcohol or drug abuse patient.[facility] the event this information is protected by the Federal Confidentiality of Alcohol and Drug Abuse Patient Records regulations: The Federal rules restrict any use of the information to criminally investigate or prosecute any alcohol or drug abuse patient.[facility] the event this information is protected by the Federal Confidentiality of Alcohol and Drug Abuse Patient Records regulations: The Federal rules restrict any use of the information to criminally investigate or prosecute any alcohol or drug abuse patient.[facility] HospitalIn the event this information is protected by the Federal Confidentiality of Alcohol and Drug Abuse Patient Records regulations: The Federal rules restrict any use of the information to criminally investigate or prosecute any alcohol or drug abuse patient.[facility] HospitalIn the event this information is protected by the Federal Confidentiality of Alcohol and Drug Abuse Patient Records regulations: The Federal rules restrict any use of the information to criminally investigate or prosecute any alcohol or drug abuse patient.[facility] HospitalIn the event this information is protected by the Federal Confidentiality of Alcohol and Drug Abuse Patient Records regulations: The Federal rules restrict any use of the information to criminally investigate or prosecute any alcohol or drug abuse patient.[facility] HospitalIn the event this information is protected by the Federal Confidentiality of Alcohol and Drug Abuse Patient Records regulations: The Federal rules restrict any use of the information to criminally investigate or prosecute any alcohol or drug abuse patient.[facility] HospitalIn the event this information is protected by the Federal Confidentiality of Alcohol and Drug Abuse Patient Records regulations: The Federal rules restrict any use of the information to criminally investigate or prosecute any alcohol or drug abuse patient.[facility] HospitalIn the event this information is protected by the Federal Confidentiality of Alcohol and Drug Abuse Patient Records regulations: The Federal rules restrict any use of the information to criminally investigate or prosecute any alcohol or drug abuse patient.[facility] HospitalIn the event this information is protected by the Federal Confidentiality of Alcohol and Drug Abuse Patient Records regulations: The Federal rules restrict any use of the information to criminally investigate or prosecute any alcohol or drug abuse patient.[facility] HospitalIn the event this information is protected by the Federal Confidentiality of Alcohol and Drug Abuse Patient Records regulations: The Federal rules restrict any use of the information to criminally investigate or prosecute any alcohol or drug abuse patient.[facility] HospitalIn the event this information is protected by the Federal Confidentiality of Alcohol and Drug Abuse Patient Records regulations: The Federal rules restrict any use of the information to criminally investigate or prosecute any alcohol or drug abuse patient.[facility] HospitalIn the event this information is protected by the Federal Confidentiality of Alcohol and Drug Abuse Patient Records regulations: The Federal rules restrict any use of the information to criminally investigate or prosecute any alcohol or drug abuse patient.[facility] HospitalIn the event this information is protected by the Federal Confidentiality of Alcohol and Drug Abuse Patient Records regulations: The Federal rules restrict any use of the information to criminally investigate or prosecute any alcohol or drug abuse patient.[facility] HospitalIn the event this information is protected by the Federal Confidentiality of Alcohol and Drug Abuse Patient Records regulations: The Federal rules restrict any use of the information to criminally investigate or prosecute any alcohol or drug abuse patient.[facility] HospitalIn the event this information is protected by the Federal Confidentiality of Alcohol and Drug Abuse Patient Records regulations: The Federal rules restrict any use of the information to criminally investigate or prosecute any alcohol or drug abuse patient.[facility] HospitalIn the event this information is protected by the Federal Confidentiality of Alcohol and Drug Abuse Patient Records regulations: The Federal rules restrict any use of the information to criminally investigate or prosecute any alcohol or drug abuse patient.[facility] HospitalIn the event this information is protected by the Federal Confidentiality of Alcohol and Drug Abuse Patient Records regulations: The Federal rules restrict any use of the information to criminally investigate or prosecute any alcohol or drug abuse patient.[facility] HospitalIn the event this information is protected by the Federal Confidentiality of Alcohol and Drug Abuse Patient Records regulations: The Federal rules restrict any use of the information to criminally investigate or prosecute any alcohol or drug abuse patient.[facility] HospitalIn the event this information is protected by the Federal Confidentiality of Alcohol and Drug Abuse Patient Records regulations: The Federal rules restrict any use of the information to criminally investigate or prosecute any alcohol or drug abuse patient.[facility] HospitalIn the event this information is protected by the Federal Confidentiality of Alcohol and Drug Abuse Patient Records regulations: The Federal rules restrict any use of the information to criminally investigate or prosecute any alcohol or drug abuse patient.[facility] HospitalIn the event this information is protected by the Federal Confidentiality of Alcohol and Drug Abuse Patient Records regulations: The Federal rules restrict any use of the information to criminally investigate or prosecute any alcohol or drug abuse patient.[facility] HospitalIn the event this information is protected by the Federal Confidentiality of Alcohol and Drug Abuse Patient Records regulations: The Federal rules restrict any use of the information to criminally investigate or prosecute any alcohol or drug abuse patient.[facility] HospitalIn the event this information is protected by the Federal Confidentiality of Alcohol and Drug Abuse Patient Records regulations: The Federal rules restrict any use of the information to criminally investigate or prosecute any alcohol or drug abuse patient.[facility] HospitalIn the event this information is protected by the Federal Confidentiality of Alcohol and Drug Abuse Patient Records regulations: The Federal rules restrict any use of the information to criminally investigate or prosecute any alcohol or drug abuse patient.[facility] HospitalIn the event this information is protected by the Federal Confidentiality of Alcohol and Drug Abuse Patient Records regulations: The Federal rules restrict any use of the information to criminally investigate or prosecute any alcohol or drug abuse patient.[facility] HospitalIn the event this information is protected by the Federal Confidentiality of Alcohol and Drug Abuse Patient Records regulations: The Federal rules restrict any use of the information to criminally investigate or prosecute any alcohol or drug abuse patient.[facility] HospitalIn the event this information is protected by the Federal Confidentiality of Alcohol and Drug Abuse Patient Records regulations: The Federal rules restrict any use of the information to criminally investigate or prosecute any alcohol or drug abuse patient.[facility] HospitalIn the event this information is protected by the Federal Confidentiality of Alcohol and Drug Abuse Patient Records regulations: The Federal rules restrict any use of the information to criminally investigate or prosecute any alcohol or drug abuse patient.[facility] HospitalIn the event this information is protected by the Federal Confidentiality of Alcohol and Drug Abuse Patient Records regulations: The Federal rules restrict any use of the information to criminally investigate or prosecute any alcohol or drug abuse patient.[facility] HospitalIn the event this information is protected by the Federal Confidentiality of Alcohol and Drug Abuse Patient Records regulations: The Federal rules restrict any use of the information to criminally investigate or prosecute any alcohol or drug abuse patient.[facility] HospitalIn the event this information is protected by the Federal Confidentiality of Alcohol and Drug Abuse Patient Records regulations: The Federal rules restrict any use of the information to criminally investigate or prosecute any alcohol or drug abuse patient.[facility] HospitalIn the event this information is protected by the Federal Confidentiality of Alcohol and Drug Abuse Patient Records regulations: The Federal rules restrict any use of the information to criminally investigate or prosecute any alcohol or drug abuse patient.[facility] HospitalIn the event this information is protected by the Federal Confidentiality of Alcohol and Drug Abuse Patient Records regulations: The Federal rules restrict any use of the information to criminally investigate or prosecute any alcohol or drug abuse patient.[facility] HospitalIn the event this information is protected by the Federal Confidentiality of Alcohol and Drug Abuse Patient Records regulations: The Federal rules restrict any use of the information to criminally investigate or prosecute any alcohol or drug abuse patient.[facility] HospitalIn the event this information is protected by the Federal Confidentiality of Alcohol and Drug Abuse Patient Records regulations: The Federal rules restrict any use of the information to criminally investigate or prosecute any alcohol or drug abuse patient.[facility] HospitalIn the event this information is protected by the Federal Confidentiality of Alcohol and Drug Abuse Patient Records regulations: The Federal rules restrict any use of the information to criminally investigate or prosecute any alcohol or drug abuse patient.[facility] HospitalIn the event this information is protected by the Federal Confidentiality of Alcohol and Drug Abuse Patient Records regulations: The Federal rules restrict any use of the information to criminally investigate or prosecute any alcohol or drug abuse patient.[facility] HospitalIn the event this information is protected by the Federal Confidentiality of Alcohol and Drug Abuse Patient Records regulations: The Federal rules restrict any use of the information to criminally investigate or prosecute any alcohol or drug abuse patient.[facility] HospitalIn the event this information is protected by the Federal Confidentiality of Alcohol and Drug Abuse Patient Records regulations: The Federal rules restrict any use of the information to criminally investigate or prosecute any alcohol or drug abuse patient.[facility] HospitalIn the event this information is protected by the Federal Confidentiality of Alcohol and Drug Abuse Patient Records regulations: The Federal rules restrict any use of the information to criminally investigate or prosecute any alcohol or drug abuse patient.[facility] HospitalIn the event this information is protected by the Federal Confidentiality of Alcohol and Drug Abuse Patient Records regulations: The Federal rules restrict any use of the information to criminally investigate or prosecute any alcohol or drug abuse patient.[facility] HospitalIn the event this information is protected by the Federal Confidentiality of Alcohol and Drug Abuse Patient Records regulations: The Federal rules restrict any use of the information to criminally investigate or prosecute any alcohol or drug abuse patient.[facility] HospitalIn the event this information is protected by the Federal Confidentiality of Alcohol and Drug Abuse Patient Records regulations: The Federal rules restrict any use of the information to criminally investigate or prosecute any alcohol or drug abuse patient.[facility] HospitalIn the event this information is protected by the Federal Confidentiality of Alcohol and Drug Abuse Patient Records regulations: The Federal rules restrict any use of the information to criminally investigate or prosecute any alcohol or drug abuse patient.[facility] HospitalIn the event this information is protected by the Federal Confidentiality of Alcohol and Drug Abuse Patient Records regulations: The Federal rules restrict any use of the information to criminally investigate or prosecute any alcohol or drug abuse patient.[facility] HospitalIn the event this information is protected by the Federal Confidentiality of Alcohol and Drug Abuse Patient Records regulations: The Federal rules restrict any use of the information to criminally investigate or prosecute any alcohol or drug abuse patient.[facility] HospitalIn the event this information is protected by the Federal Confidentiality of Alcohol and Drug Abuse Patient Records regulations: The Federal rules restrict any use of the information to criminally investigate or prosecute any alcohol or drug abuse patient.[facility] HospitalIn the event this information is protected by the Federal Confidentiality of Alcohol and Drug Abuse Patient Records regulations: The Federal rules restrict any use of the information to criminally investigate or prosecute any alcohol or drug abuse patient.[facility] HospitalIn the event this information is protected by the Federal Confidentiality of Alcohol and Drug Abuse Patient Records regulations: The Federal rules restrict any use of the information to criminally investigate or prosecute any alcohol or drug abuse patient.[facility] HospitalIn the event this information is protected by the Federal Confidentiality of Alcohol and Drug Abuse Patient Records regulations: The Federal rules restrict any use of the information to criminally investigate or prosecute any alcohol or drug abuse patient.[facility] HospitalIn the event this information is protected by the Federal Confidentiality of Alcohol and Drug Abuse Patient Records regulations: The Federal rules restrict any use of the information to criminally investigate or prosecute any alcohol or drug abuse patient.[facility] HospitalIn the event this information is protected by the Federal Confidentiality of Alcohol and Drug Abuse Patient Records regulations: The Federal rules restrict any use of the information to criminally investigate or prosecute any alcohol or drug abuse patient.[facility] HospitalIn the event this information is protected by the Federal Confidentiality of Alcohol and Drug Abuse Patient Records regulations: The Federal rules restrict any use of the information to criminally investigate or prosecute any alcohol or drug abuse patient.[facility] HospitalIn the event this information is protected by the Federal Confidentiality of Alcohol and Drug Abuse Patient Records regulations: The Federal rules restrict any use of the information to criminally investigate or prosecute any alcohol or drug abuse patient.[facility] HospitalIn the event this information is protected by the Federal Confidentiality of Alcohol and Drug Abuse Patient Records regulations: The Federal rules restrict any use of the information to criminally investigate or prosecute any alcohol or drug abuse patient.[facility] HospitalIn the event this information is protected by the Federal Confidentiality of Alcohol and Drug Abuse Patient Records regulations: The Federal rules restrict any use of the information to criminally investigate or prosecute any alcohol or drug abuse patient.[facility] HospitalIn the event this information is protected by the Federal Confidentiality of Alcohol and Drug Abuse Patient Records regulations: The Federal rules restrict any use of the information to criminally investigate or prosecute any alcohol or drug abuse patient.[facility] HospitalIn the event this information is protected by the Federal Confidentiality of Alcohol and Drug Abuse Patient Records regulations: The Federal rules restrict any use of the information to criminally investigate or prosecute any alcohol or drug abuse patient.[facility] HospitalIn the event this information is protected by the Federal Confidentiality of Alcohol and Drug Abuse Patient Records regulations: The Federal rules restrict any use of the information to criminally investigate or prosecute any alcohol or drug abuse patient.[facility] HospitalIn the event this information is protected by the Federal Confidentiality of Alcohol and Drug Abuse Patient Records regulations: The Federal rules restrict any use of the information to criminally investigate or prosecute any alcohol or drug abuse patient.[facility] HospitalIn the event this information is protected by the Federal Confidentiality of Alcohol and Drug Abuse Patient Records regulations: The Federal rules restrict any use of the information to criminally investigate or prosecute any alcohol or drug abuse patient.[facility] HospitalIn the event this information is protected by the Federal Confidentiality of Alcohol and Drug Abuse Patient Records regulations: The Federal rules restrict any use of the information to criminally investigate or prosecute any alcohol or drug abuse patient.[facility] HospitalIn the event this information is protected by the Federal Confidentiality of Alcohol and Drug Abuse Patient Records regulations: The Federal rules restrict any use of the information to criminally investigate or prosecute any alcohol or drug abuse patient.[facility] HospitalIn the event this information is protected by the Federal Confidentiality of Alcohol and Drug Abuse Patient Records regulations: The Federal rules restrict any use of the information to criminally investigate or prosecute any alcohol or drug abuse patient.[facility] HospitalIn the event this information is protected by the Federal Confidentiality of Alcohol and Drug Abuse Patient Records regulations: The Federal rules restrict any use of the information to criminally investigate or prosecute any alcohol or drug abuse patient.[facility] HospitalIn the event this information is protected by the Federal Confidentiality of Alcohol and Drug Abuse Patient Records regulations: The Federal rules restrict any use of the information to criminally investigate or prosecute any alcohol or drug abuse patient.[facility] HospitalIn the event this information is protected by the Federal Confidentiality of Alcohol and Drug Abuse Patient Records regulations: The Federal rules restrict any use of the information to criminally investigate or prosecute any alcohol or drug abuse patient.[facility] HospitalIn the event this information is protected by the Federal Confidentiality of Alcohol and Drug Abuse Patient Records regulations: The Federal rules restrict any use of the information to criminally investigate or prosecute any alcohol or drug abuse patient.[facility] HospitalIn the event this information is protected by the Federal Confidentiality of Alcohol and Drug Abuse Patient Records regulations: The Federal rules restrict any use of the information to criminally investigate or prosecute any alcohol or drug abuse patient.[facility] HospitalIn the event this information is protected by the Federal Confidentiality of Alcohol and Drug Abuse Patient Records regulations: The Federal rules restrict any use of the information to criminally investigate or prosecute any alcohol or drug abuse patient.[facility] HospitalIn the event this information is protected by the Federal Confidentiality of Alcohol and Drug Abuse Patient Records regulations: The Federal rules restrict any use of the information to criminally investigate or prosecute any alcohol or drug abuse patient.[facility] HospitalIn the event this information is protected by the Federal Confidentiality of Alcohol and Drug Abuse Patient Records regulations: The Federal rules restrict any use of the information to criminally investigate or prosecute any alcohol or drug abuse patient.[facility] HospitalIn the event this information is protected by the Federal Confidentiality of Alcohol and Drug Abuse Patient Records regulations: The Federal rules restrict any use of the information to criminally investigate or prosecute any alcohol or drug abuse patient.[facility] HospitalIn the event this information is protected by the Federal Confidentiality of Alcohol and Drug Abuse Patient Records regulations: The Federal rules restrict any use of the information to criminally investigate or prosecute any alcohol or drug abuse patient.[facility] HospitalIn the event this information is protected by the Federal Confidentiality of Alcohol and Drug Abuse Patient Records regulations: The Federal rules restrict any use of the information to criminally investigate or prosecute any alcohol or drug abuse patient.[facility] HospitalIn the event this information is protected by the Federal Confidentiality of Alcohol and Drug Abuse Patient Records regulations: The Federal rules restrict any use of the information to criminally investigate or prosecute any alcohol or drug abuse patient.[facility] HospitalIn the event this information is protected by the Federal Confidentiality of Alcohol and Drug Abuse Patient Records regulations: The Federal rules restrict any use of the information to criminally investigate or prosecute any alcohol or drug abuse patient.[facility] HospitalIn the event this information is protected by the Federal Confidentiality of Alcohol and Drug Abuse Patient Records regulations: The Federal rules restrict any use of the information to criminally investigate or prosecute any alcohol or drug abuse patient.[facility] HospitalIn the event this information is protected by the Federal Confidentiality of Alcohol and Drug Abuse Patient Records regulations: The Federal rules restrict any use of the information to criminally investigate or prosecute any alcohol or drug abuse patient.[facility] HospitalIn the event this information is protected by the Federal Confidentiality of Alcohol and Drug Abuse Patient Records regulations: The Federal rules restrict any use of the information to criminally investigate or prosecute any alcohol or drug abuse patient.[facility] Reason for Visit (unrecogniz ed section and content) Reason Comments Patient Question opht referral Reason Comments Abstract PLQ eye exam Reason Comments Refill Request Reason Comments Established Patient Post Op Reason Comments Radiology Mammogram Specialty Diagnoses / Procedures Referred By Contac t Referred To Contact [facility] Diagnoses Encounter for screening mammogram for breast cancer Procedures MARCO A SCREENING SCREENING MAMMOGRAPHY BI 2-VIEW BREAST INC Mario Pang MD [address] [place] [address] [facility] [place] [address] Referral ID Status Reason Start Date Expiration Date V isits Requested Visits Authorized [id number] Closed Auto-Generate d Referral 12/22/2021 01/21/2023 1 1 Reason Comments Results Reason Comments Medication Question Reason Comments Estrogen levels Reason Comments Wart finger Dermatitis face LESION, SKIN right thigh Reason Comments Medication Update Reason Comments Established Patient Follow Up Pain Reason Comments Appointment Reason Comments Results Reason Comments Established Patient Follow-Up Reason Comments Wart follow-up for wart o n the right middle finger Reason Comments Established Patient Reason Onset Date Comments Refill Request 05/01/2022 Reason Onset Date Comments Refill Request 05/19/2022 Reason Comments Medication Request Reason Comments Question Reason Comments Wart Follow-up Dermatitis Follow-up Reason Comments Follow Up Reason Comments Fibromyalgia Refill Request Reason Comments Wart Follow up Reason Comments New Patient Nasal surgery 2008 t [facility] - multiple issues since Specialty Diagnoses / Procedures Referred By Contac t Referred To Contact Ent - Otolaryngology Diagnoses Pain of nose Procedures CONSULT TO ENT OFFICE/OUTPATIENT [facility] 60-74 MINUTES Eugenie Kahn, ORDNANCE TECHNICIAN.WATER TREAT[employer] PLANT SUPERVISOR [address] [place] [address] Referral ID Status Reason Start Date Expiration Date V isits Requested Visits Authorized [id number] Closed PCP Requested Referral 08/06/2022 08/06/2023 1 1 Reason Comments Lab Orders Reason Comments Thyroid Problem Reason Comments Debridement of Nail Reason Comments Appointment I spoke with patient and she's just going to wait until December to see Dr. Vo. She's not going to take the sooner appt with you because she would have set up her transportation a week in advance.. Reason Comments Refill Request Reason Comments Medication Problem LEVOTHYROXINE Reason Comments Orders Nurse Triage Call Reason Comments Follow Up Reason Comments Established Patient 142/71 Reason Comments New Patient States neck pain jermain t radiates to both shoulders and arms. Neck Pain Pain (Shoulder Pain) Arm Pain Specialty Diagnoses / Procedures Referred By Contac t Referred To Contact Spine [place] Diagnoses Neck pain Procedures [facility]SULT [facility] OFFICE/OUTPATIENT [facility] 60-74 MINUTES Shalom Garza, ORDNANCE TECHNICIAN.W[employer] TREAT[employer] PLANT SUPERVISOR [address] [place] [address] Referral ID Status Reason Start Date Expiration Date V isits Requested Visits Authorized [id number] Closed PCP Requested Referral 11/03/2022 11/03/2023 1 1 Reason Comments Follow Up Excessive hair growt h Reason Comments Thyroid Problem Specialty Diagnoses / Procedures Referred By Contac t Referred To Contact Endocrinology Diagnoses Excessive hair growth Procedures CONSULT TO ENDOCRINOLOGY OFFICE/OUTPATIENT NEW HIGH MDM 60-74 MINUTES Eugenie Kahn, ORDNANCE TECHNICIAN.W[employer]AT[employer] PLANT SUPERVISOR [address] [place] [address] Referral ID Status Reason Start Date Expiration Date V isits Requested Visits Authorized [id number] Closed PCP Requested Referral 08/06/2022 08/06/2023 1 1 Reason Comments Pain Pt reported (LT) jaw pain, dental appointment scheduled. Reason Comments Neck Pain Pain today is 03/20 Reason Comments Follow Up Results - Mri Had mri cervical on 04/16/23 Neck Pain States neck pain 12/09 0 Reason Comments Patient Update Reason Onset Date Comments Refill Request 06/29/2023 Reason Comments Orders Reason Comments Yearly Exam Follow Up Pain Specialty Diagnoses / Procedures Referred By Jack collier Referred To Contact MR IMAGING Diagnoses Spinal stenosis in cervical region Bladder dysfunction Balance disorder Mixed stress and urge urinary incontinence Spinal stenosis of cervical region Procedures MRI CERVICAL SPINE WO IVCON MRI SPINAL CANAL CERVICAL W/[place] [address] [place] [id number] [place] [address] Referral ID Status Reason Start Date Expiration Date V isits Requested Visits Authorized [id number] Closed Auto-Generat ed Referral Patient Cleared - Admin/Chairm an/Director advise to proceed or did not respond 04/07/2023 06/06/2023 1 1 Reason Comments F/U 3 months Reason Comments Insurance Authorization Reason Comments Plaquenil Check Started approximatel y 6-8 months ago 300 MG PO Daily, approximate weight: 168 Diabetic Eye Exam Oral medication, no insulin Reason Comments Prior auth urgency; patient sick from no t having medication Medication Problem Care Teams (unrecognized sec tion and content) Environmental Lead Relationship Specialty Start Date End Date Mario John MD [address], [place] [id number] PCP - General Internal Medicine 08/01/17 Toni Johnson, DO [address] [id number] Neurology 09/23/16 Nyasia Anderson APRN.WATER TREATMENT PLANT SUPERVISOR [address] [facility] [place] [address] Pain Management 09/23/16 Shannan Raymond [address] [place] [address] Dermatology 09/23/16 Environmental Lead Relationship Specialty Start Date End Date Mario John MD [address] [place] [address] PCP - General Internal Medicine 08/01/17 Toni Johnson, DO [address] [address] Neurology 09/23/16 Nyasia Anderson APRN.W[employer]AT[employer]ANT SUPERVISOR [address] [place] [address] Pain Management 09/23/16 Shannan Raymond [address] [place] [address] Dermatology 09/23/16 Environmental Lead Relationship Specialty Start Date End Date Mario John MD [address] [place] [address] PCP - General Internal Medicine 08/01/17 Toni Johnson, DO [address] [address] Neurology 09/23/16 Nyasia Anderson APRN.WATER TREATMENT PLANT SUPERVISOR [address] [facility] [place] [address] Pain Management 09/23/16 Shannan Raymond [address] [place] [address] Dermatology 09/23/16 Environmental Lead Relationship Specialty Start Date End Date Mario John MD [address] [place] [facility] [address] PCP - General Internal Medicine 08/01/17 Toni Johnson, DO [address] [place] [address] Neurology 09/23/16 Nyasia Anderson, ORDNANCE TECHNICIAN.W[employer] T[employer]AT[employer] PL[employer] SUPERVISOR [address] [place] [address] Pain Management 09/23/16 Shannan Raymond [address] [place] [address] Dermatology 09/23/16 Environmental Lead Relationship Specialty Start Date End Date Mario John MD [address] [place] [address] PCP - General Internal Medicine 08/01/17 Toni Johnson, DO [address] [address] Neurology 09/23/16 Nyasia Anderson, ORDNANCE TECHNICIAN.W[employer]AT[employer] PLANT SUPERVISOR [address] [place] [address] Pain Management 09/23/16 Shannan Raymond [address] [place] [address] Dermatology 09/23/16 Environmental Lead Relationship Specialty Start Date End Date Mario John MD [address] [place] [address] PCP - General Internal Medicine 08/01/17 Toni Johnson, DO [address] [address] Neurology 09/23/16 Nyasia Anderson, ORDNANCE TECHNICIAN.W[employer]AT[employer] PLANT SUPERVISOR [address] [place] [address] Pain Management 09/23/16 Shannan Raymond [address] [place] [address] Dermatology 09/23/16 Environmental Lead Relationship Specialty Start Date End Date Mario John MD [address] [place] [address] PCP - General Internal Medicine 08/01/17 Toni Johnson, DO [address] [place] [address] Neurology 09/23/16 Nyasia Anderson APRN.WATER TREATMENT PLANT SUPERVISOR [address] [address] Pain Management 09/23/16 Shannan Raymond [address] [place] [address] Dermatology 09/23/16 Environmental Lead Relationship Specialty Start Date End Date WoodruffMario torres MD [address] [place] [address] PCP - General Internal Medicine 08/01/17 Toni Johnson, DO [address] [place] [address] Neurology 09/23/16 Nyasia Anderson, POPEYE.WATER TREATMENT PLANT SUPERVISOR [address] [place] [address] Pain Management 09/23/16 Shannan Raymond [address] [place] [address] Dermatology 09/23/16 Environmental Lead Relationship Specialty Start Date End Date Mario John MD [address] [place] [facility] [address] PCP - General Internal Medicine 08/01/17 Toni Johnson, DO [address] [place] [address] Neurology 09/23/16 Nyasia Anderson APRN.W[employer] T[employer]AT[employer] SUPERVISOR [address] [place] [address] Pain Management 09/23/16 Shannan Raymond [address] [place] [address] Dermatology 09/23/16 Environmental Lead Relationship Specialty Start Date End Date Mario John MD [address] [place] [address] PCP - General Internal Medicine 08/01/17 Toni Johnson, DO [address] [address] Neurology 09/23/16 Nyasia Anderson APRN.WATER TREATMENT PLANT SUPERVISOR [address] [place] [address] Pain Management 09/23/16 Shannan Raymond [address] [place] [address] Dermatology 09/23/16 Environmental Lead Relationship Specialty Start Date End Date Mario John MD [address] [place] [address] PCP - General Internal Medicine 08/01/17 Toni Johnson DO [address] [address] Neurology 09/23/16 Nyasia Anderson APRN.WATER TREATMENT PLANT SUPERVISOR [address] [place] [address] Pain Management 09/23/16 Shannan Raymond [address] [place] [address] Dermatology 09/23/16 Environmental Lead Relationship Specialty Start Date End Date Mario John MD [address] [place] [address] PCP - General Internal Medicine 08/01/17 Toni Johnson DO [address] [address] Neurology 09/23/16 Nyasia Anderson APRN.WATER TREATMENT PLANT SUPERVISOR [address] [place] [address] Pain Management 09/23/16 Shannan Raymond [address] [place] [address] Dermatology 09/23/16 Environmental Lead Relationship Specialty Start Date End Date AlvaroMario torres MD [address] [place] [address] PCP - General Internal Medicine 08/01/17 Toni Johnson, DO [address] [place] [address] Neurology 09/23/16 Nyasia Anderson APRN.WATER TREATMENT PLANT SUPERVISOR [address] [place] [address] Pain Management 09/23/16 Shannan Raymond [address] [place] [address] Dermatology 09/23/16 Environmental Lead Relationship Specialty Start Date End Date Mario John MD [address] [place] [address] PCP - General Internal Medicine 08/01/17 Toni Johnson, DO [address] [place] [address] Neurology 09/23/16 Nyasia Anderson APRN.WATER TREATMENT PLANT SUPERVISOR [address] [place] [address] Pain Management 09/23/16 Shannan Raymond [address] [place] [address] Dermatology 09/23/16 Environmental Lead Relationship Specialty Start Date End Date Mario John MD [address] [place] [facility] [address] PCP - General Internal Medicine 08/01/17 Toni Johnson, DO [address] [place] [address] Neurology 09/23/16 Nyasia Anderson APRN.WATER TREATMENT PLANT SUPERVISOR [address] [place] [address] Pain Management 09/23/16 Shannan Raymond [address] [place] [address] Dermatology 09/23/16 Environmental Lead Relationship Specialty Start Date End Date Mario John MD [address] [place] [address] PCP - General Internal Medicine 08/01/17 Toni Johnson, DO [address] [place] [address] Neurology 09/23/16 Nyasia Anderson APRN.WATER TREATMENT PLANT SUPERVISOR [address] [place] [address] Pain Management 09/23/16 Shannan Raymond [address] [place] [address] Dermatology 09/23/16 Environmental Lead Relationship Specialty Start Date End Date Mario John MD [address] [place] [address] PCP - General Internal Medicine 08/01/17 Toni Johnson, DO [address] [address] Neurology 09/23/16 Nyasia Anderson APRN.WATER TREATMENT PLANT SUPERVISOR [address] [place] [address] Pain Management 09/23/16 Shannan Raymond [address] [place] [address] Dermatology 09/23/16 Environmental Lead Relationship Specialty Start Date End Date Mario John MD [address] [place] [address] PCP - General Internal Medicine 08/01/17 Toni Johnson, DO [address] [place] [address] Neurology 09/23/16 Nyasia Anderson APRN.WATER TREATMENT PLANT SUPERVISOR [address] [place] [address] Pain Management 09/23/16 Shannan Raymond [address] [place] [address] Dermatology 09/23/16 Environmental Lead Relationship Specialty Start Date End Date Mario John MD [address] [place] [address] PCP - General Internal Medicine 08/01/17 Toni Johnson, DO [address] [address] Neurology 09/23/16 Nyasia Anderson APRN.WATER TREATMENT PLANT SUPERVISOR [address] [place] [address] Pain Management 09/23/16 Segundo Shannan [address] [place] [address] Dermatology 09/23/16 Environmental Lead Relationship Specialty Start Date End Date Maroi John MD [address] [place] [address] PCP - General Internal Medicine 08/01/17 Toni Johnson, DO [address] [address] Neurology 09/23/16 Nyasia Anderson APRN.WATER TREATMENT PLANT SUPERVISOR [address] [facility] [place] [address] Pain Management 09/23/16 Shannan Raymond [address] [place] [address] Dermatology 09/23/16 Environmental Lead Relationship Specialty Start Date End Date Mario John MD [address] [place] [facility] [address] PCP - General Internal Medicine 08/01/17 Toni Johnson, DO [address] [place] [address] Neurology 09/23/16 Nyasia Anderson, ORDNANCE TECHNICIANYandyWATER TREATMENT PLANT SUPERVISOR [address] [place] [address] Pain Management 09/23/16 Shannan Raymond [address] [place] [address] Dermatology 09/23/16 Environmental Lead Relationship Specialty Start Date End Date Mario John MD [address] [place] [address] PCP - General Internal Medicine 08/01/17 Toni Johnson, DO [address] [address] Neurology 09/23/16 Nyasia Anderson APRN.WATER TREATMENT PLANT SUPERVISOR [address] [place] [address] Pain Management 09/23/16 Shannan Raymond [address] [place] [address] Dermatology 09/23/16 Environmental Lead Relationship Specialty Start Date End Date Mario John MD [address] [place] [address] PCP - General Internal Medicine 08/01/17 Toni Johnson, DO [address] [address] Neurology 09/23/16 Nyasia Anderson APRNYandyWATER TREATMENT PLANT SUPERVISOR [address] [place] [address] Pain Management 09/23/16 Shannan Raymond [address] [place] [address] Dermatology 09/23/16 Environmental Lead Relationship Specialty Start Date End Date Mario John MD [address] [place] [address] PCP - General Internal Medicine 08/01/17 Toni Johnson, DO [address] [place] [address] Neurology 09/23/16 Nyasia Anderson APRN.WATER TREATMENT PLANT SUPERVISOR [address] [place] [address] Pain Management 09/23/16 Shannan Raymond [address] [place] [address] Dermatology 09/23/16 Environmental Lead Relationship Specialty Start Date End Date Mario John MD [address] [place] [address] PCP - General Internal Medicine 08/01/17 Toni Johnson, DO [address] [place] [address] Neurology 09/23/16 Nyasia Anderson APRN.WATER TREATMENT PLANT SUPERVISOR [address] [place] [address] Pain Management 09/23/16 Shannan Raymond [address] [facility] [place] [address] Dermatology 09/23/16 Environmental Lead Relationship Specialty Start Date End Date Mario John MD [address] [place] [address] PCP - General Internal Medicine 08/01/17 Toni Johnson, DO [address] [place] [address] Neurology 09/23/16 Nyasia Anderson APRN.WATER TREATMENT PLANT SUPERVISOR [address] [place] [address] Pain Management 09/23/16 Shannan Raymond [address] [facility] [place] [address] Dermatology 09/23/16 Environmental Lead Relationship Specialty Start Date End Date Mario John MD [address] [place] [address] PCP - General Internal Medicine 08/01/17 Toni Johnson, DO [address] [address] Neurology 09/23/16 Nyasia Anderson, POPEYE.WATER TREATMENT PLANT SUPERVISOR [address] [place] [address] Pain Management 09/23/16 Shannan Raymond [address] [place] [address] Dermatology 09/23/16 Environmental Lead Relationship Specialty Start Date End Date WoodruffMario torres MD [address] [place] [address] PCP - General Internal Medicine 08/01/17 Toni Johnson, DO [address] [address] Neurology 09/23/16 Nyasia Anderson, ORDNANCE TECHNICIAN.WATER TREATMENT PLANT SUPERVISOR [address] [place] [address] Pain Management 09/23/16 Shannan Raymond [address] [place] [address] Dermatology 09/23/16 Environmental Lead Relationship Specialty Start Date End Date AlvaroMario torres MD [address] [place] [address] PCP - General Internal Medicine 08/01/17 Toni Johnson, DO [address] [place] [address] Neurology 09/23/16 Nyasia Anderson APRN.WATER TREATMENT PLANT SUPERVISOR [address] [place] [address] Pain Management 09/23/16 Shannan Raymond [address] [facility] [place] [address] Dermatology 09/23/16 Environmental Lead Relationship Specialty Start Date End Date WoodruffMario torres MD [address] [place] [facility] [address] PCP - General Internal Medicine 08/01/17 Toni Johnson, DO [address] [place] [address] Neurology 09/23/16 Nyasia Anderson APRN.WATER TREATMENT PLANT SUPERVISOR [address] [place] [address] Pain Management 09/23/16 Shannan Raymond [address] [place] [address] Dermatology 09/23/16 Environmental Lead Relationship Specialty Start Date End Date Mario John MD [address] [place] [address] PCP - General Internal Medicine 08/01/17 Toni Johnson, DO [address] [place] [address] Neurology 09/23/16 Nyasia Anderson APRN.WATER TREATMENT PLANT SUPERVISOR [address] [place] [address] Pain Management 09/23/16 Shannan Raymond [address] [place] [address] Dermatology 09/23/16 Environmental Lead Relationship Specialty Start Date End Date Mario John MD [address] [place] [facility] [address] PCP - General Internal Medicine 08/01/17 Toni Johnson, DO [address] [place] [address] Neurology 09/23/16 Nyasia Anderson APRN.WATER TREATMENT PLANT SUPERVISOR [address] [place] [address] Pain Management 09/23/16 Shannan Raymond [address] [place] [address] Dermatology 09/23/16 Environmental Lead Relationship Specialty Start Date End Date AlvaroMario MD [address] [place] [address] PCP - General Internal Medicine 08/01/17 Toni Johnson, DO [address] [address] Neurology 09/23/16 Nyasia Anderson APRN.WATER TREATMENT PLANT SUPERVISOR [address] [place] [address] Pain Management 09/23/16 Shannan Raymond [address] [place] [address] Dermatology 09/23/16 Environmental Lead Relationship Specialty Start Date End Date AlvaroMario MD [address] [place] [address] PCP - General Internal Medicine 08/01/17 Toni Johnson, DO [address] [address] Neurology 09/23/16 Nyasia Andersno APRN.WATER TREATMENT PLANT SUPERVISOR [address] [place] [address] Pain Management 09/23/16 Shannan Raymond [address] [place] [address] Dermatology 09/23/16 Environmental Lead Relationship Specialty Start Date End Date AlvaroMario MD [address] [place] [address] PCP - General Internal Medicine 08/01/17 Toni Johnson, DO [address] [place] [address] Neurology 09/23/16 Nyasia Anderson APRN.WATER TREATMENT PLANT SUPERVISOR [address] [place] [address] Pain Management 09/23/16 Shannan Raymond [address] [facility] [place] [address] Dermatology 09/23/16 Environmental Lead Relationship Specialty Start Date End Date AlvaroMario torres MD [address] [place] [address] PCP - General Internal Medicine 08/01/17 Toni Johnson DO [address] [address] Neurology 09/23/16 Nyasia Anderson, ORDNANCE TECHNICIAN.WATER TREATMENT PLANT SUPERVISOR [address] [place], [place] [phone] Pain Management 09/23/16 Shannan Raymond [address] [place] [address] Dermatology 09/23/16 Environmental Lead Relationship Specialty Start Date End Date Woodruff, Mario Dotson MD [address] [place] [address] PCP - General Internal Medicine 08/01/17 Toni Johnson DO [address] [address] Neurology 09/23/16 Nyasia Anderson, ORDNANCE TECHNICIAN.WATER TREATMENT PLANT SUPERVISOR [address] [facility] [place] [address] Pain Management 09/23/16 Shannan Raymond [address] [facility] [place] [address] Dermatology 09/23/16 Environmental Lead Relationship Specialty Start Date End Date AlvaroMario torres MD [address] [place] [address] PCP - General Internal Medicine 08/01/17 Toni Johnson DO [address] [address] Neurology 09/23/16 Nyasia Anderson APRN.WATER TREATMENT PLANT SUPERVISOR [address] [place] [address] Pain Management 09/23/16 Shannan Raymond [address] [place] [address] Dermatology 09/23/16 Environmental Lead Relationship Specialty Start Date End Date Mario John MD [address] [place] [address] PCP - General Internal Medicine 08/01/17 Toni Johnson DO [address] [address] Neurology 09/23/16 Nyasia Anderson APRN.WATER TREATMENT PLANT SUPERVISOR [address] [place] [address] Pain Management 09/23/16 Shannan Raymond [address] [place] [address] Dermatology 09/23/16 Environmental Lead Relationship Specialty Start Date End Date Mario John MD [address] [place] [address] PCP - General Internal Medicine 08/01/17 Toni Johnson DO [address] [address] Neurology 09/23/16 Nyasia Anderson APRN.WATER TREATMENT PLANT SUPERVISOR [address] [place] [address] Pain Management 09/23/16 Shannan Raymond [address] [place] [address] Dermatology 09/23/16 Environmental Lead Relationship Specialty Start Date End Date AlvaroMario torres MD [address] [place] [address] PCP - General Internal Medicine 08/01/17 Toni Johnson DO [address] [address] Neurology 09/23/16 Nyasia Anderson APRN.WATER TREATMENT PLANT SUPERVISOR [address] [place] [address] Pain Management 09/23/16 Shannan Raymond [address] [facility] [place] [address] Dermatology 09/23/16 Environmental Lead Relationship Specialty Start Date End Date Woodruff, Mario Dotson MD [address] [place] [address] PCP - General Internal Medicine 08/01/17 Toni Johnson DO [address] [address] Neurology 09/23/16 Nyasia Anderson APRN.WATER TREATMENT PLANT SUPERVISOR [address] [place] [address] Pain Management 09/23/16 Shannan Raymond [address] [place] [address] Dermatology 09/23/16 Environmental Lead Relationship Specialty Start Date End Date WoodruffMario torres MD [address] [place] [address] PCP - General Internal Medicine 08/01/17 Toni Johnson DO [address] [address] Neurology 09/23/16 Nyasia Anderson APRN.WATER TREATMENT PLANT SUPERVISOR [address] [place] [address] Pain Management 09/23/16 Shannan Raymond [address] [place] [address] Dermatology 09/23/16 Environmental Lead Relationship Specialty Start Date End Date Alvaro, Mario Dotson MD [address] [place] [address] PCP - General Internal Medicine 08/01/17 Toni Johnson DO [address] [address] Neurology 09/23/16 Nyasia Anderson, ORDNANCE TECHNICIAN.WATER TREATMENT PLANT SUPERVISOR [address] [place] [address] Pain Management 09/23/16 Shannan Raymond [address] [place] [address] Dermatology 09/23/16 Environmental Lead Relationship Specialty Start Date End Date AlvaroMario torres MD [address] [place] [address] PCP - General Internal Medicine 08/01/17 Toni Johnson DO [address] [address] Neurology 09/23/16 Nyasia Anderson APRN.WATER TREATMENT PLANT SUPERVISOR [address] [place] [address] Pain Management 09/23/16 Shannan Raymond [address] [facility] [place] [address] Dermatology 09/23/16 Environmental Lead Relationship Specialty Start Date End Date Mario John MD [address] [place] [address] PCP - General Internal Medicine 08/01/17 Toni Johnson DO [address] [address] Neurology 09/23/16 Nyasia Anderson APRN.WATER TREATMENT PLANT SUPERVISOR [address] [place] [address] Pain Management 09/23/16 Shannan Raymond [address] [facility] [place] [address] Dermatology 09/23/16 Environmental Lead Relationship Specialty Start Date End Date Mario John MD [address] [place] [address] PCP - General Internal Medicine 08/01/17 Toni Johnson DO [address] [address] Neurology 09/23/16 Nyasia Anderson APRN.WATER TREATMENT PLANT SUPERVISOR [address] [place] [address] Pain Management 09/23/16 Shannan Raymond [address] [facility] [place] [address] Dermatology 09/23/16 Environmental Lead Relationship Specialty Start Date End Date Mario John MD [address] [place] [address] PCP - General Internal Medicine 08/01/17 Toni Johnson DO [address] [place] [address] Neurology 09/23/16 Nyasia Anderson APRN.WATER TREATMENT PLANT SUPERVISOR [address] [place] [id number] Pain Management 09/23/16 Shannan Raymond [address] [place] [address] Dermatology 09/23/16 Environmental Lead Relationship Specialty Start Date End Date Mario John MD [address] [place] [address] PCP - General Internal Medicine 08/01/17 Toni Johnson DO [address] [address] Neurology 09/23/16 Nyasia Anderson APRN.[employer] [address] [place] [address] Pain Management 09/23/16 Shannan Raymond [address] [place] [address] Dermatology 09/23/16 Environmental Lead Relationship Specialty Start Date End Date Mario John MD [address] [place] [address] PCP - General Internal Medicine 08/01/17 Toni Johnson DO [address] [address] Neurology 09/23/16 Nyasia Anderson APRN.[employer] SU[employer] [address] [place] [address] Pain Management 09/23/16 Shannan Raymond [address] [place] [address] Dermatology 09/23/16 Environmental Lead Relationship Specialty Start Date End Date Mario John MD [address] [place] [address] PCP - General Internal Medicine 08/01/17 Toni Johnson DO [address] [place] [address] Neurology 09/23/16 Nyasia Anderson APRN.[employer] [address] [place] [address] Pain Management 09/23/16 Shannan Raymond [address] [place] [address] Dermatology 09/23/16 Environmental Lead Relationship Specialty Start Date End Date Mario John MD [address] [place] [address] PCP - General Internal Medicine 08/01/17 Toni Johnson DO [address] [address] Neurology 09/23/16 Nyasia Anderson APRN.[employer] [address] [place] [address] Pain Management 09/23/16 Shannan Raymond [address] [facility] [place] [address] Dermatology 09/23/16 Environmental Lead Relationship Specialty Start Date End Date Mario John MD [address] [place] [address] PCP - General Internal Medicine 08/01/17 Toni Johnson DO [address] [address] Neurology 09/23/16 Nyasia Anderson APRN.[employer] [address] [place] [address] Pain Management 09/23/16 Shannan Raymond [address] [facility] [place] [address] Dermatology 09/23/16 Environmental Lead Relationship Specialty Start Date End Date Alvaro, Mario Dotson MD [address] [place] [address] PCP - General Internal Medicine 08/01/17 Toni Johnson DO [address] [address] Neurology 09/23/16 Nyasia Anderson, ORDNANCE TECHNICIAN.[employer] SUPER[employer] [address] [facility] [place] [address] Pain Management 09/23/16 Shannan Raymond [address] [facility] [place] [address] Dermatology 09/23/16 Environmental Lead Relationship Specialty Start Date End Date Mario John MD [address] [place] [address] PCP - General Internal Medicine 08/01/17 Toni Johnson DO [address] [id number] Neurology 09/23/16 Nyasia Anderson APRN.[employer] [address] [place], [place] [address] Pain Management 09/23/16 Shannan Raymond [address] [place], [place] [id number] Dermatology 09/23/16 FOR RECORDS PERTAINING TO PATIENTS WHO ARE OR HAVE BEEN ENROLLED IN A CHEMICAL DEPENDENCY/SUBSTANCEABUSE PROGRAM, SOME INFORMATION MAY BE OMITTED. This clinical summary was aggregated from multiple sources. Caution should be exercised in using it in the provision of clinical care. This summary normalizes information from multiple sources, and as a consequence, information in this document may materially change the coding, format and clinical context of patient data. In addition, data may be omitted in some cases. CLINICAL DECISIONS SHOULD BE BASED ON THE PRIMARY CLINICAL RECORDS. [employer] provides no warranty or guarantee of the accuracy or completeness of information in this document.
[2023-11-11] MEDS: Meclizine HCl 25 MG Tablet PO (20:21)
[2023-11-11] MEDS: 0.9% Normal Saline (1000mL) 1,000 ML 1000 ML IV (20:23)
[2023-11-11 20:24] LABS: Anion Gap 4 (5-15); BUN 13 mg/dL (7-18); BUN/Creat Ratio 16.6 RATIO (10-20); Calcium,Total 8.9 mg/dL (8.5-10.1); Chloride 110 mmol/L (98-107); Creatinine, Serum 0.78 mg/dL (0.55-1.02); EST Glomerular Filtration Rate 80 mL/min (>60); Est Glom Filt Rate - Afr Amer 96 mL/min (>60); Estimated Creatinine Clearance 73.63 ml/min; Glucose 115 mg/dL (74-106); Potassium 3.7 mmol/L (3.5-5.1); Sodium Level 141 mmol/L (136-145)
[2023-11-11 21:15] VITALS: BP 143/73; O2SAT 99
== END 2023-11-11 21:33 | disposition home or self-care (01) ==
PROVIDERS: Emergency Provider Emergency Medicine; PCP Internal Medicine; Visit Provider Emergency Medicine
DX: R42 Dizziness and giddiness (principal); E03.9 Hypothyroidism, unspecified
CPT/HCPCS: 80048; 84443; 85025; 96360; 99282; J7030; A4216

== ENCOUNTER 2023-11-19 15:24 | Emergency (ER) | payer MEDICAID, SELFPAY ==
[2023-11-19 15:25] VITALS: BP 150/79; PULSE 92; RESP 18; TEMP 38.3; O2SAT 100
[2023-11-19 15:50] VITALS: BMI 27.8
--- NOTE | 2023-11-19 16:01 | EX.ED.DYSGE1 ---
HPI History of Present Illness Chief Complaint: General Illness Informant: patient Onset/Context/Timing Onset: Hours (2) Context: Sudden Onset Timing: Continuous Quality: Sharp Location: Lower abdomen Worsened by: Walking, moving, talking Relieved by: Nothing Narrative Narrative: Patient presents with dizziness, abdominal pain, sore throat, and rhinorrhea that began 2 hours ago. Patient states that she tends to get sinus infections very quickly. Patient admits to some subjective fevers. Patient also admits to some lower abdominal pain. Patient admits to some nausea but denies any vomiting. Patient states she did have some blood in her urine earlier this week but currently denies any dysuria or hematuria. Patient states she does feel short of breath at times. Patient states her abdominal pain is worse with any moving, walking, and talking. Patient states nothing seems to help it. [facility] Medical History (Updated 11/19/23 @ 18:[address] Toni Mcclendon, DO) Adhesions due to endometriosis Celiac disease Cervicalgia Chronic pain Constipation Diabetic neuropathy Fibromyalgia HTN (hypertension) Hypercholesteremia Hypothyroid Lumbago Migraine aura, persistent PCOS (polycystic ovarian syndrome) Thyroid disease Type 2 diabetes mellitus Home Medications Clobetasol Propionate/Emoll [Clobetasol Emollient 0.05% Crm] 30 g TP DAILY PRN PRN Itching 10/20/16 [History Last Taken Unknown] alcohol swabs (Alcohol Prep Swabs) 1 ea TP DAILY 10/20/16 [History Last Taken Unknown] budesonide 0.5 mg/2 mL suspension for nebulization (Pulmicort) 0.5 mg IH BID 10/20/16 [History Last Taken Unknown] chlorhexidine gluconate 2 % towelette 1 applic TP DAILY 10/20/16 [History Last Taken Unknown] cyproheptadine 4 mg tablet 4 mg PO BID PRN PRN Itching 10/20/16 [History Last Taken Unknown] epinephrine 0.3 mg/0.3 mL injection, auto-injector (EpiPen) 0.3 mg X1 PRN allergic reaction 10/20/16 [History Last Taken Unknown] estradiol 1 mg tablet 1 mg PO TID 10/20/16 [History Last Taken Unknown] estradiol 2 mg tablet (Estrace) 2 mg PO DAILY 10/20/16 [History Last Taken Unknown] estropipate 1.5 mg tablet 1.5 mg PO DAILY 10/20/16 [History Last Taken Unknown] ipratropium bromide 42 mcg (0.06 %) nasal spray 1 spray DAILY 10/20/16 [History Last Taken Unknown] lactulose 10 gram/15 mL oral solution (Constulose) 10 g PO DAILY 10/20/16 [History Last Taken Unknown] lisinopril 10 mg tablet 10 mg PO DAILY #30 tabs 10/20/16 [Rx Last Taken Unknown] loratadine 10 mg tablet 10 mg PO DAILY 10/20/16 [History Last Taken Unknown] meloxicam 7.5 mg tablet (Mobic) 7.5 mg PO BID PRN PRN inflammation 10/20/16 [History Last Taken Unknown] metformin 500 mg tablet 500 mg PO 4X/DAY 10/20/16 [History Last Taken Unknown] metronidazole 0.75 % (37.5 mg/5 gram) vaginal gel (Vandazole) 1 applic VG DAILY PRN vaginal itch 10/20/16 [History Last Taken Unknown] multivitamin (Daily Multiple tablet) 1 ea PO DAILY 10/20/16 [History Last Taken Unknown] naproxen 500 mg tablet 500 mg PO BID 10/20/16 [History Last Taken Unknown] nystatin 100,000 unit/gram topical ointment 1 applic topical QODAY 10/20/16 [History Last Taken Unknown] omeprazole 20 mg capsule,delayed release 20 mg PO DAILY 10/20/16 [History Last Taken Unknown] pregabalin 150 mg capsule (Lyrica) 150 mg PO BID 10/20/16 [History Last Taken Unknown] promethazine 25 mg tablet 25 mg PO Q8H PRN PRN Nausea 10/20/16 [History Last Taken Unknown] rizatriptan 10 mg disintegrating tablet 10 mg PO X1 10/20/16 [History Last Taken Unknown] simvastatin 20 mg tablet 20 mg PO QHS 10/20/16 [History Last Taken Unknown] spironolactone 100 mg tablet (Aldactone) 100 mg PO DAILY 10/20/16 [History Last Taken Unknown] triamcinolone acetonide 55 mcg nasal spray aerosol (Nasacort) 1 spray NS BID 10/20/16 [History Last Taken Unknown] amlodipine 5 mg tablet 5 mg PO DAILY ##30 10/27/16 [Rx Last Taken Unknown] tizanidine 4 mg tablet 0.5 tab PO BID #30 tabs 10/27/16 [Rx Last Taken Unknown] doxycycline monohydrate 100 mg capsule 100 mg PO BID #20 caps 10/10/21 [Rx Last Taken Unknown] meclizine 25 mg tablet 25 mg PO 4X/DAY PRN PRN Dizziness #20 tabs 11/11/23 [Rx Last Taken Unknown] atorvastatin 40 mg tablet 40 mg PO DAILY 11/19/23 [History Last Taken Unknown] oseltamivir 75 mg capsule 75 mg PO BID #10 CAPSULES 11/19/23 [Rx Last Taken Unknown] Allergy/AdvReac Type Severity Reaction Status Date / Time buprenorphine Allergy PT UNSURE Verified 11/19/23 15:25 OF REACTION cefaclor [From Ceclor] Allergy Unknown Verified 11/19/23 15:25 Cephalosporins Allergy Unknown Verified 11/19/23 15:25 codeine Allergy Rash Verified 11/19/23 15:25 Corticosteroids Allergy NEEDS Verified 11/19/23 15:25 (Glucocorticoids) FOLLOW-UP [steroids] erythromycin base Allergy Unknown Verified 11/19/23 15:25 fentanyl Allergy Rash Verified 11/19/23 15:25 isopropyl alcohol Allergy Rash Verified 11/19/23 15:25 latex Allergy PT UNSURE Verified 11/19/23 15:25 OF REACTION levothyroxine Allergy Other Verified 11/19/23 15:25 mold Allergy Unknown Verified 11/19/23 15:25 nitrofurantoin Allergy Other Verified 11/19/23 15:25 [From Macrobid] oats Allergy Abd Verified 11/19/23 15:25 cramps/diarrhea Opioids - Morphine Analogues Allergy NEEDS Verified 11/19/23 15:25 FOLLOW-UP oxycodone Allergy Vomiting Verified 11/19/23 15:25 Penicillins Allergy Rash Verified 11/19/23 15:25 Sulfa (Sulfonamide Allergy Rash Verified 11/19/23 15:25 Antibiotics) sulfamethoxazole Allergy Unknown Verified 11/19/23 15:25 [From Bactrim] tramadol HCl [From Ultram] Allergy Unknown Verified 11/19/23 15:25 trimethoprim [From Bactrim] Allergy Unknown Verified 11/19/23 15:25 wheat bran Allergy Abd Verified 11/19/23 15:25 [From Senokot Wheat Bran] cramps/diarrhea whey Allergy Abd Verified 11/19/23 15:25 cramps/diarrhea Surgical History (Updated 11/19/23 @ 16:[address] Toni Mcclendon DO) Hx of nasal septoplasty Hx of thyroidectomy Social History housing: house Smoking Status: Unknown if ever smoked ROS ROS ED Constitutional Constitutional ED: Reports fever(s) and subjective; Denies chills Eyes Eyes: Reports blurry vision; Denies diplopia ENT ENT ED: Reports rhinorrhea and sore throat Cardiovascular Cardiovascular: Denies chest pain or palpitations Respiratory/Chest Respiratory/Chest: Reports dyspnea; Denies cough Gastrointestinal Gastrointestinal: Reports abdominal pain and nausea; Denies vomiting Genitourinary Genitourinary ED: Reports hematuria; Denies dysuria Musculoskeletal Musculoskeletal: Reports back pain and neck pain Integumentary Denies abscess or rash Neurologic Neurologic: Denies headache(s) or weakness Allergic/Immunologic Allergic/Immunologic ED: Denies mouth swelling or urticaria EXAM Physical Exam Const Vital Signs: 11/19/23 15:25 11/19/23 15:58 11/19/23 16:41 Temperature 100.9 F H 98.6 F Temperature Source Temporal Temporal Pulse Rate 92 84 Respiratory Rate 18 16 Respiratory Pattern Normal Blood Pressure 150/79 H 145/74 H Blood Pressure Mean 102 97 Pulse Ox 100 100 Oxygen Delivery Method Room Air Positive well nourished and well developed General Appearance ED: well developed and NAD HEENT Reports moist mucous membranes HEENT Narrative: Oropharynx shows some postnasal drainage. There is no erythema. There are no exudates noted. Eyes PERRL and EOMs intact bilaterally Neck no lymphadenopathy, supple and no JVD Resp normal respiratory effort and clear to auscultation bilaterally Cardio regular rate and regular rhythm GI non-distended Palpation: soft and tender LLQ, RLQ and suprapubic; Negative for guarding or rebound tenderness present Extremity normal to inspection General Extremety ED: Negative for edema or tenderness General Extremity: Negative for edema Neuro oriented x3, CN's II-XII intact bilaterally and no sensory deficits noted Sensorium / Orientation: alert Motor Exam: strength 5/5 throughout Psych mental status grossly normal MDM MDM MDM Narrative Medical decision making narrative: Differential diagnosis includes viral upper respiratory infection, COVID-19 infection, influenza infection, RSV infection, pneumonia, urinary tract infection, dehydration, and electrolyte abnormality. CBC will be obtained to assess for leukocytosis and anemia. Basic metabolic profile will be obtained to assess for electrolyte abnormality and renal function. Urinalysis will be obtained to assess for urinary tract infection and hematuria. COVID-19, influenza, and RSV PCR will be obtained to assess for viral infection. Lab Data Attestation: I reviewed the patient's lab results. Lab results narrative: CBC was reviewed and was within normal limits. Basic metabolic profile was reviewed and was within normal limits. Urinalysis was reviewed. There is no evidence of urinary tract infection or hematuria. COVID-19 PCR was reviewed and was negative. Influenza PCR was reviewed and was positive for influenza A and negative for influenza B. RSV PCR was reviewed and was negative. Labs: Laboratory Results - last 24 hr 11/19/23 16:36 WBC 7.8 RBC 4.16 L Hgb 12.6 Hct 38.0 MCV 91.3 MCH 30.3 MCHC 33.2 RDW Std Deviation 44.8 H RDW Coeff of Samy 13.2 Plt Count 240 MPV 9.7 Immature Gran % (Auto) 0.300 Neut % (Auto) 67.7 Lymph % (Auto) 9.1 L [place] % (Auto) 17.9 H Eos % (Auto) 4.5 Baso % (Auto) 0.5 Absolute Neuts (auto) 5.3 Absolute Lymphs (auto) 0.71 L Nucleated RBC % 0 Sodium 137 Potassium 3.6 Chloride 103 Carbon Dioxide 26.0 Anion Gap 8 BUN 6 L Creatinine 0.76 Estim Creat Clear Calc 76.45 Est GFR (MDRD) Af Amer 99 Est GFR (MDRD) Non-Af 82 BUN/Creatinine Ratio 7.9 L Glucose 117 H Calcium 8.9 Urine Color Yellow Urine Clarity Clear Urine pH 6.0 Ur Specific [place] 1.020 Urine Protein 30 H Urine Glucose (UA) Normal Urine Ketones Negative Urine Occult Blood Negative Urine Nitrite Negative Urine Bilirubin Negative Urine Urobilinogen Normal Ur Leukocyte Esterase Negative Urine RBC 0 SEEN Urine WBC 0 SEEN Ur Squamous Epith Cells 0 SEEN Urine Bacteria 0 SEEN Urine Mucus 0 SEEN Treatment and Re-Evaluation :: Patient was given IV fluids. Patient was advised of her findings. Patient was given a dose of Tamiflu here. Patient is given a prescription for Tamiflu. Patient was instructed to drink plenty of fluids. Patient was instructed to take Tylenol or ibuprofen as needed for pain or fever. Patient was instructed to follow-up with her primary care physician in 5 to 7 days. Patient understood and was agreeable with the plan. All questions were answered. Discharge Plan Triage Chief Complaint: General Illness ED Provider: Toni Mcclendon Dx/Rx/DC Orders Clinical Impression: Influenza A, Viral illness Instructions: ED Influenza (Adult) Prescriptions: New oseltamivir [oseltamivir] 75 mg capsule 75 mg PO BID Qty: 10 0RF No Action multivitamin [Daily Multiple] 1 EACH tablet 1 ea PO DAILY nystatin 1 APPLIC ointment 1 applic topical QODAY meloxicam [Mobic] 7.5 MG tablet 7.5 mg PO BID PRN PRN (Reason: inflammation) promethazine 25 MG tablet 25 mg PO Q8H PRN PRN (Reason: Nausea) omeprazole 20 MG capsule 20 mg PO DAILY budesonide [Pulmicort] 0.5 MG/2 ML suspension for nebulization 0.5 mg IH BID estradiol [Estrace] 2 MG tablet 2 mg PO DAILY alcohol swabs [Alcohol Prep Swabs] 1 EACH pads, medicated 1 ea TP DAILY epinephrine [EpiPen] 0.3 MG/0.3 ML auto-injector 0.3 mg IJ X1 PRN (Reason: allergic reaction) ipratropium bromide 1 SPRAY spray,non-aerosol 1 spray NASAL DAILY naproxen 500 MG tablet 500 mg PO BID pregabalin [Lyrica] 150 MG capsule 150 mg PO BID chlorhexidine gluconate 15 ML towelette 1 applic TP DAILY metformin 500 MG tablet 500 mg PO 4X/DAY metronidazole [Vandazole] 1 APPLIC gel 1 applic VG DAILY PRN (Reason: vaginal itch) spironolactone [Aldactone] 100 MG tablet 100 mg PO DAILY estropipate 1.5 MG tablet 1.5 mg PO DAILY cyproheptadine 4 MG tablet 4 mg PO BID PRN PRN (Reason: Itching) estradiol 1 MG tablet 1 mg PO TID rizatriptan 10 MG tablet,disintegrating 10 mg PO X1 simvastatin 20 MG tablet 20 mg PO QHS triamcinolone acetonide [Nasacort] 1 SPRAY aerosol,spray 1 spray NS BID loratadine 10 MG tablet 10 mg PO DAILY lactulose [Constulose] 10 GM/15 ML solution 10 g PO DAILY Clobetasol Propionate/Emoll [Clobetasol Emollient 0.05% Crm] 15 GM Cream..G. 30 g TP DAILY PRN PRN (Reason: Itching) lisinopril 10 MG tablet 10 mg PO DAILY Qty: 30 0RF tizanidine 4 MG tablet 0.5 tab PO BID Qty: 30 1RF amlodipine 5 MG tablet 5 mg PO DAILY Qty: 30 1RF doxycycline monohydrate 100 MG capsule 100 mg PO BID Qty: 20 0RF atorvastatin 40 mg tablet 40 mg PO DAILY Patient Comments: take 1 tablet by mouth at bedtime meclizine 25 mg tablet 25 mg PO 4X/DAY PRN PRN (Reason: Dizziness) Qty: 20 0RF Primary Care Provider: Mario Eckert Referrals: Mario Eckert MD [Primary Care Provider] - 5-7 Days Disposition Disposition: Home, Self Care
[2023-11-19 16:38] LABS: Bacteria 0 SEEN /hpf (None Seen); Mucous, Urine 0 SEEN /hpf (<or=2+); Red Blood Cells-Urine 0 SEEN /hpf (0-5); Squamous Epithelial Cells - UA 0 SEEN /hpf (5-10); White Blood Cells 0 SEEN /hpf (0-5)
[2023-11-19] MEDS: 0.9% Normal Saline (1000mL) 1,000 ML 1000 ML IV (16:38)
[2023-11-19 16:41] VITALS: BP 145/74; PULSE 84; RESP 16; TEMP 37; O2SAT 100
[2023-11-19 16:43] LABS: Absolute Lymphocyte Count 0.71 X10^3/uL (0.83-4.51); Absolute Neutrophil Count 5.3 X10^3/uL (2.0-7.7); Basophil# 0.04 X10^3/uL; Basophil% 0.5 % (0-1); Eosinophil# 0.35 X10^3/uL; Eosinophils% 4.5 % (0-5); Hemoglobin 12.6 g/dL (12.0-15.0); Lymphocyte # 0.71 X10^3/ul (0.83-4.51); Lymphocyte % 9.1 % (19-41); Mean Corp Hgb Conc 33.2 g/dL (32-36); Mean Corpuscular Hgb 30.3 pg (27.0-32.0); Mean Corpuscular Volume 91.3 fL (81-99); Mean Platelet Vol. 9.7 fl (6.2-12.0); Monocyte# 1.39 X10^3/uL; Monocyte% 17.9 % (0-10); NRBC Flagged by Analyzer 0 % (0-5); Neutrophil # 5.25 X10^3/uL (2.7-7.7); Neutrophil % 67.7 % (47-70); Platelet Count 240 K/mm3 (150-450); RBC Distribution Width CV 13.2 % (11.6-14.6); RBC Distribution Width SD 44.8 fl (35.1-43.9); Red Blood Count 4.16 M/mm3 (4.2-5.4); White Blood Count 7.8 K/mm3 (4.4-11.0)
[2023-11-19 16:59] LABS: Color, Urine Yellow (Yellow); Glucose, Dipstick Normal (Normal); Ketone-Dipstick Negative (Negative); Leukocyte Esterase-Dipstick Negative /ul (Negative); Nitrite-Dipstick Negative (Negative); Occult Blood-Urine Negative /ul (Negative); Protein-Dipstick 30 mg/dl (Negative); Urine Bilirubin Dipstick Negative (Negative); Urine Clarity Clear (Clear); Urine Urobilinogen Normal (Normal)
[2023-11-19 17:04] LABS: Anion Gap 8 (5-15); BUN 6 mg/dL (7-18); BUN/Creat Ratio 7.9 RATIO (10-20); Calcium,Total 8.9 mg/dL (8.5-10.1); Chloride 103 mmol/L (98-107); Creatinine, Serum 0.76 mg/dL (0.55-1.02); EST Glomerular Filtration Rate 82 mL/min (>60); Est Glom Filt Rate - Afr Amer 99 mL/min (>60); Estimated Creatinine Clearance 76.45 ml/min; Glucose 117 mg/dL (74-106); Potassium 3.6 mmol/L (3.5-5.1); Sodium Level 137 mmol/L (136-145)
[2023-11-19] MEDS: Oseltamivir Phosphate 75 MG Capsule PO (18:58)
[2023-11-19 19:00] VITALS: BP 144/82; PULSE 94; PULSE 95; RESP 18; O2SAT 98; O2SAT 99
== END 2023-11-19 19:03 | disposition home or self-care (01) ==
PROVIDERS: Emergency Provider Emergency Medicine; PCP Internal Medicine; Visit Provider Emergency Medicine
DX: J10.1 Influenza due to other identified influenza virus with other respiratory manifestations (principal); E11.9 Type 2 diabetes mellitus without complications; B34.9 Viral infection, unspecified; I10 Essential (primary) hypertension; E78.00 Pure hypercholesterolemia, unspecified; Z79.899 Other long term (current) drug therapy; Z79.84 Long term (current) use of oral hypoglycemic drugs; G43.109 Migraine with aura, not intractable, without status migrainosus
CPT/HCPCS: 80048; 81001; 85025; 87631; 96360; 96361; 99283; A4216

== ENCOUNTER 2024-01-21 20:30 | Emergency (ER) | payer MEDICAID, SELFPAY ==
[2024-01-21 20:31] VITALS: BP 172/87; PULSE 76; RESP 18; TEMP 36.1; O2SAT 100; BMI 26.0
--- NOTE | 2024-01-21 20:52 | EKG12_ITS ---
Test Reason : DYSRHYTHMIA Blood Pressure : / mmHG Vent. Rate : 068 BPM Atrial Rate : 068 BPM P-R Int : 106 ms QRS Dur : 086 ms QT Int : 404 ms P-R-T Axes : 043 006 013 degrees QTc Int : 429 ms Sinus rhythm with short IN MINOR Nonspecific ST abnormality BORDERLINE Confirmed by Cade Rocha ([id number]), production editor CHINA PERRY ([id number]) on 01/24/2024 6:36:03 AM Referred By: Confirmed By:Cade Rocha
--- NOTE | 2024-01-21 20:53 | EX.ED.DYSGE1 ---
HPI History of Present Illness Chief Complaint: Headache Detail of Chief Complaint: Myalgias, subjective fever, migraine Informant: patient Narrative Narrative: Patient presents secondary to malaise, migraine headache, subjective fever. She states that she has been without her estradiol for the past 5 days because of problems getting the prescription sent to the pharmacy. She states when they take her off this medicine it tends to throw her system out of whack and she develops body aches and migraines. She states she just came from the pharmacy with they gave her 9 pills to get her through the weekend, however she wanted to have some test done prior to starting this medication. She is asking for something to help with her headache, check her heart to make sure it is okay, and check her blood work. [facility] Medical History Adhesions due to endometriosis Celiac disease Cervicalgia Chronic pain Constipation Diabetic neuropathy Fibromyalgia HTN (hypertension) Hypercholesteremia Hypothyroid Lumbago Migraine aura, persistent PCOS (polycystic ovarian syndrome) Thyroid disease Type 2 diabetes mellitus Home Medications Clobetasol Propionate/Emoll [Clobetasol Emollient 0.05% Crm] 30 g TP DAILY PRN PRN Itching 10/20/16 [History Last Taken Unknown] alcohol swabs (Alcohol Prep Swabs) 1 ea TP DAILY 10/20/16 [History Last Taken Unknown] budesonide 0.5 mg/2 mL suspension for nebulization (Pulmicort) 0.5 mg IH BID 10/20/16 [History Last Taken Unknown] chlorhexidine gluconate 2 % towelette 1 applic TP DAILY 10/20/16 [History Last Taken Unknown] cyproheptadine 4 mg tablet 4 mg PO BID PRN PRN Itching 10/20/16 [History Last Taken Unknown] epinephrine 0.3 mg/0.3 mL injection, auto-injector (EpiPen) 0.3 mg X1 PRN allergic reaction 10/20/16 [History Last Taken Unknown] estradiol 1 mg tablet 1 mg PO TID 10/20/16 [History Last Taken Unknown] estradiol 2 mg tablet (Estrace) 2 mg PO DAILY 10/20/16 [History Last Taken Unknown] estropipate 1.5 mg tablet 1.5 mg PO DAILY 10/20/16 [History Last Taken Unknown] ipratropium bromide 42 mcg (0.06 %) nasal spray 1 spray DAILY 10/20/16 [History Last Taken Unknown] lactulose 10 gram/15 mL oral solution (Constulose) 10 g PO DAILY 10/20/16 [History Last Taken Unknown] lisinopril 10 mg tablet 10 mg PO DAILY #30 tabs 10/20/16 [Rx Last Taken Unknown] loratadine 10 mg tablet 10 mg PO DAILY 10/20/16 [History Last Taken Unknown] meloxicam 7.5 mg tablet (Mobic) 7.5 mg PO BID PRN PRN inflammation 10/20/16 [History Last Taken Unknown] metformin 500 mg tablet 500 mg PO 4X/DAY 10/20/16 [History Last Taken Unknown] metronidazole 0.75 % (37.5 mg/5 gram) vaginal gel (Vandazole) 1 applic VG DAILY PRN vaginal itch 10/20/16 [History Last Taken Unknown] multivitamin (Daily Multiple tablet) 1 ea PO DAILY 10/20/16 [History Last Taken Unknown] naproxen 500 mg tablet 500 mg PO BID 10/20/16 [History Last Taken Unknown] nystatin 100,000 unit/gram topical ointment 1 applic topical QODAY 10/20/16 [History Last Taken Unknown] omeprazole 20 mg capsule,delayed release 20 mg PO DAILY 10/20/16 [History Last Taken Unknown] pregabalin 150 mg capsule (Lyrica) 150 mg PO BID 10/20/16 [History Last Taken Unknown] promethazine 25 mg tablet 25 mg PO Q8H PRN PRN Nausea 10/20/16 [History Last Taken Unknown] rizatriptan 10 mg disintegrating tablet 10 mg PO X1 10/20/16 [History Last Taken Unknown] simvastatin 20 mg tablet 20 mg PO QHS 10/20/16 [History Last Taken Unknown] spironolactone 100 mg tablet (Aldactone) 100 mg PO DAILY 10/20/16 [History Last Taken Unknown] triamcinolone acetonide 55 mcg nasal spray aerosol (Nasacort) 1 spray NS BID 10/20/16 [History Last Taken Unknown] amlodipine 5 mg tablet 5 mg PO DAILY ##30 10/27/16 [Rx Last Taken Unknown] tizanidine 4 mg tablet 0.5 tab PO BID #30 tabs 10/27/16 [Rx Last Taken Unknown] doxycycline monohydrate 100 mg capsule 100 mg PO BID #20 caps 10/10/21 [Rx Last Taken Unknown] meclizine 25 mg tablet 25 mg PO 4X/DAY PRN PRN Dizziness #20 tabs 11/11/23 [Rx Last Taken Unknown] atorvastatin 40 mg tablet 40 mg PO DAILY 11/19/23 [History Last Taken Unknown] oseltamivir 75 mg capsule 75 mg PO BID #10 CAPSULES 11/19/23 [Rx Last Taken Unknown] Allergy/AdvReac Type Severity Reaction Status Date / Time buprenorphine Allergy PT UNSURE Verified 01/21/24 20:37 OF REACTION cefaclor [From Ceclor] Allergy Unknown Verified 01/21/24 20:37 Cephalosporins Allergy Unknown Verified 01/21/24 20:37 codeine Allergy Rash Verified 01/21/24 20:37 Corticosteroids Allergy Other Verified 01/21/24 20:37 (Glucocorticoids) [steroids] erythromycin base Allergy Unknown Verified 01/21/24 20:37 fentanyl Allergy Rash Verified 01/21/24 20:37 isopropyl alcohol Allergy Rash Verified 01/21/24 20:37 latex Allergy PT UNSURE Verified 01/21/24 20:37 OF REACTION levothyroxine Allergy Other Verified 01/21/24 20:37 mold Allergy Unknown Verified 01/21/24 20:37 nitrofurantoin Allergy Other Verified 01/21/24 20:37 [From Macrobid] oats Allergy Abd Verified 01/21/24 20:37 cramps/diarrhea Opioids - Morphine Analogues Allergy NEEDS Verified 01/21/24 20:37 FOLLOW-UP oxycodone Allergy Vomiting Verified 01/21/24 20:37 Penicillins Allergy Rash Verified 01/21/24 20:37 Sulfa (Sulfonamide Allergy Rash Verified 01/21/24 20:37 Antibiotics) sulfamethoxazole Allergy Unknown Verified 01/21/24 20:37 [From Bactrim] tramadol HCl [From Ultram] Allergy Unknown Verified 01/21/24 20:37 trimethoprim [From Bactrim] Allergy Unknown Verified 01/21/24 20:37 wheat bran Allergy Abd Verified 01/21/24 20:37 [From Senokot Wheat Bran] cramps/diarrhea whey Allergy Abd Verified 01/21/24 20:37 cramps/diarrhea Surgical History Hx of nasal septoplasty Hx of thyroidectomy Social History housing: house Smoking Status: Never smoker ROS ROS ED Constitutional Constitutional ED: Reports fever(s) and subjective; Denies chills Eyes Eyes: Denies change in vision or discharge from eye(s) ENT ENT ED: Denies discharge from eye(s), rhinorrhea or sore throat Cardiovascular Cardiovascular: Denies chest pain or palpitations Respiratory/Chest Respiratory/Chest: Denies cough or dyspnea Gastrointestinal Gastrointestinal: Denies abdominal pain, nausea or vomiting Genitourinary Genitourinary ED: Denies dysuria Musculoskeletal Musculoskeletal: Reports myalgias; Denies back pain or extremity pain Integumentary Denies Abrasions or rash Neurologic Neurologic: Reports headache(s); Denies weakness Psychiatric Psychiatric: Reports anxiety; Denies depression Allergic/Immunologic Allergic/Immunologic ED: Denies lip swelling or urticaria EXAM Physical Exam Const Vital Signs: 01/21/24 20:31 Temperature 96.9 F L Temperature Source Temporal Pulse Rate 76 Respiratory Rate 18 Blood Pressure 172/87 H Blood Pressure Mean 115 Pulse Ox 100 Oxygen Delivery Method Room Air Positive well nourished and well developed General Appearance ED: well developed HEENT Reports moist mucous membranes Eyes EOMs intact bilaterally Chest Wall inspection of chest normal and palpation of chest normal Resp normal respiratory effort and clear to auscultation bilaterally Cardio regular rate and regular rhythm GI non-tender Palpation: soft Extremity normal to inspection Neuro oriented x3 and no sensory deficits noted Motor Exam: strength 5/5 throughout Psych Mood & Affect: anxious Skin no rashes or lesions noted MDM MDM MDM Narrative Medical decision making narrative: IV line established. Patient given fluids along with Toradol and Zofran. Labwork obtained to evaluate for leukocytosis, anemia, and electrolyte derangement. EKG obtained to evaluate for cardiac arrhythmia/ischemia. History & Record Review Discussion w/independent historian: Patient Lab Data Attestation: I reviewed the patient's lab results. Labs: Laboratory Results - last 24 hr 01/21/24 21:05 WBC 8.8 RBC 4.71 Hgb 14.1 Hct 42.7 MCV 90.7 MCH 29.9 MCHC 33.0 RDW Std Deviation 42.3 RDW Coeff of Samy 12.5 Plt Count 287 MPV 9.4 Immature Gran % (Auto) 0.100 Neut % (Auto) 66.7 Lymph % (Auto) 20.6 [place] % (Auto) 11.4 H Eos % (Auto) 0.6 Baso % (Auto) 0.6 Absolute Neuts (auto) 5.9 Absolute Lymphs (auto) 1.81 Nucleated RBC % 0 Sodium 137 Potassium 3.7 Chloride 104 Carbon Dioxide 27.0 Anion Gap 6 BUN 10 Creatinine 0.78 Estim Creat Clear Calc 72.20 Est GFR (MDRD) Af Amer 96 Est GFR (MDRD) Non-Af 80 BUN/Creatinine Ratio 12.8 Glucose 121 H Calcium 9.5 Treatment and Re-Evaluation :: On repeat evaluation patient states she is feeling improved with some fluids, Toradol, and Zofran. CBC was normal white count 8.8 with normal differential. Hemoglobin is 14.1. Chemistry studies are unremarkable other than a glucose of 121. EKG is sinus rhythm at 68 bpm. No evidence of acute ischemia. Patient is comfortable with discharge to home at this time. She has estradiol to last her through the weekend and will follow-up with her doctor next week. Nursing staff also did place a social work consult to see if they can help her with her medications. Return instructions given. Discharge Plan Triage Chief Complaint: Headache ED Provider: Marilia Carr Dx/Rx/DC Orders Clinical Impression: Migraine Instructions: ED, Migraine (Classical) Prescriptions: No Action multivitamin [Daily Multiple] 1 EACH tablet 1 ea PO DAILY nystatin 1 APPLIC ointment 1 applic topical QODAY meloxicam [Mobic] 7.5 MG tablet 7.5 mg PO BID PRN PRN (Reason: inflammation) promethazine 25 MG tablet 25 mg PO Q8H PRN PRN (Reason: Nausea) omeprazole 20 MG capsule 20 mg PO DAILY budesonide [Pulmicort] 0.5 MG/2 ML suspension for nebulization 0.5 mg IH BID estradiol [Estrace] 2 MG tablet 2 mg PO DAILY alcohol swabs [Alcohol Prep Swabs] 1 EACH pads, medicated 1 ea TP DAILY epinephrine [EpiPen] 0.3 MG/0.3 ML auto-injector 0.3 mg IJ X1 PRN (Reason: allergic reaction) ipratropium bromide 1 SPRAY spray,non-aerosol 1 spray NASAL DAILY naproxen 500 MG tablet 500 mg PO BID pregabalin [Lyrica] 150 MG capsule 150 mg PO BID chlorhexidine gluconate 15 ML towelette 1 applic TP DAILY metformin 500 MG tablet 500 mg PO 4X/DAY metronidazole [Vandazole] 1 APPLIC gel 1 applic VG DAILY PRN (Reason: vaginal itch) spironolactone [Aldactone] 100 MG tablet 100 mg PO DAILY estropipate 1.5 MG tablet 1.5 mg PO DAILY cyproheptadine 4 MG tablet 4 mg PO BID PRN PRN (Reason: Itching) estradiol 1 MG tablet 1 mg PO TID rizatriptan 10 MG tablet,disintegrating 10 mg PO X1 simvastatin 20 MG tablet 20 mg PO QHS triamcinolone acetonide [Nasacort] 1 SPRAY aerosol,spray 1 spray NS BID loratadine 10 MG tablet 10 mg PO DAILY lactulose [Constulose] 10 GM/15 ML solution 10 g PO DAILY Clobetasol Propionate/Emoll [Clobetasol Emollient 0.05% Crm] 15 GM Cream..G. 30 g TP DAILY PRN PRN (Reason: Itching) lisinopril 10 MG tablet 10 mg PO DAILY Qty: 30 0RF tizanidine 4 MG tablet 0.5 tab PO BID Qty: 30 1RF amlodipine 5 MG tablet 5 mg PO DAILY Qty: 30 1RF doxycycline monohydrate 100 MG capsule 100 mg PO BID Qty: 20 0RF atorvastatin 40 mg tablet 40 mg PO DAILY Patient Comments: take 1 tablet by mouth at bedtime oseltamivir [oseltamivir] 75 mg capsule 75 mg PO BID Qty: 10 0RF meclizine 25 mg tablet 25 mg PO 4X/DAY PRN PRN (Reason: Dizziness) Qty: 20 0RF Primary Care Provider: Mario Eckert Referrals: Mario Eckert MD [Primary Care Provider] - 1-2 Weeks Disposition Disposition: Home, Self Care
[2024-01-21 21:15] LABS: Absolute Lymphocyte Count 1.81 X10^3/uL (0.83-4.51); Absolute Neutrophil Count 5.9 X10^3/uL (2.0-7.7); Basophil# 0.05 X10^3/uL; Basophil% 0.6 % (0-1); Eosinophil# 0.05 X10^3/uL; Eosinophils% 0.6 % (0-5); Hematocrit 42.7 % (37-47); Hemoglobin 14.1 g/dL (12.0-15.0); Lymphocyte # 1.81 X10^3/ul (0.83-4.51); Lymphocyte % 20.6 % (19-41); Mean Corpuscular Hgb 29.9 pg (27.0-32.0); Mean Corpuscular Volume 90.7 fL (81-99); Mean Platelet Vol. 9.4 fl (6.2-12.0); Monocyte% 11.4 % (0-10); NRBC Flagged by Analyzer 0 % (0-5); Neutrophil # 5.85 X10^3/uL (2.7-7.7); Neutrophil % 66.7 % (47-70); Platelet Count 287 K/mm3 (150-450); RBC Distribution Width CV 12.5 % (11.6-14.6); RBC Distribution Width SD 42.3 fl (35.1-43.9); Red Blood Count 4.71 M/mm3 (4.2-5.4); White Blood Count 8.8 K/mm3 (4.4-11.0)
--- NOTE | 2024-01-21 21:15 | ED.RN ---
Patient requests social work consult. She states she needs help with medication planning and scheduling appointments. She states she needs help with resources and doesn't know where to turn.
[2024-01-21] MEDS: 0.9% Normal Saline (1000mL) 1,000 ML 1000 ML IV (21:17)
[2024-01-21] MEDS: Ondansetron 4 MG/2 ML Vial IV (21:17)
[2024-01-21] MEDS: Ketorolac 15 MG/ML Vial IV (21:18)
[2024-01-21 21:28] LABS: Anion Gap 6 (5-15); BUN 10 mg/dL (7-18); BUN/Creat Ratio 12.8 RATIO (10-20); Calcium,Total 9.5 mg/dL (8.5-10.1); Chloride 104 mmol/L (98-107); Creatinine, Serum 0.78 mg/dL (0.55-1.02); EST Glomerular Filtration Rate 80 mL/min (>60); Est Glom Filt Rate - Afr Amer 96 mL/min (>60); Glucose 121 mg/dL (74-106); Potassium 3.7 mmol/L (3.5-5.1); Sodium Level 137 mmol/L (136-145)
[2024-01-21 21:54] VITALS: BP 135/74; PULSE 79; RESP 18; TEMP 36.4; O2SAT 99
== END 2024-01-21 21:56 | disposition home or self-care (01) ==
PROVIDERS: Emergency Provider Emergency Medicine; PCP Internal Medicine; Visit Provider Emergency Medicine
DX: G43.909 Migraine, unspecified, not intractable, without status migrainosus (principal)
CPT/HCPCS: 80048; 85025; 93005; 96361; 96374; 96375; 99283; J7030; A4216; J2405

== ENCOUNTER → 2024-02-17 | Outpatient (CLI) | payer MEDICAID, SELFPAY ==
--- NOTE | 2024-02-17 15:56 | BD_ITS ---
STUDY: DUAL ENERGY X-RAY ABSORPTIOMETRY / DXA REASON FOR EXAM: Female, 63 years old. V76.12ScreeningBONE DENSITY REASON FOR EXAM TECHNIQUE: Bone Mineral Density (BMD) measurements of lumbar spine and bilateral hips were obtained. COMPARISON: Comparison is made with prior study dated May 02, 2015. FINDINGS: Lumbar Spine (L1-L4): g/cm2 (0.984) / T-score (-0.5) / Z-score (1.0) Findings are suggestive of normal bone density with a low fracture risk. Left Femur Total: g/cm2 (1.019) / T-score (0.6) / Z-score (1.7) Left Femoral Neck: g/cm2 (0.874) / T-score (0.2) / Z-score (1.6) Right Femur Total: g/cm2 (0.884) / T-score (-0.5) / Z-score (0.5) Right Femoral Neck: g/cm2 (0.819) / T-score (-0.3) / Z-score (1.1) The T-Scores on the most recent prior examination were: Lumbar Spine (L1-L4): There has been improvement of bone density since the previous examination. Left Femur Total: which represents an improvement of 2.2%. Right Femur Total: which represents a worsening of 4.1%. BD/Dexa Bone Density Study IMPRESSION: The patient is considered normal as outlined below according to World Hal Organization (WHO) criteria with a low fracture risk. There has been improvement of bone density since the previous examination. Reference Information: The T-score is the number of standard deviations above or below the standard which is normal for young adults at their peak bone mineral density. The World Health Organization (WHO) interprets the T-scores as follows: Above -1 Normal bone density Between -1 and -2.5 Osteopenia Equal to / or below -2.5 Osteoporosis As a practical clinical guideline, osteopenia may be graded as follows: Mild -1 through -1.5 Moderate -1.6 through -2.0 Severe -2.1 through -2.4 The Z-score is the number of standard deviations above or below age-matched controls. A Z-score of less than -1.5 would be considered abnormal. References: 1. NIH Osteoporosis and Related Bone Diseases www osteo.org 2. International Society for Clinical Densitometry www iscd.org 3. National Osteoporosis Foundation www nof.org Electronically Signed: Eligio Smallwood MD at 12:55 EDT ,
--- NOTE | 2024-02-17 15:57 | BI_ITS ---
MAMMOGRAPHY - BILATERAL SCREENING REASON FOR EXAM: Female, 63 years old. Routine annual screening examination. PERTINENT HISTORY: Aunt with breast cancer. TECHNIQUE: Digital bilateral breast debby (3D mammographic acquisition) in the CC and MLO projections. 2-D mediolateral oblique (MLO) and craniocaudad (CC) views of both breasts were obtained. CAD: Full Field Digital Mammography with Computer Added Detection was performed. COMPARISON: Comparison is made with prior outside examination dated February 24, 2022 and July 14, 2016. FINDINGS: Breast Composition: The breasts are heterogeneously dense, which may obscure small masses. There are no dominant masses or suspicious calcifications. No other significant abnormalities are identified. There has been no significant change since the prior study. BI/SCRN MAMM (CAD)W/DEBBY BILAT IMPRESSION: Stable bilateral screening mammogram. Yearly follow-up mammogram recommended. (A) ASSESSMENT CATEGORY: BIRADS Category 1: Negative. A letter regarding these results will be sent to the patient by the facility within 30 days. Approximately 10% of breast cancers are not detected by mammography. A normal mammogram should not delay biopsy of a clinically suspicious abnormality. [id number] Electronically Signed: Eligio Smallwood MD at 8:39 EDT ,
== END | disposition home or self-care (01) ==
LOC: OPBD 15:55
PROVIDERS: PCP Internal Medicine; Referring Provider Nurse Practitioner Women's Health; Visit Provider Nurse Practitioner Women's Health
DX: Z01.419 Encounter for gynecological examination (general) (routine) without abnormal findings (principal); Z12.31 Encounter for screening mammogram for malignant neoplasm of breast; Z78.0 Asymptomatic menopausal state; Z13.820 Encounter for screening for osteoporosis; Z80.3 Family history of malignant neoplasm of breast
CPT/HCPCS: 77063; 77067; 77080

== ENCOUNTER 2024-03-22 21:36 | Emergency (ER) | payer MEDICAID, SELFPAY ==
[2024-03-22 21:36] VITALS: BP 141/84; PULSE 78; RESP 16; TEMP 36.2; O2SAT 98; BMI 25.4
[2024-03-22 23:36] VITALS: BP 137/71; PULSE 64; RESP 13; O2SAT 98
[2024-03-23 01:00] VITALS: BP 131/97; PULSE 75; RESP 17; O2SAT 99
--- NOTE | 2024-03-23 01:07 | EX.ED.DYSGE1 ---
HPI History of Present Illness Chief Complaint: Allergic Reaction Informant: patient Narrative Narrative: Patient is 63-year-old female with past medical history fibromyalgia and hypothyroidism and multiple allergies. She states that she takes Melanie-D daily and has done so for multiple years. She states she has been out of her medication and cannot get it refilled and therefore has noticed over the last few days increased redness swelling and itching to her face neck and arms. She denies any new exposure or difficulty breathing or swallowing. She states that she had increased inflammation around her nose which she gets in the past and feels that it is now infected. She states typically when she gets this way she will need placed on a Medrol Dosepak but as she cannot get into her doctor for evaluation presents to the hospital [facility] Medical History Constipation Adhesions due to endometriosis Hypothyroid HTN (hypertension) Diabetic neuropathy Type 2 diabetes mellitus Hypercholesteremia Chronic pain Fibromyalgia Lumbago Cervicalgia PCOS (polycystic ovarian syndrome) Migraine aura, persistent Celiac disease Thyroid disease Home Medications ?Medication ?Instructions ?Recorded ?Last Taken ?Type Clobetasol Propionate/Emoll 30 g TP DAILY PRN PRN Itching 10/20/16 Unknown History [Clobetasol Emollient 0.05% Crm] alcohol swabs (Alcohol Prep Swabs) 1 ea TP DAILY 10/20/16 Unknown History budesonide 0.5 mg/2 mL suspension 0.5 mg IH BID 10/20/16 Unknown History for nebulization (Pulmicort) chlorhexidine gluconate 2 % 1 applic TP DAILY 10/20/16 Unknown History towelette cyproheptadine 4 mg tablet 4 mg PO BID PRN PRN Itching 10/20/16 Unknown History epinephrine 0.3 mg/0.3 mL 0.3 mg X1 PRN allergic reaction 10/20/16 Unknown History injection, auto-injector (EpiPen) estradiol 1 mg tablet 1 mg PO TID 10/20/16 Unknown History estradiol 2 mg tablet (Estrace) 2 mg PO DAILY 10/20/16 Unknown History estropipate 1.5 mg tablet 1.5 mg PO DAILY 10/20/16 Unknown History ipratropium bromide 42 mcg (0.06 1 spray DAILY 10/20/16 Unknown History %) nasal spray lactulose 10 gram/15 mL oral 10 g PO DAILY 10/20/16 Unknown History solution (Constulose) lisinopril 10 mg tablet 10 mg PO DAILY #30 tabs 10/20/16 Unknown Rx loratadine 10 mg tablet 10 mg PO DAILY 10/20/16 Unknown History meloxicam 7.5 mg tablet (Mobic) 7.5 mg PO BID PRN PRN inflammation 10/20/16 Unknown History metformin 500 mg tablet 500 mg PO 4X/DAY 10/20/16 Unknown History metronidazole 0.75 % (37.5 mg/5 1 applic VG DAILY PRN vaginal itch 10/20/16 Unknown History gram) vaginal gel (Vandazole) multivitamin (Daily Multiple 1 ea PO DAILY 10/20/16 Unknown History tablet) naproxen 500 mg tablet 500 mg PO BID 10/20/16 Unknown History nystatin 100,000 unit/gram topical 1 applic topical QODAY 10/20/16 Unknown History ointment omeprazole 20 mg capsule,delayed 20 mg PO DAILY 10/20/16 Unknown History release pregabalin 150 mg capsule (Lyrica) 150 mg PO BID 10/20/16 Unknown History promethazine 25 mg tablet 25 mg PO Q8H PRN PRN Nausea 10/20/16 Unknown History rizatriptan 10 mg disintegrating 10 mg PO X1 10/20/16 Unknown History tablet simvastatin 20 mg tablet 20 mg PO QHS 10/20/16 Unknown History spironolactone 100 mg tablet 100 mg PO DAILY 10/20/16 Unknown History (Aldactone) triamcinolone acetonide 55 mcg 1 spray NS BID 10/20/16 Unknown History nasal spray aerosol (Nasacort) amlodipine 5 mg tablet 5 mg PO DAILY ##30 10/27/16 Unknown Rx tizanidine 4 mg tablet 0.5 tab PO BID #30 tabs 10/27/16 Unknown Rx doxycycline monohydrate 100 mg 100 mg PO BID #20 caps 10/10/21 Unknown Rx capsule meclizine 25 mg tablet 25 mg PO 4X/DAY PRN PRN Dizziness 11/11/23 Unknown Rx #20 tabs atorvastatin 40 mg tablet 40 mg PO DAILY 11/19/23 Unknown History oseltamivir 75 mg capsule 75 mg PO BID #10 CAPSULES 11/19/23 Unknown Rx doxycycline hyclate 50 mg capsule 50 mg PO TID 10 days #30 caps 03/23/24 Unknown Rx loratadine-pseudoephedrine ER 10 1 tab PO DAILY #30 tabs 03/23/24 Unknown Rx mg-240 mg tablet,extended [id number] (Claritin-D 24 Hour) methylprednisolone 4 mg tablets in See Rx Instructions PO .COMPLEX 03/23/24 Unknown Rx a dose pack (Medrol (Michael)) #21 tabs Allergy/AdvReac Type Severity Reaction Status Date / Time buprenorphine Allergy PT UNSURE Verified 03/22/24 21:36 OF REACTION cefaclor (From Ceclor) Allergy Unknown Verified 03/22/24 21:36 Cephalosporins Allergy Unknown Verified 03/22/24 21:36 codeine Allergy Rash Verified 03/22/24 21:36 Corticosteroids Allergy Other Verified 03/22/24 21:36 (Glucocorticoids) (steroids) erythromycin base Allergy Unknown Verified 03/22/24 21:36 fentanyl Allergy Rash Verified 03/22/24 21:36 isopropyl alcohol Allergy Rash Verified 03/22/24 21:36 latex Allergy PT UNSURE Verified 03/22/24 21:36 OF REACTION levothyroxine Allergy Other Verified 03/22/24 21:36 mold Allergy Unknown Verified 03/22/24 21:36 nitrofurantoin (From Allergy Other Verified 03/22/24 21:36 Macrobid) oats Allergy Abd Verified 03/22/24 21:36 cramps/diarrhea Opioids - Morphine Analogues Allergy NEEDS Verified 03/22/24 21:36 FOLLOW-UP oxycodone Allergy Vomiting Verified 03/22/24 21:36 Penicillins Allergy Rash Verified 03/22/24 21:36 Sulfa (Sulfonamide Allergy Rash Verified 03/22/24 21:36 Antibiotics) sulfamethoxazole (From Allergy Unknown Verified 03/22/24 21:36 Bactrim) tramadol HCl (From Ultram) Allergy Unknown Verified 03/22/24 21:36 trimethoprim (From Bactrim) Allergy Unknown Verified 03/22/24 21:36 wheat bran (From Senokot Allergy Abd Verified 03/22/24 21:36 Wheat Bran) cramps/diarrhea whey Allergy Abd Verified 03/22/24 21:36 cramps/diarrhea Surgical History Hx of nasal septoplasty Hx of thyroidectomy Social History housing: house Smoking Status: Never smoker ROS ROS ED Constitutional Constitutional ED: Denies chills or fever(s) Eyes Eyes: Denies change in vision or other ENT ENT ED: Reports rhinorrhea; Denies sore throat Cardiovascular Cardiovascular: Denies chest pain Respiratory/Chest Respiratory/Chest: Denies cough or dyspnea Gastrointestinal Gastrointestinal: Denies abdominal pain, diarrhea, nausea or vomiting Genitourinary Genitourinary ED: Denies dysuria Musculoskeletal Musculoskeletal: Denies myalgias Integumentary Reports rash Neurologic Neurologic: Denies headache(s) Hematologic/Lymphatic Hematologic/Lymphatic: Denies easy bleeding or easy bruising Allergic/Immunologic Allergic/Immunologic ED: Denies mouth swelling or tongue swelling EXAM Physical Exam Const Vital Signs: 03/22/24 21:36 03/22/24 23:36 03/23/24 01:00 Temperature 97.1 F L Temperature Source Temporal Pulse Rate 78 64 75 Respiratory Rate 16 13 17 Blood Pressure 141/84 H 137/71 H 131/97 H Blood Pressure Mean 103 93 108 Pulse Ox 98 98 99 Oxygen Delivery Method Room Air Room Air Room Air 03/23/24 01:24 Temperature 98.4 F Temperature Source Pulse Rate 71 Respiratory Rate 18 Blood Pressure 131/97 H Blood Pressure Mean 108 Pulse Ox 98 Oxygen Delivery Method Positive well nourished and well developed General Appearance ED: well developed HEENT Reports moist mucous membranes HEENT Narrative: No tongue or lip swelling noted no oral lesions no airway edema or compromise Patient does have soft tissue swelling with erythema and warmth along the nasolabial fold concerning for developing cellulitis There is mild erythema and soft tissue swelling to the face diffusely this was extends down into the neck most consistent with acute allergic reaction without vesicular pustule changes Eyes PERRL and EOMs intact bilaterally General Eye ED: Negative for pale conjunctiva or scleral icterus Neck supple Neck Narrative: No nuchal rigidity or meningeal signs noted Resp normal respiratory effort and clear to auscultation bilaterally Resp Narrative: No nasal flaring retractions tachypnea or accessory muscle use Cardio regular rate and regular rhythm Extremity normal to inspection Neuro oriented x3, CN's II-XII intact bilaterally and no sensory deficits noted Sensorium / Orientation: alert Motor Exam: strength 5/5 throughout Psych mental status grossly normal Skin Skin Narrative: Faint blanchable erythema across the face and scalp as well as the neck and also the dorsal aspects of bilateral arms consistent with acute allergic reaction. No involvement of the palms or soles. No secondary changes to suggest infection MDM MDM MDM Narrative Medical decision making narrative: Patient presented to the ER mildly hypertensive but has a past medical history of this. She reported having recurrent outbreaks when she is not on her Claritin-D and has not been on the medication for the last 1 to 2 weeks. She does not have signs of respiratory distress or airway compromise and she is not hypoxic and therefore do not feel there is need for imaging or laboratory studies. Also she does not have findings to suggest angioedema she does not need epinephrine. The nasolabial folds are asymmetrically swollen and erythematous and painful concerning for developing cellulitis. Therefore she was placed on antibiotics. She states that in the past she has done well with a Medrol Dosepak and therefore this will be given to help with the inflammatory process but as she is not showing signs of systemic infection or need for supplemental oxygen or angioedema she is otherwise safe for discharge History & Record Review Discussion w/independent historian: Patient Discharge Plan Triage Chief Complaint: Allergic Reaction ED Provider: Rachid Arevalo Dx/Rx/DC Orders Clinical Impression: Allergic reaction, Cellulitis of nose, Hypertension Instructions: ED General Allergic Reactions, ED Cellulitis, Facial Prescriptions: New methylprednisolone [Medrol (Michael)] 4 mg tablets,dose pack See Rx Instructions .ROUTE .COMPLEX Qty: 21 0RF Rx Instructions: Take as directed for 6 days Claritin-D 24 Hour 10-240 mg tablet extended release 24 hr 1 tab PO DAILY Qty: 30 2RF doxycycline hyclate 50 mg capsule 50 mg PO TID 10 Days Qty: 30 0RF No Action multivitamin [Daily Multiple] 1 EACH tablet 1 ea PO DAILY nystatin 1 APPLIC ointment 1 applic topical QODAY meloxicam [Mobic] 7.5 MG tablet 7.5 mg PO BID PRN PRN (Reason: inflammation) promethazine 25 MG tablet 25 mg PO Q8H PRN PRN (Reason: Nausea) omeprazole 20 MG capsule 20 mg PO DAILY budesonide [Pulmicort] 0.5 MG/2 ML suspension for nebulization 0.5 mg IH BID estradiol [Estrace] 2 MG tablet 2 mg PO DAILY alcohol swabs [Alcohol Prep Swabs] 1 EACH pads, medicated 1 ea TP DAILY epinephrine [EpiPen] 0.3 MG/0.3 ML auto-injector 0.3 mg IJ X1 PRN (Reason: allergic reaction) ipratropium bromide 1 SPRAY spray,non-aerosol 1 spray NASAL DAILY naproxen 500 MG tablet 500 mg PO BID pregabalin [Lyrica] 150 MG capsule 150 mg PO BID chlorhexidine gluconate 15 ML towelette 1 applic TP DAILY metformin 500 MG tablet 500 mg PO 4X/DAY metronidazole [Vandazole] 1 APPLIC gel 1 applic VG DAILY PRN (Reason: vaginal itch) spironolactone [Aldactone] 100 MG tablet 100 mg PO DAILY estropipate 1.5 MG tablet 1.5 mg PO DAILY cyproheptadine 4 MG tablet 4 mg PO BID PRN PRN (Reason: Itching) estradiol 1 MG tablet 1 mg PO TID rizatriptan 10 MG tablet,disintegrating 10 mg PO X1 simvastatin 20 MG tablet 20 mg PO QHS triamcinolone acetonide [Nasacort] 1 SPRAY aerosol,spray 1 spray NS BID loratadine 10 MG tablet 10 mg PO DAILY lactulose [Constulose] 10 GM/15 ML solution 10 g PO DAILY Clobetasol Propionate/Emoll [Clobetasol Emollient 0.05% Crm] 15 GM Cream..G. 30 g TP DAILY PRN PRN (Reason: Itching) lisinopril 10 MG tablet 10 mg PO DAILY Qty: 30 0RF tizanidine 4 MG tablet 0.5 tab PO BID Qty: 30 1RF amlodipine 5 MG tablet 5 mg PO DAILY Qty: 30 1RF doxycycline monohydrate 100 MG capsule 100 mg PO BID Qty: 20 0RF atorvastatin 40 mg tablet 40 mg PO DAILY Patient Comments: take 1 tablet by mouth at bedtime oseltamivir [oseltamivir] 75 mg capsule 75 mg PO BID Qty: 10 0RF meclizine 25 mg tablet 25 mg PO 4X/DAY PRN PRN (Reason: Dizziness) Qty: 20 0RF Primary Care Provider: Mario Eckert Referrals: Mario Eckert MD [Primary Care Provider] - Print Language: Icelandic Disposition Disposition: Home, Self Care Discharge Date/Time: 03/23/24 01:28
[2024-03-23] MEDS: Doxycycline 100 MG CAPSULE PO (01:19)
[2024-03-23] MEDS: dexAMETHasone 10 MG/ML Vial PO.IVFORM (01:20)
[2024-03-23 01:24] VITALS: BP 131/97; PULSE 71; RESP 18; TEMP 36.9; O2SAT 98
== END 2024-03-23 01:28 | disposition home or self-care (01) ==
PROVIDERS: Emergency Provider Emergency Medicine; PCP Internal Medicine; Visit Provider Emergency Medicine
DX: T78.40XA Allergy, unspecified, initial encounter (principal); E11.9 Type 2 diabetes mellitus without complications; L03.90 Cellulitis, unspecified; I10 Essential (primary) hypertension; E78.00 Pure hypercholesterolemia, unspecified; E03.9 Hypothyroidism, unspecified; M79.7 Fibromyalgia; E28.2 Polycystic ovarian syndrome
CPT/HCPCS: 99283

== ENCOUNTER 2024-04-17 23:07 | Emergency (ER) | payer MEDICAID, SELFPAY ==
[2024-04-17 23:08] VITALS: BP 160/92; PULSE 95; RESP 18; TEMP 36.4; O2SAT 98; BMI 24.3
[2024-04-17] MEDS: MethylPREDNISolone 125 MG/2 ML Vial IV (23:52)
[2024-04-17] MEDS: DiphenhydrAMINE 50 MG/ML Syringe IV (23:52)
[2024-04-17] MEDS: Famotidine 20mg IV Push Syringe Q24 300 MG IV (23:53)
[2024-04-18 01:08] VITALS: BP 114/70; PULSE 67; RESP 16; TEMP 36.7; O2SAT 99
--- NOTE | 2024-04-18 01:12 | EDS_ITS ---
HPI History of Present Illness Chief Complaint: Rash Informant: patient and spouse/S.O. Narrative Narrative: Patient is a 63-year-old female with past med history of hypertension hyperlipidemia diabetes and multiple allergies. She states that she has been using a new facial/scalp powder and over the last few days has now developed redness and itching to the face and neck. She states that she examined the bottle more closely as she was having changes of skin inflammation and noticed that the new powder does contain aloe which she states she is allergic to. She denies any trouble breathing or swallowing and states that the rash is mainly on her face and neck which would correlate with the location of the exposure. She denies any trouble breathing or swallowing and states has been no fevers or chills but with the persistent irritation and itch she comes in for evaluation [facility] Medical History Constipation Adhesions due to endometriosis Hypothyroid HTN (hypertension) Diabetic neuropathy Type 2 diabetes mellitus Hypercholesteremia Chronic pain Fibromyalgia Lumbago Cervicalgia PCOS (polycystic ovarian syndrome) Migraine aura, persistent Celiac disease Thyroid disease Home Medications ?Medication ?Instructions ?Recorded ?Last Taken ?Type Clobetasol Propionate/Emoll 30 g TP DAILY PRN PRN Itching 10/20/16 Unknown History [Clobetasol Emollient 0.05% Crm] alcohol swabs (Alcohol Prep Swabs) 1 ea TP DAILY 10/20/16 Unknown History budesonide 0.5 mg/2 mL suspension 0.5 mg IH BID 10/20/16 Unknown History for nebulization (Pulmicort) chlorhexidine gluconate 2 % 1 applic TP DAILY 10/20/16 Unknown History towelette epinephrine 0.3 mg/0.3 mL 0.3 mg X1 PRN allergic reaction 10/20/16 Unknown History injection, auto-injector (EpiPen) estradiol 1 mg tablet 3 mg PO TID 10/20/16 Unknown History estropipate 1.5 mg tablet 1.5 mg PO DAILY 10/20/16 Unknown History ipratropium bromide 42 mcg (0.06 1 spray DAILY 10/20/16 Unknown History %) nasal spray lactulose 10 gram/15 mL oral 10 g PO DAILY 10/20/16 Unknown History solution (Constulose) lisinopril 10 mg tablet 10 mg PO DAILY #30 tabs 10/20/16 Unknown Rx meloxicam 7.5 mg tablet (Mobic) 7.5 mg PO BID PRN PRN inflammation 10/20/16 Unknown History metformin 500 mg tablet 500 mg PO 4X/DAY 10/20/16 Unknown History metronidazole 0.75 % (37.5 mg/5 1 applic VG DAILY PRN vaginal itch 10/20/16 Unknown History gram) vaginal gel (Vandazole) multivitamin (Daily Multiple 1 ea PO DAILY 10/20/16 Unknown History tablet) naproxen 500 mg tablet 500 mg PO BID 10/20/16 Unknown History omeprazole 20 mg capsule,delayed 20 mg PO DAILY 10/20/16 Unknown History release pregabalin 150 mg capsule (Lyrica) 150 mg PO BID 10/20/16 Unknown History rizatriptan 10 mg disintegrating 10 mg PO X1 10/20/16 Unknown History tablet simvastatin 20 mg tablet 20 mg PO QHS 10/20/16 Unknown History spironolactone 100 mg tablet 100 mg PO DAILY 10/20/16 Unknown History (Aldactone) triamcinolone acetonide 55 mcg 1 spray NS BID 10/20/16 Unknown History nasal spray aerosol (Nasacort) amlodipine 5 mg tablet 5 mg PO DAILY ##30 10/27/16 Unknown Rx meclizine 25 mg tablet 25 mg PO 4X/DAY PRN PRN Dizziness 11/11/23 Unknown Rx #20 tabs atorvastatin 40 mg tablet 40 mg PO DAILY 11/19/23 Unknown History loratadine-pseudoephedrine ER 10 1 tab PO DAILY #30 tabs 03/23/24 Unknown Rx mg-240 mg tablet,extended [id number] (Claritin-D 24 Hour) albuterol sulfate 90 mcg/actuation inhalation 04/17/24 Unknown History aerosol inhaler desonide 0.05 % topical cream 1 applic topical TID PRN skin 04/18/24 Unknown Rx irritation #60 grams prednisone 10 mg tablet 10 mg PO DAILY #63 tabs 04/18/24 Unknown Rx Allergy/AdvReac Type Severity Reaction Status Date / Time buprenorphine Allergy PT UNSURE Verified 04/17/24 23:13 OF REACTION cefaclor (From Ceclor) Allergy Unknown Verified 04/17/24 23:13 Cephalosporins Allergy Unknown Verified 04/17/24 23:13 codeine Allergy Rash Verified 04/17/24 23:13 Corticosteroids Allergy Other Verified 04/17/24 23:13 (Glucocorticoids) (steroids) erythromycin base Allergy Unknown Verified 04/17/24 23:13 fentanyl Allergy Rash Verified 04/17/24 23:13 isopropyl alcohol Allergy Rash Verified 04/17/24 23:13 latex Allergy PT UNSURE Verified 04/17/24 23:13 OF REACTION levothyroxine Allergy Other Verified 04/17/24 23:13 mold Allergy Unknown Verified 04/17/24 23:13 nitrofurantoin (From Allergy Other Verified 04/17/24 23:13 Macrobid) oats Allergy Abd Verified 04/17/24 23:13 cramps/diarrhea Opioids - Morphine Analogues Allergy NEEDS Verified 04/17/24 23:13 FOLLOW-UP oxycodone Allergy Vomiting Verified 04/17/24 23:13 Penicillins Allergy Rash Verified 04/17/24 23:13 Sulfa (Sulfonamide Allergy Rash Verified 04/17/24 23:13 Antibiotics) sulfamethoxazole (From Allergy Unknown Verified 04/17/24 23:13 Bactrim) tramadol HCl (From Ultram) Allergy Unknown Verified 04/17/24 23:13 trimethoprim (From Bactrim) Allergy Unknown Verified 04/17/24 23:13 wheat bran (From Senokot Allergy Abd Verified 04/17/24 23:13 Wheat Bran) cramps/diarrhea whey Allergy Abd Verified 04/17/24 23:13 cramps/diarrhea Surgical History Hx of nasal septoplasty Hx of thyroidectomy Social History housing: house Smoking Status: Never smoker ROS ROS ED Constitutional Constitutional ED: Denies chills or fever(s) Eyes Eyes: Denies blurry vision or change in vision ENT ENT ED: Denies sore throat Cardiovascular Cardiovascular: Denies chest pain Respiratory/Chest Respiratory/Chest: Denies cough or dyspnea Gastrointestinal Gastrointestinal: Denies abdominal pain, diarrhea, nausea or vomiting Genitourinary Genitourinary ED: Denies dysuria Musculoskeletal Musculoskeletal: Denies myalgias Integumentary Reports rash Neurologic Neurologic: Denies headache(s) Hematologic/Lymphatic Hematologic/Lymphatic: Denies easy bleeding or easy bruising Allergic/Immunologic Allergic/Immunologic ED: Denies mouth swelling or tongue swelling EXAM Physical Exam Const Vital Signs: 04/17/24 23:08 04/18/24 01:08 Temperature 97.6 F L 98.1 F Temperature Source Temporal Pulse Rate 95 67 Respiratory Rate 18 16 Blood Pressure 160/92 H 114/70 Blood Pressure Mean 114 84 Pulse Ox 98 99 Oxygen Delivery Method Room Air Positive well nourished and well developed General Appearance ED: well developed; Negative for pallor HEENT Reports moist mucous membranes HEENT Narrative: No tongue or lip swelling no oral lesions no airway edema or compromise Patient does have blanchable erythema along the left forehead and lower jaw region. This irritation and redness extends into the neck down to the anterior chest but does not pass below the collar of the shirt. No vesicular or pustule changes No obvious abscess formation No involvement of the palms or soles Eyes PERRL and EOMs intact bilaterally Neck supple Neck Narrative: Soft tissue changes to the neck as documented above Chest Wall palpation of chest normal Resp normal respiratory effort and clear to auscultation bilaterally Effort and Inspection: Negative for retractions or pain with movement Auscultation: Negative for rhonchi or wheezes Cardio regular rate and regular rhythm GI normal to inspection, nondistended, normoactive bowel sounds, non-tender, non- distended and no masses Auscultation: normoactive bowel sounds Palpation: soft Extremity normal to inspection Extremity Narrative: No asymmetric edema no pitting edema negative Homans' sign bilaterally Neuro oriented x3, CN's II-XII intact bilaterally and no sensory deficits noted Sensorium / Orientation: alert Motor Exam: strength 5/5 throughout Psych mental status grossly normal Skin Skin Narrative: Blanchable erythema to the scalp face and neck/upper chest consistent with acute allergic reaction as documented above No involvement of the palms or soles Rash does not cross barriers that were protected by clothing General Skin Exam: Negative for jaundice or pallor MDM MDM MDM Narrative Medical decision making narrative: Patient arrived to ER in no acute respiratory distress. Therefore there is no need for emergent airway stabilization. Without tongue or lip swelling I have low concern for anaphylaxis and do not feel the need for epinephrine. Without fever or oral lesions I have low concern for Cowan-Naun syndrome as well and there is no need for imaging or laboratory testing. As her history and exam is most consistent with a delayed hypersensitivity reaction/contact dermatitis should be given IV Solu-Medrol Benadryl and Pepcid. Patient was washed in the ER and there is no worsening of her symptoms and she did report feeling better after the prescribed medication. She remained in no signs of respiratory distre ss. Therefore as she is not displaying anaphylactic changes or infectious changes such as cellulitis or abscess and there is no signs of airway compromise she will be given symptomatic medications and is otherwise safe for discharge History & Record Review Discussion w/independent historian: Patient and Significant other Discharge Plan Triage Chief Complaint: Rash ED Provider: Rachid Arevalo Dx/Rx/DC Orders Clinical Impression: Contact dermatitis, Hypertension, Fibromyalgia, Hyperlipidemia Instructions: Understanding Contact Dermatitis, ED General Allergic Reactions Prescriptions: New desonide 0.05 % cream 1 applic topical TID PRN (Reason: skin irritation) Qty: 60 0RF prednisone 10 mg tablet 10 mg PO DAILY Qty: 63 0RF Rx Instructions: 60 mg p.o. daily ?3 days, 50 mg p.o. daily ?3 days, 40 mg p.o. daily ?3 days, 30 mg p.o. daily ?3 days, 20 mg p.o. daily ?3 days, 10 mg p.o. daily ?3 days. No Action multivitamin [Daily Multiple] 1 EACH tablet 1 ea PO DAILY meloxicam [Mobic] 7.5 MG tablet 7.5 mg PO BID PRN PRN (Reason: inflammation) omeprazole 20 MG capsule 20 mg PO DAILY budesonide [Pulmicort] 0.5 MG/2 ML suspension for nebulization 0.5 mg IH BID alcohol swabs [Alcohol Prep Swabs] 1 EACH pads, medicated 1 ea TP DAILY epinephrine [EpiPen] 0.3 MG/0.3 ML auto-injector 0.3 mg IJ X1 PRN (Reason: allergic reaction) ipratropium bromide 1 SPRAY spray,non-aerosol 1 spray NASAL DAILY naproxen 500 MG tablet 500 mg PO BID pregabalin [Lyrica] 150 MG capsule 150 mg PO BID chlorhexidine gluconate 15 ML towelette 1 applic TP DAILY metformin 500 MG tablet 500 mg PO 4X/DAY metronidazole [Vandazole] 1 APPLIC gel 1 applic VG DAILY PRN (Reason: vaginal itch) spironolactone [Aldactone] 100 MG tablet 100 mg PO DAILY estropipate 1.5 MG tablet 1.5 mg PO DAILY estradiol 1 MG tablet 3 mg PO TID rizatriptan 10 MG tablet,disintegrating 10 mg PO X1 simvastatin 20 MG tablet 20 mg PO QHS triamcinolone acetonide [Nasacort] 1 SPRAY aerosol,spray 1 spray NS BID lactulose [Constulose] 10 GM/15 ML solution 10 g PO DAILY Clobetasol Propionate/Emoll [Clobetasol Emollient 0.05% Crm] 15 GM Cream..G. 30 g TP DAILY PRN PRN (Reason: Itching) lisinopril 10 MG tablet 10 mg PO DAILY Qty: 30 0RF amlodipine 5 MG tablet 5 mg PO DAILY Qty: 30 1RF atorvastatin 40 mg tablet 40 mg PO DAILY Patient Comments: take 1 tablet by mouth at bedtime meclizine 25 mg tablet 25 mg PO 4X/DAY PRN PRN (Reason: Dizziness) Qty: 20 0RF albuterol sulfate 90 mcg/actuation HFA aerosol inhaler inhalation loratadine-pseudoephedrine [Claritin-D 24 Hour] 10-240 mg tablet extended release 24 hr 1 tab PO DAILY Qty: 30 2RF Primary Care Provider: Mario Eckert Referrals: Mario Eckert MD [Primary Care Provider] - Activity Restrictions/Additional Instructions: Please take the prescribed medications as directed to help resolve your allergic reaction. It would typically take about 3 days for symptoms to improve. If you have any further concerns or worsening of symptoms please return for repeat evaluation Print Language: Sinhala Disposition Disposition: Home, Self Care Discharge Date/Time: 04/18/24 01:52
== END 2024-04-18 01:52 | disposition home or self-care (01) ==
PROVIDERS: Emergency Provider Emergency Medicine; PCP Internal Medicine; Visit Provider Emergency Medicine
DX: L25.9 Unspecified contact dermatitis, unspecified cause (principal); E11.40 Type 2 diabetes mellitus with diabetic neuropathy, unspecified; I10 Essential (primary) hypertension; E78.00 Pure hypercholesterolemia, unspecified; M79.7 Fibromyalgia; Z79.899 Other long term (current) drug therapy; Z79.84 Long term (current) use of oral hypoglycemic drugs
CPT/HCPCS: 96374; 96375; 99283; A4216; J3490